=== PATIENT | female | born 1945 | race Caucasian/White ===

== ENCOUNTER 2017-07-31 12:07 | Emergency (ER) | payer MEDICARE, BC, SELFPAY ==
[2017-07-31 12:31] VITALS: BP 97/61; PULSE 68; RESP 20; TEMP 36.4; O2SAT 98; BMI 26.3
--- NOTE | 2017-07-31 12:55 | HMH.EDUTC ---
[facility] [place] Disposition Clinical Impression: Vomiting and diarrhea Disposition: Home, Self-Care Condition on Discharge: Good Instructions: DI for Vomiting -- Adult, Diarrhea, DI for Nausea -- Adult Additional Instructions: Follow up with family doctor tomorrow at appointment at 10am Return if needed Make sure to drink plenty of water, gatoraide etc Dry toast and crackers will help with upset stomach Collect stool sample and bring back to Lab with order you was given in [facility] Prescriptions: Ondansetron [Zofran 4mg ODT] 4 mg PO Q8H PRN #20 tab.rapdis PRN Reason: Nausea Referrals: Michelle Finley [Referring] - Time of Disposition: 13:44 Medical Decision Making Vital Signs: 07/31/17 12:31 Temperature 97.5 F L Temperature Source Temporal Artery Scan Pulse Rate [Right] 68 Respiratory Rate 20 Blood Pressure [Right Arm] 97/61 Blood Pressure Mean [Right Arm] 73 Blood Pressure Source [Right Arm] Automatic Cuff Blood Pressure Position [Right Arm] Sitting 02 Sat by Pulse Oximetry 98 Oxygen Delivery Method Room Air - Lab Data Lab results reviewed: Yes: I reviewed the patient's lab results. Orders (Tests/Meds): ED MEDICATIONS Discontinued Medications Generic Name Dose Route Start Last Admin Trade Name Freq PRN Reason Stop Dose Admin Ondansetron HCl 4 mg 07/31/17 13:06 07/31/17 13:15 Zofran 4mg Odt SL 07/31/17 13:07 4 mg ONCE ONE Administration ORDERS Category Date Time Status Diarrhea Panel, PCR Stat Lab 07/31/17 13:07 Ordered - Cj Inquiry Pt receiving controlled substance: No Cj was queried for this patient: No - Reevaluation(s) Time: 13:04 Reevaluation #1: Patient family doctor Dr Michelle Finley with [facility] Primary care. Called office and informed them of patient complaint and agreed Patient given appointment in the morning and Diarrhea Panel will be ordered here with request that results be sent to Dr Finley and patient to follow up in the morning at 10:00 For results and treatment. No distress Time: 13:27 Reevaluation #3: Patient no diarrhea since arrival advised that she is unable to collect specimen at this time Patient was given out patient order and specimen collection cup and advised that after she collects specimen bring it straight to lab. It was recommended to patient that she have a bolus of NS due to all the diarrhea and vomiting. Mucous membranes moist at that this time and patient refused Iv and bolus [facility] [place] HPI - General Stated complaint: Diarrhea left side pain Mode of Arrival: Ambulatory Source of Information: Patient Limitations: No Limitations Description of Symptoms (Recalled from Triage Doc. by RN): ABD PAIN, DIARRHEA SINCE THURSDAY, ON AMOX FOR BRONCHITIS HEENT Symptoms (Recalled from RN notes): No Resp Symptoms (Recalled from RN notes): No Skin Symptoms (Recalled from RN notes): No MS Symptoms (Recalled from RN notes): No Functional Status (Recalled from RN notes): N - History of Present Illness Provider Complaint: Patient state that she has recently being treated with Amoxicillin for Bronchitits States that for last couple of days she has been having abd. cramping, nausea, vomiting and diarrhea. State that this morning her diarrhea was watery and her family made her come in to get checked State that she is not sure if she may have a virus or if this because of the medication - Related Data Home Medications Medication Instructions Recorded Confirmed Metoprolol Tartrate [Lopressor 50 mg PO BID 07/31/17 07/31/17 50mg tablet] Previous Rx's Medication Instructions Recorded Ondansetron [Zofran 4mg ODT] 4 mg PO Q8H PRN #20 tab.rapdis 07/31/17 Allergies Allergy/AdvReac Type Severity Reaction Status Date / Time cephalexin [From Keflex] Allergy Intermediate Verified 07/31/17 12:35 erythromycin base Allergy Intermediate Verified 07/31/17 12:35 [From Erythrocin] Sulfa (Sulfonamide Allergy
--- NOTE | 2017-07-31 12:58 | ED_ITS ---
[facility] [place] Disposition Clinical Impression: Vomiting and diarrhea Disposition: Home, Self-Care Condition on Discharge: Good Instructions: DI for Vomiting -- Adult, Diarrhea, DI for Nausea -- Adult Additional Instructions: Follow up with family doctor tomorrow at appointment at 10am Return if needed Make sure to drink plenty of water, gatoraide etc Dry toast and crackers will help with upset stomach Collect stool sample and bring back to Lab with order you was given in [facility] Prescriptions: Ondansetron [Zofran 4mg ODT] 4 mg PO Q8H PRN #20 tab.rapdis PRN Reason: Nausea Referrals: Michelle Finley [Referring] - Time of Disposition: 13:44 Medical Decision Making Vital Signs: 07/31/17 12:31 Temperature 97.5 F L Temperature Source Temporal Artery Scan Pulse Rate [Right] 68 Respiratory Rate 20 Blood Pressure [Right Arm] 97/61 Blood Pressure Mean [Right Arm] 73 Blood Pressure Source [Right Arm] Automatic Cuff Blood Pressure Position [Right Arm] Sitting 02 Sat by Pulse Oximetry 98 Oxygen Delivery Method Room Air - Lab Data Lab results reviewed: Yes: I reviewed the patient's lab results. Orders (Tests/Meds): ED MEDICATIONS Discontinued Medications Generic Name Dose Route Start Last Admin Trade Name Freq PRN Reason Stop Dose Admin Ondansetron HCl 4 mg 07/31/17 13:06 07/31/17 13:15 Zofran 4mg Odt SL 07/31/17 13:07 4 mg ONCE ONE Administration ORDERS Category Date Time Status Diarrhea Panel, PCR Stat Lab 07/31/17 13:07 Ordered - Cj Inquiry Pt receiving controlled substance: No Cj was queried for this patient: No - Reevaluation(s) Time: 13:04 Reevaluation #1: Patient family doctor Dr Michelle Finley with [facility] Primary care. Called office and informed them of patient complaint and agreed Patient given appointment in the morning and Diarrhea Panel will be ordered here with request that results be sent to Dr Finley and patient to follow up in the morning at 10:00 For results and treatment. No distress Time: 13:27 Reevaluation #3: Patient no diarrhea since arrival advised that she is unable to collect specimen at this time Patient was given out patient order and specimen collection cup and advised that after she collects specimen bring it straight to lab. It was recommended to patient that she have a bolus of NS due to all the diarrhea and vomiting. Mucous membranes moist at that this time and patient refused Iv and bolus [facility] [place] HPI - General Stated complaint: Diarrhea left side pain Mode of Arrival: Ambulatory Source of Information: Patient Limitations: No Limitations Description of Symptoms (Recalled from Triage Doc. by RN): ABD PAIN, DIARRHEA SINCE THURSDAY, ON AMOX FOR BRONCHITIS HEENT Symptoms (Recalled from RN notes): No Resp Symptoms (Recalled from RN notes): No Skin Symptoms (Recalled from RN notes): No MS Symptoms (Recalled from RN notes): No Functional Status (Recalled from RN notes): N - History of Present Illness Provider Complaint: Patient state that she has recently being treated with Amoxicillin for Bronchitits States that for last couple of days she has been having abd. cramping, nausea, vomiting and diarrhea. State that this morning her diarrhea was watery and her family made her come in to get checked State that she is not sure if she may have a virus or if this
== END 2017-07-31 13:52 | disposition home or self-care (01) ==
PROVIDERS: Emergency Provider Nurse Practitioner
DX: R11.10 Vomiting, unspecified (principal); R19.7 Diarrhea, unspecified; Z79.899 Other long term (current) drug therapy; F17.210 Nicotine dependence, cigarettes, uncomplicated; Z88.3 Allergy status to other anti-infective agents; Z88.2 Allergy status to sulfonamides; Z88.8 Allergy status to other drugs, medicaments and biological substances
CPT/HCPCS: 99201

== ENCOUNTER → 2018-02-18 09:37 | Outpatient (CLI) | payer MEDICARE, BC, SELFPAY ==
--- NOTE | 2018-02-18 09:51 | XR_ITS ---
XR hip LT 2-3V w/pelvis HISTORY: ITS.REASON: Left HIP AND LEG PAIN ORDERING PHYSICIAN: Michelle Finley PATIENT AGE: 72 years COMPARISON: None FINDINGS: No fracture or dislocation is evident. Mild osteoarthritic changes noted of the left hip with mild spurring of the acetabulum inferiorly. Chondrocalcinosis involves the symphysis pubis. No lytic or blastic change. IMPRESSION: Mild osteoarthritis of left hip
--- NOTE | 2018-02-18 09:51 | XR_ITS ---
XR hip RT 2-3V w/pelvis HISTORY: ITS.REASON: RT HIP AND LEG PAIN ORDERING PHYSICIAN: Michelle Finley PATIENT AGE: 72 years COMPARISON: None FINDINGS: No fracture or dislocation is evident. There are mild osteoarthritic changes of the right hip. No lytic or blastic change. IMPRESSION: Mild osteoarthritis of the right hip.
== END ==
PROVIDERS: PCP Family Medicine; Visit Provider Family Medicine
DX: M79.604 Pain in right leg (principal); M25.551 Pain in right hip
CPT/HCPCS: 73502

== ENCOUNTER 2019-09-15 20:33 | Observation (INO) ==
[2019-09-15 20:58] LABS: Anion Gap 13.7 mEq/L (5-15); Blood Urea Nitrogen 12 mg/dl (7-17); Carbon Dioxide 27 mmol/L (22.0-30.0); Chloride 103 mmol/L (98-107); Glucose 163 mg/dl (74-100); Sodium 140 mmol/L (136-145)
--- NOTE | 2019-09-15 21:19 | Emergency Department Note ---
ED Disposition Clinical Impression: Chest pain at rest Disposition: Admitted as Observation Condition on Discharge: Good - Critical Care Critical Care Time: No Attestation: On 09/15/19, the high probability of a clinically significant, sudden or life threatening deterioration of the following system(s) required my full and direct attention, intervention and personal management. The time I documented below is in addition to time spent performing reported procedures but includes the following listed in this critical care notation. Medical Decision Making - Medical Records Medical records reviewed: Yes: I reviewed the patient's medical records. - Cj Inquiry Pt receiving controlled substance: No Vital Signs: 09/15/19 20:34 Temperature 98.5 F Temperature Source Oral Pulse Rate [Left Radial] 89 Respiratory Rate 16 Blood Pressure [Right Arm] 112/74 Blood Pressure Mean [Right Arm] 86 Blood Pressure Source [Right Arm] Automatic Cuff Blood Pressure Position [Right Arm] Sitting 02 Sat by Pulse Oximetry 98 Oxygen Delivery Method Room Air - Lab Data Lab results reviewed: Yes: I reviewed the patient's lab results. Lab Results 09/15/19 20:40: WBC 6.0, RBC 4.04 L, Hgb 12.2, Hct 38.0, MCV 94.1, MCH 30.3, MCHC 32.2, RDW 13.1, Plt Count 169, MPV 9.6, Neut % (Auto) 55.7, Lymph % (Auto) 35.2, [place] % (Auto) 6.7, Eos % (Auto) 1.7, Baso % (Auto) 0.6, Neut # (Auto) 3.3, Lymph # (Auto) 2.1, [place] # (Auto) 0.4, Eos # (Auto) 0.1, Baso # (Auto) 0.0 09/15/19 20:40: Sodium 140, Potassium 3.7, Chloride 103, Carbon Dioxide 27, Anion Gap 13.7, BUN 12, Creatinine 0.70, Estimated Creat Clear 55, Estimated GFR 82, Est GFR ( Amer) 100, Glucose 163 H, Calcium 9.0, Troponin I < 0.01 Result diagrams: 09/15/19 20:40 09/15/19 20:40 Orders (Tests/Meds): ED MEDICATIONS Discontinued Medications Generic Name Dose Route Start Last Admin Trade Name Freq PRN Reason Stop Dose Admin Aspirin 324 mg 09/15/19 21:28 09/15/19 21:34 Aspirin 81mg Chewable Tablet PO 09/15/19 21:29 324 mg ONCE ONE Administration Nitroglycerin 1 gm 09/15/19 21:40 Nitroglycerin 1 Inch Oint Udp TD 09/15/19 21:41 ONCE ONE ORDERS Category Date Time Status CT head/brain wo con Stat Cat Scan 09/15/19 20:47 Taken XR chest 2V Stat Exams 09/15/19 20:47 Taken Troponin I Q3H Lab 09/15/19 23:47 Ordered Troponin I Q3H Lab 09/16/19 02:47 Ordered Urinalysis and Microscopic Stat Lab 09/15/19 20:46 Ordered - Radiology Data #1 Image(s): Chest Image Reviewed: Yes I reviewed the patient's radiology image Preliminary Findings: Normal/NAD - ECG Data Tracing #1 Normal Sinus Rhythm: Yes Ischemic changes: non-specific ST-T wave changes - Physician Consults Physician Consulted: ramon Reason -: Admission Chest Pain HPI - General Chief Complaint: Chest Pain Stated Complaint: chest pain Time Seen by Provider: 09/15/19 20:45 Mode of Arrival: Wheelchair Source of Information: Patient, Medical Record Limitations: No Limitations Description of Symptoms (Recalled from ER Triage Doc. by RN): pt stated she had chest pain at home about an hour ago and took two nitro. pt now c/o left arm pain, lower back pain and nausea. per pt daughter the pt has been confused. pt is alert and oriented to person, place and time and denies any chest pain at this time. - History of Present Illness HPI narrative: pt with hx of cad with last stent 2017 and had chest pain and lt upper ext pain last pm and again today with pos relief with ntg - MD complaint: chest pain indicative of cardiac Onset (ago): hour(s) Duration: now resolved Activity at onset: during rest Pain location: left chest Severity: moderate Quality: dull Pain radiation: LUE Relieving factors: nitroglycerin Risk Factors for CAD: Hypertension, Family Hx of CAD Treatments prior to or on arrival for Cardiac Chest Pain: nitroglycerin - DAMION Score for Non-Stemi Age of Patient: 70-79 years old Heart Rate: 70-89 bpm Systolic Blood Pressure: 100-119 mmHg Serum Creatinine: 0.40-0.79 mg/dl CHF [place] Class: I-No CHF Other Risk Factors: None Non-Stemi Risk Score: 131 - Related Data On Oral Contraceptives: No Home Medications Medication Instructions Recorded Confirmed aspirin 81 mg tablet,delayed 81 mg PO DAILY tab 01/12/18 06/03/18 release escitalopram oxalate 20 mg tablet 10 mg PO BID tab 01/12/18 06/03/18 fluticasone propionate 50 1 spray INTRANASAL DAILY g 01/12/18 06/03/18 mcg/actuation nasal spray,suspension simvastatin 40 mg tablet 40 mg PO QPM 01/12/18 06/03/18 tizanidine 4 mg capsule 4 mg PO QHS PRN cap 01/21/18 06/03/18 Amlodipine Besylate [Norvasc 2.5mg 2.5 mg PO DAILY 03/16/18 06/03/18 Tab] metoprolol tartrate 50 mg tablet 25 mg PO BID tab 04/29/18 06/03/18 naproxen 500 mg tablet 500 mg PO BID PRN 04/29/18 06/03/18 Previous Rx's Medication Instructions Recorded nitroglycerin 0.4 mg sublingual 0.4 mg SUBLINGUAL Q5-15M PRN #30 01/21/18 tablet tab omeprazole 40 mg capsule,delayed 40 mg PO QDAY #90 cap 06/03/18 release Allergies Allergy/AdvReac Type Severity Reaction Status Date / Time cephalexin [From Keflex] Allergy Intermediate Verified 06/03/18 11:16 erythromycin base Allergy Intermediate Verified 06/03/18 11:16 [From Erythrocin] Sulfa (Sulfonamide Allergy Intermediate Verified 06/03/18 11:16 Antibiotics) acetaminophen [From Percocet] Allergy Verified 06/03/18 11:16 oxycodone [From Percocet] Allergy Verified 06/03/18 11:16 [facility] History - Hepatitis A Screen Drug use history?: No High risk sexual behaviors?: No History of sexually transmitted infection?: No Currently employed?: No Childcare worker?: No Do you have indoor plumbing?: Yes Do you have electricity?: Yes Attestation statement:: This patient has been screened for Hepatitis A risk factors. I have reviewed the patient's past medical history: Yes Medical History: Reports:: Coronary Artery Disease, Myocardial Infarction Denies:: Diabetes Mellitus Type 1, Diabetes Mellitus Type 2, Internal Pacemaker, Lung Disease, Seizures Other Surgeries: Yes: Appendectomy, Cardiac Catheterization, Cholecystectomy, Coronary Stent, Hysterectomy-Partial. No: Pacemaker Amputation: No Fractures: No - Social History Smoking Status: Current every day smoker Tobacco Type: cigarettes # Packs/Day (cigarettes): 1 #Yrs smoked (if former smoker): 50 Alcohol Intake: never Alcohol Intake Frequency:: holidays/special occasions only Substance Use Type: denies use Occupational Status: retired Household Members: none Family Hx:: Coronary Artery Disease, Heart Attack, Cancer ROS Obtained: Yes All systems reviewed & no additional complaints - Constitutional Constitutional: Denies fever(s) - Eyes Eyes: Denies change in vision - ENT Ears, Nose, Mouth, and Throat: Denies sore throat - Cardiovascular Cardiovascular: Reports as per HPI, Reports chest pain, Denies dyspnea, Reports radiating jaw, neck or arm pain - Respiratory Respiratory: No cough - Gastrointestinal Gastrointestingal: Denies: abdominal pain - Genitourinary Female Genitourinary: Denies hematuria - Musculoskeletal Musculoskeletal: Denies joint pain, Denies joint swelling - Integumentary/Breasts Skin/Breast: Denies rash - Neurologic Neurologic: Denies headache(s), Denies seizure-like activity Physical Exam - General General appearance: alert - Head Head exam: normocephalic - Eye Eye exam: Present: PERRL, EOMI. Absent: scleral icterus - ENT ENT exam: Present: mucous membranes moist - Neck Neck exam: Present: trachea midline - Respiratory Respiratory exam: Present: normal lung sounds bilaterally. Absent: respiratory distress - Cardiovascular Cardiovascular exam: Present: regular rate, systolic murmur, +S4 - Abdominal Exam Abdominal exam: Present: soft - Extremities Exam Extremities exam: Present: full ROM. Absent: calf tenderness - Neurological Exam Neurological exam: Present: alert, oriented X3, CN II-XII intact - Psychiatric Psychiatric exam: Present: normal affect - Skin Skin exam: Absent: rash
[2019-09-15 21:27] LABS: Basophils % 0.6 % (0.1-2.0); Eosinophils # 0.1 K/mm3 (0.0-0.4); Eosinophils % 1.7 % (0.1-12.0); Hemoglobin 12.2 g/dL (12.2-16.2); Lymphocytes # 2.1 K/mm3 (0.7-4.5); Lymphocytes % 35.2 % (10-50); Mean Corpuscular HGB Conc 32.2 g/dL (31.8-35.4); Mean Corpuscular Volume 94.1 fl (81-99); Mean Platelet Volume 9.6 fl (7.4-10.4); Monocytes # 0.4 K/mm3 (0.1-1.0); Monocytes % 6.7 % (1.7-9.3); Neutrophils # 3.3 K/mm3 (1.8-7.8); Neutrophils % 55.7 % (37.0-80.0); Platelet Count 169 K/mm3 (142-424); Red Blood Count 4.04 M/mm3 (4.20-5.40); Red Cell Distribution Width 13.1 % (11.5-17.5)
[2019-09-15 22:11] LABS: Microscopic, Urine URINE MICROSCOPIC (MICROSCOPIC)
[2019-09-15 22:14] LABS: Appearance,Urine CLEAR (Clear); Bilirubin,Urine Negative (Negative); Blood, Urine Negative (Negative); Color,Urine YELLOW (Yellow); Glucose,Urine (UA) Negative (Negative); Ketones,Urine Negative (Negative); Leukocyte Esterase,Urine Negative (Negative); Protein,Urine Negative (Negative); Urobilinogen,Urine 0.2 EU/dl (0.2)
[2019-09-15 22:21] LABS: WBC,Urine Occasional #/hpf (0-3)
[2019-09-15 22:22] LABS: Bacteria,Urine Trace /lpf
[2019-09-16 06:25] LABS: Basophils % 0.4 % (0.1-2.0); Eosinophils # 0.1 K/mm3 (0.0-0.4); Hematocrit 35.5 % (37.0-47.0); Hemoglobin 11.9 g/dL (12.2-16.2); Lymphocytes # 1.8 K/mm3 (0.7-4.5); Mean Corpuscular HGB Conc 33.5 g/dL (31.8-35.4); Mean Corpuscular Volume 91.6 fl (81-99); Mean Platelet Volume 9.4 fl (7.4-10.4); Monocytes # 0.3 K/mm3 (0.1-1.0); Monocytes % 6.6 % (1.7-9.3); Neutrophils # 2.5 K/mm3 (1.8-7.8); Neutrophils % 53.1 % (37.0-80.0); Platelet Count 163 K/mm3 (142-424); Red Blood Count 3.88 M/mm3 (4.20-5.40); White Blood Count 4.7 K/mm3 (4.8-10.8)
[2019-09-16 06:39] LABS: Anion Gap 10.8 mEq/L (5-15); Calcium 8.9 mg/dl (8.4-10.2); Chol/HDL Ratio 2.9 (1-3.5)
--- NOTE | 2019-09-16 08:06 | Pharmacy Consult Notes ---
[facility] Pharmacy VTE Monitoring - Patient Demographics Admission date: 09/16/19 Report Date: 09/16/19 Time: 08:05 Allergies/Adverse Reactions: Patient Allergies cephalexin [From Keflex] Allergy (Intermediate, Verified 06/03/18 11:16) erythromycin base [From Erythrocin] Allergy (Intermediate, Verified 06/03/18 11:16) Sulfa (Sulfonamide Antibiotics) Allergy (Intermediate, Verified 06/03/18 11:16) acetaminophen [From Percocet] Allergy (Verified 06/03/18 11:16) oxycodone [From Percocet] Allergy (Verified 06/03/18 11:16) Height: 1.68 m Weight: 69.655 kg Patient Problems: Current Active Problems Chest pain at rest (Acute) - VTE Risk Labs: VTE Related Lab Results Hgb 11.9 g/dL (12.2-16.2) L 09/16/19 05:50 Hct 35.5 % (37.0-47.0) L 09/16/19 05:50 Plt Count 163 K/mm3 (142-424) 09/16/19 05:50 BUN 10 mg/dl (7-17) 09/16/19 05:50 Creatinine 0.50 mg/dl (0.52-1.04) L D 09/16/19 05:50 Estimated Creat Clear 56 mL/min (50-200) 09/16/19 05:50 Was VTE Risk Assessment Performed: Yes VTE Score: 6 VTE Risk Level: Moderate Risk Clinical Trial Participant: No - Prophylaxis VTE Prophylaxis Ordered?: Yes Types of VTE Prophylaxis: TEDS Knee High
--- NOTE | 2019-09-16 08:16 | History & Physical Report ---
*Admission Date: 09/16/19 *Chief complaint: Chest pain *History of present illness: This 74-year-old white female with known coronary artery disease presented in the emergency room last evening with chest pain, epigastric discomfort and left breast discomfort. She had some radiation to the back and left arm. She had nausea may be some shortness of breath. She took nitroglycerin and the chest pain went away after about 5 minutes. She was watching TV when the onset of the pain occurred. She states that she has a "stent in the maker" placed by Dr. Drew 6 or 7 years ago at [facility]. About [address] Dr[address] Dillon and Dr. EVANGELISTA. She is not had follow-up with them. She had a cardiac catheterization here by Dr. Dillon 2018 but did not require a stent. She has moved here from [facility] to live with her son Pranav Roberto. Her daughter reports some recent confusion and the patient admits to this. She has had some memory loss specifically in terms of searching for words. She is a smoker and continues to smoke a pack of cigarettes per day. She is smoked since the age of 17. There is a strong family history of heart disease. [facility] History Medical History: Reports:: Coronary Artery Disease ("Stent in the maker"), Hyperlipidemia, Hypertension, Myocardial Infarction Denies:: Diabetes Mellitus Type 1, Diabetes Mellitus Type 2, Internal Pacemaker, Lung Disease, Seizures *Have you ever received a pneumonia vaccine?: Yes *Have you received a flu vaccine this season?: Yes Other Medical History: Reports: Cataracts. Denies: Fibromyalgia, Thyroid Disease Laterality Cases: Left: Lumpectomy Other Surgeries: Yes: Appendectomy, Cardiac Catheterization, Cholecystectomy, Coronary Stent, Hysterectomy-Partial. No: Pacemaker Amputation: No Fractures: No - *Social History Educational Level: Attended College Smoking Status: Current every day smoker Tobacco Type: cigarettes # Packs/Day (cigarettes): 1 #Yrs smoked (if former smoker): 50 Alcohol Intake: never Alcohol Intake Frequency:: holidays/special occasions only Substance Use Type: denies use *Occupational Status:: retired Household Members: none *Travel in the last 8 weeks: None Family Hx:: Cancer, Coronary Artery Disease, Diabetes Review of Systems - Constitutional Denies body ache(s), Denies chills - Eyes Denies change in vision - ENT Reports abnormal hearing, Reports dizziness, Denies difficulty swallowing - *Cardiovascular Reports chest pain, Reports chest pain at rest, Reports leg swelling, Denies rapid, pounding, or irregular heartbeat - *Respiratory Reports shortness of breath, Denies chest congestion, Denies cough - *Gastrointestinal Denies abdominal pain - *Genitourinary Reports dribbling after urination, Reports difficulty starting urination (When she was on medication), Reports urinary incontinence - *Musculoskeletal Reports joint pain, Reports back pain - *Neurologic Reports confusion (Her daughter reports some confusion.), Reports memory loss (Particularly when choosing words.), Denies headache(s), Denies seizure-like activity - Hematologic/Lymphatic Denies easy bleeding - Allergic/Immunologic Denies GI upset with certain foods Meds Home Medications Medication Instructions Recorded Confirmed Type aspirin 81 mg tablet,delayed 81 mg PO DAILY tab 01/12/18 09/16/19 History release escitalopram oxalate 20 mg tablet 10 mg PO DAILY tab 01/12/18 09/16/19 History fluticasone propionate 50 1 spray INTRANASAL DAILY g 01/12/18 09/16/19 History mcg/actuation nasal spray,suspension simvastatin 40 mg tablet 40 mg PO HS 01/12/18 09/16/19 History nitroglycerin 0.4 mg sublingual 0.4 mg SUBLINGUAL Q5-15M PRN #30 01/21/18 09/16/19 Rx tablet tab tizanidine 4 mg capsule 4 mg PO HSP PRN cap 01/21/18 09/16/19 History RX: Amlodipine Besylate [Norvasc 2.5 mg PO DAILY 03/16/18 09/16/19 History 2.5mg Tab] omeprazole 40 mg capsule,delayed 40 mg PO QDAY #90 cap 06/03/18 09/16/19 Rx release Ibuprofen [Ibuprofen 600mg 600 mg PO Q6HP PRN 09/16/19 09/16/19 History Tablet] RX: Meclizine HCl 25 mg PO TID PRN 09/16/19 09/16/19 History RX: Metoprolol Tartrate [Lopressor 25 mg PO BID 09/16/19 09/16/19 History 25mg tablet] Allergies Allergy/AdvReac Type Severity Reaction Status Date / Time cephalexin [From Keflex] Allergy Intermediate Verified 06/03/18 11:16 erythromycin base Allergy Intermediate Verified 06/03/18 11:16 [From Erythrocin] Sulfa (Sulfonamide Allergy Intermediate Verified 06/03/18 11:16 Antibiotics) acetaminophen [From Percocet] Allergy Verified 06/03/18 11:16 oxycodone [From Percocet] Allergy Verified 06/03/18 11:16 Exam Vital signs and Labs for Last 24 Hours: Temp Pulse Resp BP Pulse Ox 97.5 F L 65 16 129/78 91 L 09/16/19 04:00 09/16/19 04:00 09/16/19 04:00 09/16/19 04:00 09/16/19 04:00 Laboratory Results - last 24 hr 09/15/19 20:40: WBC 6.0, RBC 4.04 L, Hgb 12.2, Hct 38.0, MCV 94.1, MCH 30.3, MCHC 32.2, RDW 13.1, Plt Count 169, MPV 9.6, Neut % (Auto) 55.7, Lymph % (Auto) 35.2, [place] % (Auto) 6.7, Eos % (Auto) 1.7, Baso % (Auto) 0.6, Neut # (Auto) 3.3, Lymph # (Auto) 2.1, [place] # (Auto) 0.4, Eos # (Auto) 0.1, Baso # (Auto) 0.0 09/15/19 20:40: Sodium 140, Potassium 3.7, Chloride 103, Carbon Dioxide 27, Anion Gap 13.7, BUN 12, Creatinine 0.70, Estimated Creat Clear 55, Estimated GFR 82, Est GFR ( Amer) 100, Glucose 163 H, Calcium 9.0, Troponin I < 0.01 09/15/19 20:44: POC Glucose 186 H 09/15/19 22:07: Urine Color Yellow, Urine Appearance Clear, Urine pH 6.0, Ur Specific [place] 1.020, Urine Protein Negative, Urine Glucose (UA) Negative, Urine Ketones Negative, Urine Blood Negative, Urine Nitrate Negative, Urine Bilirubin Negative, Urine Urobilinogen 0.2, Ur Leukocyte Esterase Negative, Urine WBC Occasional, Ur Squamous Epith Cells 3-5, Urine Bacteria Trace 09/16/19 00:06: Troponin I < 0.01 09/16/19 02:50: Troponin I < 0.01 09/16/19 05:50: WBC 4.7 L, RBC 3.88 L, Hgb 11.9 L, Hct 35.5 L, MCV 91.6, MCH 30.7, MCHC 33.5, RDW 13.0, Plt Count 163, MPV 9.4, Neut % (Auto) 53.1, Lymph % (Auto) 38.0, [place] % (Auto) 6.6, Eos % (Auto) 2.0, Baso % (Auto) 0.4, Neut # (Auto) 2.5, Lymph # (Auto) 1.8, [place] # (Auto) 0.3, Eos # (Auto) 0.1, Baso # (Auto) 0.0 09/16/19 05:50: Sodium 143, Potassium 3.8, Chloride 107, Carbon Dioxide 29, Anion Gap 10.8, BUN 10, Creatinine 0.50 L D, Estimated Creat Clear 56, Estimated GFR 121, Est GFR ( Amer) 147 D, Glucose 97 D, Calcium 8.9, Magnesium 2.1, Triglycerides 56, Cholesterol 129 L, LDL Cholesterol Direct 74.78 L, VLDL Cholesterol 11, HDL Cholesterol 44, Cholesterol/HDL Ratio 2.9 I & O for Last 24 hours: Intake & Output 09/13/19 09/14/19 09/15/19 09/16/19 11:59 11:59 11:59 11:59 Intake Total 249 / 249 Output Total 550 / 550 Balance -301 / -301 Weight 153 lb 9.008 oz - Constitutional no acute distress (No current chest pain.) - *Routine HEENT Exam Head: Present: normocephalic Eye: Present: PERRL ENT: Present: mucous membranes moist (Edentulous wears prostheses) - *Routine Neck Exam Present: supple. Absent: carotid bruit - Routine Chest/Breast/Axilla Exam Chest wall: Absent: tenderness - *Routine Respiratory Exam Present: decreased breath sounds, rales, rhonchi - *Routine Cardiovascular Exam Present: RRR - *Routine Abdominal Exam Present: soft. Absent: tenderness, mass - *Routine Extremities Exam Present: edema (Minimal). Absent: joint swelling - *Routine Neurological Exam Present: alert, oriented X3. Absent: altered mental status, hearing grossly intact (Deficit evident) Assessment and Plan (1) Chest pain at rest Current visit: Yes Status: Acute Category: Medical Code(s): R07.9 - Chest pain, unspecified (2) CAD (coronary artery disease) Current visit: No Status: Chronic Qualifiers: Coronary Disease-Associated Artery/Lesion type: [place] artery [place] vs. transplanted heart: [place] heart Associated angina: angina presence unspecified Qualified Code(s): I25.10 - Atherosclerotic heart disease of [place] coronary artery without angina pectoris Category: Medical Code(s): I25.10 - Atherosclerotic heart disease of [place] coronary artery without angina pectoris (3) Tobacco abuse Current visit: Yes Status: Acute Category: Medical Code(s): Z72.0 - Tobacco use (4) HLD (hyperlipidemia) Current visit: No Status: Chronic Qualifiers: Hyperlipidemia type: mixed hyperlipidemia Qualified Code(s): E78.2 - Mixed hyperlipidemia Category: Medical Code(s): E78.5 - Hyperlipidemia, unspecified - Assessment and plan all Dx Assessment and Plan for all problems:: The patient has been seen by cardiology and cardiac catheterization is planned for today.
--- NOTE | 2019-09-16 08:35 | Consult Report ---
History of Present Illness Consult date: 09/16/19 Requesting physician: Steven Latif Consult reason: chest pain Chief complaint: chest pain Additional Medical History:: 1. CAD A. History of coronary stenting approximately 2012, Dr. KEVIN Derw, [facility] B. Cardiac cath, 01/2018, ANGIOGRAPHIC RESULTS: 1. The left main artery is a mild eccentric 10% stenosis 2. The left anterior descending artery is proximally normal with mid vessel 20% stenoses along a tortuous bend 3. The circumflex artery is nondominant and has proximal 40% stenoses. 4. The right coronary artery is a dominant vessel and has a proximal 40% stenosis followed by an additional 60-70% stenosis immediately proximal to a stent. The distal vessels normal 5. The RODGERS ventriculogram reveals normal 65% 6. The left ventricular end-diastolic pressure 20 mmHg IMPRESSION: 1. Coronary artery disease as described above with the right coronary artery lesion creating an FFR index of 0.84 not meeting hemodynamic significance for stenting 2. Normal ejection fraction 3. Mildly elevated LVEDP 2. Tobacco use 3. Hypertension A. Echo, 01/2018, 1. Left atrium is qualitatively mildly enlarged, left ventricle is normal size, mild concentric left ventricular hypertrophy, visually estimated ejection fraction approximately 50%, there appears to be moderate hypokinesis involving the basal septum and inferobasal wall. 2. The right atrium and right ventricle are mildly enlarged with normal contractility. 3. The aortic valve is thickened and calcified leaflet continue to display mobility. 4. The mitral and tricuspid valve are grossly normal. 5. The pulmonic valve is poorly visualized. 6. No significant pericardial effusion noted. DOPPLER INTERROGATION: Doppler interrogation of the aortic, mitral and tricuspid valvular presence of trace aortic, mild mitral and tricuspid regurgitation, calculated right ventricular systolic pressure is 36 mmHg consistent with mild pulmonary hypertension, grade 1 diastolic dysfunction seen with tissue Doppler evidence of raised left atrial pressure. CONCLUSION: 1. Mildly enlarged left atrium, normal left ventricular size, mild concentric left ventricular hypertrophy, visually estimated ejection fraction 50% with segmental wall motion abnormality described above, grade 1 diastolic dysfunction seen with tissue Doppler evidence of raised left atrial pressure. 2. Mildly enlarged right ventricle with normal contractility. 3. Trace aortic, mild mitral and tricuspid regurgitation calculated right ventricular systolic pressure is 36 mmHg consistent with mild pulmonary hypertension. 4. No significant pericardial effusion noted. 4. Hyperlipidemia 5. Memory loss with questionable history of small vessel disease on MRI History of present illness: This 74-year-old white female with known coronary artery disease presented in the emergency room last evening with chest pain, epigastric discomfort and left breast discomfort. She had some radiation to the back and left arm. She had nausea may be some shortness of breath. She took nitroglycerin and the chest pain went away after about 5 minutes. She was watching TV when the onset of the pain occurred. She states that she has a "stent in the maker" placed by Dr. Drew 6 or 7 years ago at [facility]. About 2 years ago she saw Dr. Dillon and Dr. EVANGELISTA. She is not had follow-up with them. She had a cardiac catheterization here by Dr. Dillon 2018 but did not require a stent. She has moved here from [facility] to live with her son Pranav Roberto. Her daughter reports some recent confusion and the patient admits to this. She has had some memory loss specifically in terms of searching for words. She is a smoker and continues to smoke a pack of cigarettes per day. She is smoked since the age of 17. There is a strong family history of heart disease. The above per Dr. Latfi Chest pain last evening is the same as she had prior to stenting in the past. Moderate to severe CAD of RCA in 2018 that did not meet FFR criteria for stenting. Medical therapy recommended. Still smoking. [facility] History Medical History: Reports:: Coronary Artery Disease ("Stent in the maker"), Hyperlipidemia, Hypertension, Myocardial Infarction Denies:: Diabetes Mellitus Type 1, Diabetes Mellitus Type 2, Internal Pacemaker, Lung Disease, Seizures *Have you ever received a pneumonia vaccine?: Yes *Have you received a flu vaccine this season?: Yes Other Medical History: Reports: Cataracts. Denies: Fibromyalgia, Thyroid Disease Laterality Cases: Left: Lumpectomy Other Surgeries: Yes: Appendectomy, Cardiac Catheterization, Cholecystectomy, Coronary Stent, Hysterectomy-Partial. No: Pacemaker Amputation: No Fractures: No - *Social History Educational Level: Attended College Smoking Status: Current every day smoker Tobacco Type: cigarettes # Packs/Day (cigarettes): 1 #Yrs smoked (if former smoker): 50 Alcohol Intake: never Alcohol Intake Frequency:: holidays/special occasions only Substance Use Type: denies use *Occupational Status:: retired Household Members: none *Travel in the last 8 weeks: None Family Hx:: Cancer, Coronary Artery Disease, Diabetes Meds Home Medications Medication Instructions Recorded Confirmed Type aspirin 81 mg tablet,delayed 81 mg PO DAILY tab 01/12/18 09/16/19 History release escitalopram oxalate 20 mg tablet 10 mg PO DAILY tab 01/12/18 09/16/19 History fluticasone propionate 50 1 spray INTRANASAL DAILY g 01/12/18 09/16/19 History mcg/actuation nasal spray,suspension simvastatin 40 mg tablet 40 mg PO HS 01/12/18 09/16/19 History nitroglycerin 0.4 mg sublingual 0.4 mg SUBLINGUAL Q5-15M PRN #30 01/21/18 09/16/19 Rx tablet tab tizanidine 4 mg capsule 4 mg PO HSP PRN cap 01/21/18 09/16/19 History Amlodipine Besylate [Norvasc 2.5mg 2.5 mg PO DAILY 03/16/18 09/16/19 History Tab] omeprazole 40 mg capsule,delayed 40 mg PO QDAY #90 cap 06/03/18 09/16/19 Rx release Ibuprofen [Ibuprofen 600mg 600 mg PO Q6HP PRN 09/16/19 09/16/19 History Tablet] Meclizine HCl 25 mg PO TID PRN 09/16/19 09/16/19 History Metoprolol Tartrate [Lopressor 25 mg PO BID 09/16/19 09/16/19 History 25mg tablet] Allergies Allergy/AdvReac Type Severity Reaction Status Date / Time cephalexin [From Keflex] Allergy Intermediate Verified 06/03/18 11:16 erythromycin base Allergy Intermediate Verified 06/03/18 11:16 [From Erythrocin] Sulfa (Sulfonamide Allergy Intermediate Verified 06/03/18 11:16 Antibiotics) acetaminophen [From Percocet] Allergy Verified 06/03/18 11:16 oxycodone [From Percocet] Allergy Verified 06/03/18 11:16 Review of Systems - Review of Systems Review of systems:: pertinent systems reviewed and negative unless documented below - *Cardiovascular Reports chest pain, Denies shortness of breath - *Respiratory Denies cough, Denies shortness of breath - *Gastrointestinal Denies abdominal pain, Denies nausea, Denies vomiting - *Genitourinary Denies blood in urine - *Musculoskeletal Reports back pain, Denies joint pain - *Neurologic Reports abnormal hearing, Reports confusion (Her daughter reports some confusion.), Reports dizziness, Reports memory loss (Particularly when choosing words.), Denies headache(s), Denies seizure-like activity Exam Vital signs and Labs for Last 24 Hours: Temp Pulse Resp BP Pulse Ox 97.5 F L 65 16 129/78 91 L 09/16/19 04:00 09/16/19 04:00 09/16/19 04:00 09/16/19 04:00 09/16/19 04:00 Laboratory Results - last 24 hr 09/15/19 20:40: WBC 6.0, RBC 4.04 L, Hgb 12.2, Hct 38.0, MCV 94.1, MCH 30.3, MCHC 32.2, RDW 13.1, Plt Count 169, MPV 9.6, Neut % (Auto) 55.7, Lymph % (Auto) 35.2, [place] % (Auto) 6.7, Eos % (Auto) 1.7, Baso % (Auto) 0.6, Neut # (Auto) 3.3, Lymph # (Auto) 2.1, [place] # (Auto) 0.4, Eos # (Auto) 0.1, Baso # (Auto) 0.0 09/15/19 20:40: Sodium 140, Potassium 3.7, Chloride 103, Carbon Dioxide 27, Anion Gap 13.7, BUN 12, Creatinine 0.70, Estimated Creat Clear 55, Estimated GFR 82, Est GFR ( Amer) 100, Glucose 163 H, Calcium 9.0, Troponin I < 0.01 09/15/19 20:44: POC Glucose 186 H 09/15/19 22:07: Urine Color Yellow, Urine Appearance Clear, Urine pH 6.0, Ur Specific [place] 1.020, Urine Protein Negative, Urine Glucose (UA) Negative, Urine Ketones Negative, Urine Blood Negative, Urine Nitrate Negative, Urine Bilirubin Negative, Urine Urobilinogen 0.2, Ur Leukocyte Esterase Negative, Urine WBC Occasional, Ur Squamous Epith Cells 3-5, Urine Bacteria Trace 09/16/19 00:06: Troponin I < 0.01 09/16/19 02:50: Troponin I < 0.01 09/16/19 05:50: WBC 4.7 L, RBC 3.88 L, Hgb 11.9 L, Hct 35.5 L, MCV 91.6, MCH 30.7, MCHC 33.5, RDW 13.0, Plt Count 163, MPV 9.4, Neut % (Auto) 53.1, Lymph % (Auto) 38.0, [place] % (Auto) 6.6, Eos % (Auto) 2.0, Baso % (Auto) 0.4, Neut # (Auto) 2.5, Lymph # (Auto) 1.8, [place] # (Auto) 0.3, Eos # (Auto) 0.1, Baso # (Auto) 0.0 09/16/19 05:50: Sodium 143, Potassium 3.8, Chloride 107, Carbon Dioxide 29, Anion Gap 10.8, BUN 10, Creatinine 0.50 L D, Estimated Creat Clear 56, Estimated GFR 121, Est GFR ( Amer) 147 D, Glucose 97 D, Calcium 8.9, Magnesium 2.1, Triglycerides 56, Cholesterol 129 L, LDL Cholesterol Direct 74.78 L, VLDL Cholesterol 11, HDL Cholesterol 44, Cholesterol/HDL Ratio 2.9 I & O for Last 24 hours: Intake & Output 09/13/19 09/14/19 09/15/19 09/16/19 11:59 11:59 11:59 11:59 Intake Total 249 / 249 Output Total 550 / 550 Balance -301 / -301 Weight 153 lb 9.008 oz - *Routine HEENT Exam Head: Present: normocephalic Eye: Present: EOMI, PERRL ENT: Present: mucous membranes moist - *Routine Respiratory Exam Present: CTA bilaterally. Absent: accessory muscle use, rales, rhonchi, wheezes - *Routine Cardiovascular Exam Present: RRR. Absent: murmur, gallop, rubs - *Routine Abdominal Exam Present: soft. Absent: tenderness, distended, guarding - *Routine Extremities Exam Absent: edema, calf tenderness - *Routine Neurological Exam Present: alert, oriented X3, moving all extremities Assessment and Plan (1) Chest pain at rest Current visit: Yes Status: Acute Category: Medical Code(s): R07.9 - Chest pain, unspecified (2) CAD (coronary artery disease) Current visit: No Status: Chronic Qualifiers: Coronary Disease-Associated Artery/Lesion type: [place] artery [place] vs. transplanted heart: [place] heart Associated angina: angina presence unspecified Qualified Code(s): I25.10 - Atherosclerotic heart disease of [place] coronary artery without angina pectoris Category: Medical Code(s): I25.10 - Atherosclerotic heart disease of [place] coronary artery without angina pectoris (3) Tobacco abuse Current visit: Yes Status: Acute Category: Medical Code(s): Z72.0 - Tobacco use (4) HLD (hyperlipidemia) Current visit: No Status: Chronic Qualifiers: Hyperlipidemia type: mixed hyperlipidemia Qualified Code(s): E78.2 - Mixed hyperlipidemia Category: Medical Code(s): E78.5 - Hyperlipidemia, unspecified - Assessment and plan all Dx Assessment and Plan for all problems:: 1. CP with known CAD/stenting in past and continued tobacco use. Chest pain resolved with nitroglycerin x2. Concern for recurrent significant coronary artery disease. Patient is on 2 antianginal medication along with aspirin therapy. Recommend proceeding with left heart catheterization today for further evaluation. 2. Continue home medications including aspirin, amlodipine, statin and metoprolol. 3. Further recommendations to follow pending above results.
[2019-09-17 05:34] LABS: Basophils % 0.5 % (0.1-2.0); Eosinophils # 0.1 K/mm3 (0.0-0.4); Eosinophils % 3.1 % (0.1-12.0); Hematocrit 37.2 % (37.0-47.0); Lymphocytes # 1.8 K/mm3 (0.7-4.5); Lymphocytes % 40.6 % (10-50); Mean Corpuscular HGB Conc 32.3 g/dL (31.8-35.4); Mean Corpuscular Volume 94.1 fl (81-99); Mean Platelet Volume 9.8 fl (7.4-10.4); Monocytes # 0.3 K/mm3 (0.1-1.0); Monocytes % 7.1 % (1.7-9.3); Neutrophils # 2.2 K/mm3 (1.8-7.8); Neutrophils % 48.8 % (37.0-80.0); Platelet Count 156 K/mm3 (142-424); Red Blood Count 3.95 M/mm3 (4.20-5.40); Red Cell Distribution Width 13.1 % (11.5-17.5); White Blood Count 4.5 K/mm3 (4.8-10.8)
[2019-09-17 05:48] LABS: Anion Gap 7.1 mEq/L (5-15); Calcium 8.8 mg/dl (8.4-10.2)
--- NOTE | 2019-09-17 13:56 | Progress Note ---
Internal Medicine - PN: Subj *Date: 09/17/19 *Time: 13:55 Interval history: The patient is clinically stable. Her heart cath yesterday showed noncritical coronary artery disease. Continued medical management is recommended. She will be discharged today. She will have follow-up with cardiology. She would like to follow-up with Dr. Latif for primary care. This will be arranged. Exam Vital signs and Labs for Last 24 Hours: Temp Pulse Resp BP Pulse Ox 98.4 F 56 L 18 143/69 H 93 L 09/17/19 11:43 09/17/19 11:43 09/17/19 11:43 09/17/19 11:43 09/17/19 11:43 Laboratory Results - last 24 hr 09/17/19 05:10: WBC 4.5 L, RBC 3.95 L, Hgb 12.0 L, Hct 37.2, MCV 94.1, MCH 30.4, MCHC 32.3, RDW 13.1, Plt Count 156, MPV 9.8, Neut % (Auto) 48.8, Lymph % (Auto) 40.6, [place] % (Auto) 7.1, Eos % (Auto) 3.1, Baso % (Auto) 0.5, Neut # (Auto) 2.2, Lymph # (Auto) 1.8, [place] # (Auto) 0.3, Eos # (Auto) 0.1, Baso # (Auto) 0.0 09/17/19 05:10: Sodium 137, Potassium 4.1, Chloride 106, Carbon Dioxide 28, Anion Gap 7.1, BUN 12, Creatinine 0.60, Estimated Creat Clear 58, Estimated GFR 98, Est GFR ( Amer) 119, Glucose 84, Calcium 8.8 I & O for Last 24 hours: Intake & Output 09/15/19 09/16/19 09/17/19 09/18/19 11:59 11:59 11:59 11:59 Intake Total 249 / 489 1836 360 / 360 Output Total 550 / 550 Balance -301 / -61 1836 360 / 360 Weight 153 lb 9.008 oz 158 lb 3 oz - Constitutional no acute distress - *Routine HEENT Exam Head: Present: normocephalic Eye: Present: PERRL ENT: Present: mucous membranes moist - *Routine Respiratory Exam Present: decreased breath sounds, CTA bilaterally - *Routine Cardiovascular Exam Present: RRR - *Routine Abdominal Exam Present: soft. Absent: tenderness - *Routine Extremities Exam Absent: edema Assessment and Plan (1) Chest pain at rest Current visit: Yes Status: Acute Category: Medical Code(s): R07.9 - Chest pain, unspecified (2) CAD (coronary artery disease) Current visit: No Status: Chronic Qualifiers: Coronary Disease-Associated Artery/Lesion type: [place] artery [place] vs. transplanted heart: [place] heart Associated angina: angina presence unspecified Qualified Code(s): I25.10 - Atherosclerotic heart disease of [place] coronary artery without angina pectoris Category: Medical Code(s): I25.10 - Atherosclerotic heart disease of [place] coronary artery without angina pectoris (3) Tobacco abuse Current visit: Yes Status: Acute Category: Medical Code(s): Z72.0 - Tobacco use (4) HLD (hyperlipidemia) Current visit: No Status: Chronic Qualifiers: Hyperlipidemia type: mixed hyperlipidemia Qualified Code(s): E78.2 - Mixed hyperlipidemia Category: Medical Code(s): E78.5 - Hyperlipidemia, unspecified - Assessment and plan all Dx Assessment and Plan for all problems:: Discharged today. Follow-up with cardiology. Follow-up with Dr. Latif for primary care.
--- NOTE | 2019-09-18 22:17 | Discharge Summary ---
General - General Admission date:: 09/15/19 Discharge date: 09/17/19 HPI HPI: This 74-year-old white female with known coronary artery disease presented in the emergency room last evening with chest pain, epigastric discomfort and left breast discomfort. She had some radiation to the back and left arm. She had nausea may be some shortness of breath. She took nitroglycerin and the chest pain went away after about 5 minutes. She was watching TV when the onset of the pain occurred. She states that she has a "stent in the maker" placed by Dr. Drew 6 or 7 years ago at [facility]. About 2 years [address] Dr. Dillon and Dr. EVANGELISTA. She is not had follow-up with them. She had a cardiac catheterization here by Dr. Dillon 2018 but did not require a stent. She has moved here from [facility] to live with her son Pranav Roberto. Her daughter reports some recent confusion and the patient admits to this. She has had some memory loss specifically in terms of searching for words. She is a smoker and continues to smoke a pack of cigarettes per day. She is smoked since the age of 17. There is a strong family history of heart disease. Hospital Course Hospital Course: The patient had a chest x-ray showing COPD but nothing acute. She had a head CT showing nothing acute. Cardiology was consulted and wanted to perform a cardiac catheterization. The heart cath showed no significant flow-limiting stenosis and no need for coronary stenting. Cardiology felt she was stable to be discharged home. The patient did have an echo and carotid duplex which are still pending. She was stable to be discharged and will follow up with cardiology. She will also follow-up with Dr. Latif in the office. Objective Vital signs: Temp Pulse Resp BP Pulse Ox 98.4 F 60 18 143/69 H 93 L 09/17/19 11:43 09/17/19 12:00 09/17/19 11:43 09/17/19 11:43 09/17/19 11:43 Narrative: - Constitutional no acute distress (No current chest pain.) - *Routine HEENT Exam Head: Present: normocephalic Eye: Present: PERRL ENT: Present: mucous membranes moist (Edentulous wears prostheses) - *Routine Neck Exam Present: supple. Absent: carotid bruit - Routine Chest/Breast/Axilla Exam Chest wall: Absent: tenderness - *Routine Respiratory Exam Present: decreased breath sounds, rales, rhonchi - *Routine Cardiovascular Exam Present: RRR - *Routine Abdominal Exam Present: soft. Absent: tenderness, mass - *Routine Extremities Exam Present: edema (Minimal). Absent: joint swelling - *Routine Neurological Exam Present: alert, oriented X3. Absent: altered mental status, hearing grossly intact (Deficit evident) DS: Diagnosis - Discharge Diagnosis (1) Chest pain at rest Status: Acute (2) CAD (coronary artery disease) Status: Chronic (3) Tobacco abuse Status: Acute (4) HLD (hyperlipidemia) Status: Chronic Discharge Plan - Patient Discharge Instructions ACTIVITY: Continue current activity DIET: low fat, low cholesterol Patient Instructions: Cardiac Catheterization, DI for Cardiac Catheterization, DI for Surgical Site Infection, DI for Chest Pain - Follow up Plan Follow up with: Steven Latif MD [Staff Physician] - 09/21/19 Unknown provider or service follow up:: 09/17/19 14:06 To follow up with Dr. EVANGELISTA as well...call for appt. Disposition: Home, Self-[facility] Medications: Home Medications Medication Instructions Recorded Confirmed Type aspirin 81 mg tablet,delayed 81 mg PO DAILY tab 01/12/18 09/16/19 History release escitalopram oxalate 20 mg tablet 10 mg PO DAILY tab 01/12/18 09/16/19 History fluticasone propionate 50 1 spray INTRANASAL DAILY g 01/12/18 09/16/19 History mcg/actuation nasal spray,suspension simvastatin 40 mg tablet 40 mg PO HS 01/12/18 09/16/19 History nitroglycerin 0.4 mg sublingual 0.4 mg SUBLINGUAL Q5-15M PRN #30 01/21/18 09/16/19 Rx tablet tab tizanidine 4 mg capsule 4 mg PO HSP PRN cap 01/21/18 09/16/19 History Amlodipine Besylate [Norvasc 2.5mg 2.5 mg PO DAILY 03/16/18 09/16/19 History Tab] Ibuprofen [Ibuprofen 600mg 600 mg PO Q6HP PRN 09/16/19 09/16/19 History Tablet] Meclizine HCl 25 mg PO TID PRN 09/16/19 09/16/19 History Metoprolol Tartrate [Lopressor 25 mg PO BID 09/16/19 09/16/19 History 25mg tablet] Omeprazole [Omeprazole 40mg 40 mg PO QDAY #30 cap 09/17/19 Rx Capsule] Prescriptions/Medication Reconciliation: New Omeprazole [Omeprazole 40mg Capsule] 40 mg PO QDAY #30 cap Continued simvastatin 40 mg tablet 40 mg PO HS aspirin 81 mg tablet,delayed release 81 mg PO DAILY tab escitalopram oxalate 20 mg tablet 10 mg PO DAILY tab fluticasone propionate 50 mcg/actuation nasal spray,suspension 1 spray INTRANASAL DAILY g tizanidine 4 mg capsule 4 mg PO HSP PRN cap PRN Reason: MUSCLE SPASMS nitroglycerin 0.4 mg sublingual tablet 0.4 mg SUBLINGUAL Q5-15M PRN #30 tab PRN Reason: chest pain Amlodipine Besylate [Norvasc 2.5mg Tab] 2.5 mg PO DAILY Metoprolol Tartrate [Lopressor 25mg tablet] 25 mg PO BID Meclizine HCl 25 mg PO TID PRN PRN Reason: Dizziness Ibuprofen [Ibuprofen 600mg Tablet] 600 mg PO Q6HP PRN PRN Reason: PAIN - Problem Reconciliation Problems Reviewed?: Yes
--- NOTE | 2019-09-19 18:26 | Cardiology Report ---
APPROVED REPORT Product Development Consultant: Hortencia Palacios RVT Laterality: Bilateral Study Quality: Good Indications: ASCVD, carotid stenosis Risk Factors Hypertension: Doppler Spectral Velocity Analysis ECA (R) 65.90/11.80 cm/sECA (L) 52.70/8.70 cm/s dICA (R) 70.60/22.10 cm/sdICA (L) 62.50/16.40 cm/s Vanessa (R) 70.10/17.60 cm/smICA (L) 56.00/13.50 cm/s pICA (R) 69.70/20.70 cm/spICA (L) 45.00/13.80 cm/s dCCA (R) 66.20/16.30 cm/sdCCA (L) 56.90/15.20 cm/s pCCA (R) 59.90/16.00 cm/spCCA (L) 69.20/19.60 cm/s Vert (R) 39.30/10.80 cm/sVert (L) 35.80/10.40 cm/s ICA/CCA 1.07 ICA/CCA 1.10 Conclusion Study suggests 20-49% stenosis of the right internal cartoid artery. Study suggests 20-49% stenosis of the left internal cartoid artery. Antegrade flow seen bilateral vertebral arteries. Electronically signed by : Arcadio Payne MD 09/19/2019 18:26:22
--- NOTE | 2019-09-23 08:01 | Electrocardiograph Report ---
APPROVED REPORT Exam: Resting ECG HR:83 bpm ECG Measurements Heart Rate 83 AXES [place] 138 P 79 QRSd 78 QRS 60 QT 378 T79 QTc 444 <Conclusion> Normal sinus rhythm Nonspecific ST abnormality Abnormal ECG Electronically signed by : Neno Arambula, 09/23/2019 08:00:49
== END 2019-09-17 15:45 | disposition home or self-care (01) ==
LOC: ER 20:33 → 2ND 20:33
PROVIDERS: ADMIT Family Medicine; ATTEND Family Medicine
CPT/HCPCS: 36415; 70450; 71020; 71046; 80048; 80061; 81001; 82962; 83735; 84484; 85025; 93005; 93306; 93458; 93880; 99152; 99285; C1725; C1769; G0378; J1644; Q9967

== ENCOUNTER 2021-09-22 11:50 | Emergency (ER) | payer MEDICARE, SELFPAY ==
--- NOTE | 2021-09-22 12:05 | PC.NURSE ---
Assessed pt, O2 sat 97 on RA with no distress noted at this time.
[2021-09-22 12:55] VITALS: BP 156/86; PULSE 60; O2SAT 95
[2021-09-22 13:00] VITALS: BP 156/86; BP 170/86; PULSE 60; RESP 16; TEMP 36.8; O2SAT 95; BMI 26.6
[2021-09-22 13:15] VITALS: BP 156/86; PULSE 58; O2SAT 95
--- NOTE | 2021-09-22 14:33 | HMH.EDGENADL ---
ED Disposition Clinical Impression: Yeast dermatitis Congestive heart failure Qualifiers: Heart failure type: unspecified Heart failure chronicity: acute Qualified Code(s): I50.9 - Heart failure, unspecified Disposition: Home, Self-Care Condition on Discharge: Good Instructions: DI for Heart Failure, DI for Yeast Infection-Skin Additional Instructions: Lasix as prescribed. Begin tomorrow morning. Call Dr. Murray's office tomorrow to arrange follow-up appointment. Continue current medications for rash as prescribed by your primary care provider and follow-up with your primary care provider, call tomorrow to make appointment. Additional instructions for SHORTNESS OF BREATH: See your physician as soon as possible for further evaluation. Return immediately if worsening shortness of breath or if vomiting, chest pain, fever, coughing of blood, or passing out. Prescriptions: Furosemide [Lasix 20mg tab] 20 mg PO DAILY #7 tab Transmission Status: Received by [id number] Referrals: Michelle Finley [Primary Care Provider] - - Critical Care Critical Care Time: No Attestation: On 09/22/21, the high probability of a clinically significant, sudden or life threatening deterioration of the following system(s) required my full and direct attention, intervention and personal management. The time I documented below is in addition to time spent performing reported procedures but includes the following listed in this critical care notation. Medical Decision Making - Cj Inquiry Pt receiving controlled substance: No Vital Signs: 09/22/21 12:55 09/22/21 13:00 09/22/21 13:15 Temperature 98.2 F Temperature Source Oral Pulse Rate 60 60 58 L Pulse Rate [Left Radial] 60 Respiratory Rate 16 Blood Pressure 156/86 H 170/86 H 156/86 H Blood Pressure [Right Arm] 156/86 H Blood Pressure Mean 119 114 Blood Pressure Mean [Right Arm] 109 02 Sat by Pulse Oximetry 95 95 95 Oxygen Delivery Method Room Air - Lab Data Lab Results 09/22/21 15:14: WBC 5.6, RBC 4.05 L, Hgb 12.8, Hct 39.8, MCV 98.3, MCH 31.6 H, MCHC 32.2, RDW 13.5, Plt Count 140 L, MPV 10.6 H, Neut % (Auto) 66.9, Lymph % (Auto) 24.5, Crockett % (Auto) 6.1, Eos % (Auto) 1.1, Baso % (Auto) 1.4, Neut # (Auto) 3.7, Lymph # (Auto) 1.4, Crockett # (Auto) 0.3, Eos # (Auto) 0.1, Baso # (Auto) 0.1 09/22/21 15:14: Sodium 143, Potassium 3.5, Chloride 108 H, Carbon Dioxide 30, Anion Gap 8.5, BUN 10, Creatinine 0.50 L, Estimated Creat Clear 57, Estimated GFR 121, Est GFR ( Amer) 146, Glucose 111 H, Calcium 8.9, Total Bilirubin 0.5, AST 26, ALT 15, Alkaline Phosphatase 99, Troponin I < 0.01, Total Protein 6.7, Albumin 3.9, Globulin 2.8, Albumin/Globulin Ratio 1.4 09/22/21 15:14: NT-Pro-B Natriuret Pep 1740 H 09/22/21 15:14: D-Dimer 1.02 H Result diagrams: 09/22/21 15:14 09/22/21 15:14 Orders (Tests/Meds): ED MEDICATIONS Discontinued Medications Generic Name Dose Route Start Last Admin Trade Name Freq PRN Reason Stop Dose Admin Furosemide 20 mg 09/22/21 17:22 Furosemide 20 Mg/2 Ml Vial IV 09/22/21 17:23 ONCE ONE Iopamidol 100 ml 09/22/21 16:47 09/22/21 16:48 Iopamidol-370 (76%);100ml Bottle IV 09/22/21 16:48 100 ml ONCE ONE Administration Sodium Chloride 50 ml 09/22/21 16:47 09/22/21 16:48 0.9 % Sodium Chloride 50 Ml Vial IV 09/22/21 16:48 50 ml ONCE ONE Administration Sodium Chloride 10 ml 09/22/21 16:47 09/22/21 16:48 Sodium Chloride 0.9% 10ml Syr (Rad Only) IV 09/22/21 16:48 10 ml ONCE ONE Administration ORDERS Category Date Time Status Troponin I Q3H Lab 09/22/21 18:15 Ordered Troponin I Q3H Lab 09/22/21 21:15 Ordered - Radiology Data #1 Image(s): Chest Image Reviewed: Yes I have reviewed radiologist's interpretation PROCEDURE INFORMATION: Exam: XR Chest Exam date and time: 09/22/2021 3:20 PM Age: 76 years old Clinical indication: Shortness of
--- NOTE | 2021-09-22 15:07 | XR_ITS ---
PROCEDURE INFORMATION: Exam: XR Chest Exam date and time: 09/22/2021 3:20 PM Age: 76 years old Clinical indication: Shortness of breath; Additional info: SOA TECHNIQUE: Imaging protocol: XR of the chest. Views: 2 views. COMPARISON: CR XR CHEST 2V 09/15/2019 9:04 PM FINDINGS: Lungs: Bilateral hyperinflation is present. No focal pneumonia or pneumothorax. Pleural spaces: There are no pleural effusions present. Heart/Mediastinum: Unremarkable. No cardiomegaly. Vasculature: The vasculature demonstrates diffuse mild atherosclerotic calcification. Bones/joints: Unremarkable. IMPRESSION: 1. Bilateral hyperinflation is present. 2. No focal pneumonia or pneumothorax.
--- NOTE | 2021-09-22 15:24 | ECG_ITS ---
APPROVED REPORT Exam: Resting ECG HR:56 bpm ECG Measurements Heart Rate 56 AXES NM 189 P 57 QRSd 86 QRS 59 QT 417 T 59 QTc 409 Conclusion SINUS BRADYCARDIA BORDERLINE ECG UNCONFIRMED REPORT Electronically signed by : Neno Arambula MD 09/22/2021 20:07:16
[2021-09-22 15:30] LABS: Basophils # 0.1 K/mm3 (0-0.2); Basophils % 1.4 % (0.1-2.0); Eosinophils # 0.1 K/mm3 (0.0-0.4); Eosinophils % 1.1 % (0.1-12.0); Hematocrit 39.8 % (37.0-47.0); Hemoglobin 12.8 g/dL (12.2-16.2); Lymphocytes # 1.4 K/mm3 (0.7-4.5); Lymphocytes % 24.5 % (10-50); Mean Corpuscular HGB Conc 32.2 g/dL (31.8-35.4); Mean Corpuscular Hemoglobin 31.6 pg (27.0-31.2); Mean Corpuscular Volume 98.3 fl (81-99); Mean Platelet Volume 10.6 fl (7.4-10.4); Monocytes # 0.3 K/mm3 (0.1-1.0); Monocytes % 6.1 % (1.7-9.3); Neutrophils # 3.7 K/mm3 (1.8-7.8); Neutrophils % 66.9 % (37.0-80.0); Platelet Count 140 K/mm3 (142-424); Red Blood Count 4.05 M/mm3 (4.20-5.40); Red Cell Distribution Width 13.5 % (11.5-17.5); White Blood Count 5.6 K/mm3 (4.8-10.8)
--- NOTE | 2021-09-22 15:33 | PC.NURSE ---
Pt back from XR
[2021-09-22 16:01] LABS: Alanine Aminotransferase 15 U/L (12-78); Albumin Level 3.9 g/dl (3.5-5.0); Albumin/Globulin Ratio 1.4 (1.1-1.8); Alkaline Phosphatase 99 U/L (38-126); Anion Gap 8.5 mEq/L (5-15); Aspartate Amino Transferase 26 U/L (14-36); Bilirubin,Total 0.5 mg/dl (0.2-1.3); Blood Urea Nitrogen 10 mg/dl (7-17); Calcium 8.9 mg/dl (8.4-10.2); Carbon Dioxide 30 mmol/L (22.0-30.0); Chloride 108 mmol/L (98-107); Creatinine Clearance Estimated 57 mL/min (50-200); Estimated Glomerular Filt Rate 121 ml/min (>60); GFR (African American) 146 ML/MIN (>60); Globulin 2.8 g/dL (1.3-3.2); Glucose 111 mg/dl (74-100); Potassium 3.5 mmoL/L (3.5-5.1); Sodium 143 mmol/L (136-145); Total Protein,Serum 6.7 g/dl (6.3-8.2)
[2021-09-22 16:05] LABS: D-Dimer 1.02 ug/mL (0.0-0.5)
[2021-09-22 16:11] LABS: NT Pro Brain Natriuretic Pep. 1740 pg/mL (0-125)
[2021-09-22 16:15] LABS: Troponin I < 0.01 ng/ml (0.00-0.034)
--- NOTE | 2021-09-22 16:32 | CT_ITS ---
PROCEDURE INFORMATION: Exam: CTA Chest With Contrast Exam date and time: 09/22/2021 4:42 PM Age: 76 years old Clinical indication: Shortness of breath; Additional info: Elevated dimer, SOB TECHNIQUE: Imaging protocol: Computed tomographic angiography of the chest with contrast. 3D rendering (Not supervised by radiologist): MIP and/or 3D reconstructed images were created by the technologist. Radiation optimization: All CT scans at this facility use at least one of these dose optimization techniques: automated exposure control; mA and/or kV adjustment per patient size (includes targeted exams where dose is matched to clinical indication); or iterative reconstruction. Contrast material: ISOVUE; Contrast volume: 100 ml; Contrast route: INTRAVENOUS (IV); COMPARISON: CR XR CHEST 2V 09/22/2021 3:20 PM FINDINGS: Pulmonary arteries: No evidence of pulmonary embolism. Aorta: No evidence of aortic dissection. Lungs: Bilateral hyperinflation is present. Pleural spaces: Right pleural effusion is present. Pleural thickening noted along the lateral aspect of the right lower lung. Heart: Unremarkable. No cardiomegaly. No pericardial effusion. Lymph nodes: There is no evidence of mediastinal or hilar lymphadenopathy. Bones/joints: The thoracic spine demonstrates mild degenerative changes at multiple levels. Soft tissues: Unremarkable. IMPRESSION: 1. No evidence of pulmonary embolism. 2. No evidence of aortic dissection. 3. Right pleural effusion is present. 4. Bilateral hyperinflation is present. 5. Pleural thickening noted along the lateral aspect of the right lower lung.
[2021-09-22 18:38] VITALS: BP 151/90; PULSE 62; RESP 17; TEMP 36.8; O2SAT 96
== END 2021-09-22 18:38 | disposition home or self-care (01) ==
PROVIDERS: Emergency Provider Emergency Medicine; PCP Family Medicine
DX: I11.0 Hypertensive heart disease with heart failure (principal); I50.9 Heart failure, unspecified; R07.9 Chest pain, unspecified; R00.1 Bradycardia, unspecified; B37.2 Candidiasis of skin and nail; I25.10 Atherosclerotic heart disease of native coronary artery without angina pectoris; I25.2 Old myocardial infarction; E78.5 Hyperlipidemia, unspecified; F17.210 Nicotine dependence, cigarettes, uncomplicated; Z79.1 Long term (current) use of non-steroidal anti-inflammatories (NSAID); Z79.51 Long term (current) use of inhaled steroids; Z79.82 Long term (current) use of aspirin; Z79.899 Other long term (current) drug therapy; Z88.2 Allergy status to sulfonamides; Z88.6 Allergy status to analgesic agent; Z88.8 Allergy status to other drugs, medicaments and biological substances; Z82.49 Family history of ischemic heart disease and other diseases of the circulatory system; Z83.3 Family history of diabetes mellitus; Z80.9 Family history of malignant neoplasm, unspecified
CPT/HCPCS: 71046; 71275; 80053; 83880; 84484; 85025; 85378; 93005; 96361; 96374; 99285; Q9967

== ENCOUNTER 2022-11-08 20:32 | Inpatient (IN) | payer MEDICARE, SELFPAY ==
[2022-11-08 20:32] VITALS: BP 141/69; PULSE 68; RESP 18; TEMP 36.6; O2SAT 98; BMI 25.8
--- NOTE | 2022-11-08 20:33 | XR_ITS ---
PROCEDURE INFORMATION: Exam: XR Left Hip Exam date and time: 11/08/2022 8:53 PM Age: 77 years old Clinical indication: Injury or trauma; Fall TECHNIQUE: Imaging protocol: Radiologic exam of the left hip. Views: 2 or 3 views hip with pelvis when performed. COMPARISON: CR HIPCMLT XR hip LT 2-3V w/pelvis 02/18/2018 10:07 AM FINDINGS: Bones/joints: Acute left proximal femur fracture with subcapital and intertrochanteric components. Resultant mild varus angulation. Soft tissues: Unremarkable. IMPRESSION: Acute left proximal femur fracture with subcapital and intertrochanteric components.
--- NOTE | 2022-11-08 20:33 | XR_ITS ---
PROCEDURE INFORMATION: Exam: XR Chest Exam date and time: 11/08/2022 8:53 PM Age: 77 years old Clinical indication: Injury or trauma; Fall; Additional info: [place] TECHNIQUE: Imaging protocol: Radiologic exam of the chest. Views: 1 view. COMPARISON: CR XR CHEST 2V 09/22/2021 3:20 PM FINDINGS: Lungs: Lungs are clear. Pleural spaces: No pleural effusion. No pneumothorax. Heart/Mediastinum: Stable cardiomediastinal silhouette. Mild aortic calcifications. Bones/joints: No acute osseous abnormality. IMPRESSION: No acute findings.
[2022-11-08 20:51] LABS: Basophils % 0.3 % (0.1-2.0); Eosinophils # 0.1 K/mm3 (0.0-0.4); Eosinophils % 1.7 % (0.1-12.0); Hematocrit 38.7 % (37.0-47.0); Hemoglobin 12.7 g/dL (12.2-16.2); Lymphocytes # 2.2 K/mm3 (0.7-4.5); Lymphocytes % 28.7 % (10-50); Mean Corpuscular HGB Conc 32.8 g/dL (31.8-35.4); Mean Corpuscular Hemoglobin 30.3 pg (27.0-31.2); Mean Corpuscular Volume 92.4 fl (81-99); Mean Platelet Volume 9.7 fl (7.4-10.4); Monocytes # 0.4 K/mm3 (0.1-1.0); Monocytes % 4.8 % (1.7-9.3); Neutrophils % 64.4 % (37.0-80.0); Platelet Count 153 K/mm3 (142-424); Red Blood Count 4.19 M/mm3 (4.20-5.40); Red Cell Distribution Width 13.6 % (11.5-17.5); White Blood Count 7.8 K/mm3 (4.8-10.8)
--- NOTE | 2022-11-08 21:03 | CT_ITS ---
PROCEDURE INFORMATION: Exam: CT Left Lower Extremity Without Contrast, Hip Exam date and time: 11/08/2022 9:32 PM Age: 77 years old Clinical indication: Injury or trauma; Fall TECHNIQUE: Imaging protocol: CT of the left lower extremity without contrast was performed. Exam focused on the hip. Radiation optimization: All CT scans at this facility use at least one of these dose optimization techniques: automated exposure control; mA and/or kV adjustment per patient size (includes targeted exams where dose is matched to clinical indication); or iterative reconstruction. REPORTING DATA: Count of CT and Cardiac NM exams in prior 12 months: This patient has received 0 known CTs and 0 known cardiac nuclear medicine studies in the 12 months prior to the current study. COMPARISON: CR XR HIP LT 2-3V W/PELVIS 11/08/2022 8:53 PM FINDINGS: Bones/joints: Comminuted intertrochanteric fracture with comminution at the greater trochanter. Mild posterior displacement and angulation. Mild varus angulation. Mild left hip osteoarthrosis. Soft tissues: Unremarkable. Vasculature: Vascular calcifications. Bowel: Colonic diverticulosis. IMPRESSION: Left intertrochanteric fracture with comminution of the greater trochanter and varus angulation. No subcapital component of the fracture.
[2022-11-08 21:04] LABS: Coronavirus 19, PCR Not Detected (NotDetected); Influenza A, PCR Not Detected (NotDetected); Influenza B, PCR Not Detected (NotDetected)
[2022-11-08 21:06] LABS: Chloride 97 mmol/L (98-107); Potassium 4.2 mmoL/L (3.5-5.1); Sodium 138 mmol/L (136-145)
[2022-11-08 21:08] LABS: Alanine Aminotransferase 22 U/L (12-78); Aspartate Amino Transferase 29 U/L (14-36); Blood Urea Nitrogen 22 mg/dl (7-17); Creatinine Clearance Estimated 56 mL/min (50-200); Estimated Glomerular Filt Rate 70 ml/min (>60); GFR (African American) 85 ML/MIN (>60)
[2022-11-08 21:09] LABS: Albumin/Globulin Ratio 1.3 (1.1-1.8); Alkaline Phosphatase 97 U/L (38-126); Anion Gap 15.2 mEq/L (5-15); Bilirubin,Total 0.3 mg/dl (0.2-1.3); Calcium 8.4 mg/dl (8.4-10.2); Carbon Dioxide 30 mmol/L (22.0-30.0); Glucose 83 mg/dl (74-100)
[2022-11-08 22:00] VITALS: BP 128/70; PULSE 70; O2SAT 91
--- NOTE | 2022-11-08 22:04 | PC.NURSE ---
paged dr Hedrick @ this time
--- NOTE | 2022-11-08 22:09 | PC.NURSE ---
on phone with dr Hedrick
--- NOTE | 2022-11-08 22:26 | ECG_ITS ---
APPROVED REPORT Exam: Resting ECG HR:71 bpm ECG Measurements Heart Rate 71 AXES GA 162 P 68 QRSd 86 QRS 66 QT 394 T 68 QTc 417 Conclusion SINUS RHYTHM NONSPECIFIC ST & T-WAVE ABNORMALITY BORDERLINE ECG UNCONFIRMED REPORT Electronically signed by : Neno Arambula MD 11/09/2022 21:44:25
--- NOTE | 2022-11-08 22:35 | EXP.HP ---
History of Present Illness *Admission Date: 11/08/22 *Reason for visit:: left hip pain *History of present illness: Ms. Cordova is a 77 year old female who presented to the ER with complaint of left hip pain after suffering a fall off of her porch this evening. Work-up in the ER, XR hip demonstrated left trochanter hip fracture. Labs were unremarkable. CXR demonstrated clear lung harrison without acute cardiopulmonary process. Discussed with Dr. Sinha, orthopedic surgery plans for OR tomorrow, but wishes for hospitalist service to admit. Patient has a PMHx CAD - S/P PCI/Stent, CHF, HTN, hyperlipidemia, GERD. [facility] Disclaimer: The information contained in this section may have been updated after the patient was seen, as this information can be updated by other users. Medical History CAD (coronary artery disease) Chest pain HLD (hyperlipidemia) HTN (hypertension) Surgical History History of coronary artery stent placement Family History Other Cancer Coronary artery disease Diabetes Social History Smoking Status: Current every day smoker tobacco type: cigarettes packs per day: 1 alcohol intake: never substance use type: denies use current occupational status: retired Travel in the last 8 weeks: None household members: none caffeine: Yes Review of Systems Review of Systems Review of systems:: pertinent systems reviewed and negative unless documented below Constitutional Comments: Lost balance and fell off porch. *Cardiovascular Cardiovascular: Reports chest pain Comments: Complaining of indigestion type discomfort, similar to previous chest pain. No relief from Pepcid. *Gastrointestinal Gastrointestinal: Reports heartburn *Musculoskeletal Musculoskeletal: Reports arthralgias (Left leg), Reports deformity and Reports limited range of motion Meds Home Medications and Allergies Home Medications Medication Instructions Recorded Confirmed Type aspirin 81 mg tablet,delayed 81 mg PO DAILY HEART HEALTH 01/12/18 11/09/22 History release (Adult Low Dose Aspirin) escitalopram oxalate 20 mg tablet 20 mg PO DAILY Depression 01/12/18 11/09/22 History (Lexapro) simvastatin 40 mg tablet 40 mg PO HS Cholesterol 01/12/18 11/09/22 History amlodipine 2.5 mg tablet 2.5 mg PO DAILY Hypertension 03/16/18 11/09/22 History meclizine 25 mg tablet 25 mg PO TIDP PRN Dizziness 09/16/19 11/09/22 History metoprolol tartrate 25 mg tablet 25 mg PO BID Hypertension 09/16/19 11/09/22 History albuterol sulfate 90 mcg/actuation 2 puff inhalation Q4HP PRN Wheezing 11/09/22 11/09/22 History aerosol inhaler diclofenac sodium 75 mg 75 mg PO BID INFLAMMATION/PAIN 11/09/22 11/09/22 History tablet,delayed release furosemide 40 mg tablet 40 mg PO DAILY Edema 11/09/22 11/09/22 History omeprazole 40 mg capsule,delayed 40 mg PO DAILY GERD 11/09/22 11/09/22 History release rivaroxaban 10 mg tablet (Xarelto) 10 mg PO DAILY #35 tabs 11/09/22 Rx tizanidine 2 mg tablet 2 mg PO HSP PRN MUSCLE SPASMS 11/09/22 11/09/22 History tramadol 50 mg tablet 50 mg PO TID PRN pain #60 tabs 11/09/22 Rx New Prescriptions to Start Prescriptions: rivaroxaban [Xarelto] Nishant Hedrick JR tramadol Nishant Hedrick JR Allergies Allergy/AdvReac Type Severity Reaction Status Date / Time cephalexin [From Keflex] Allergy Intermediate Verified 06/03/18 11:16 erythromycin base Allergy Intermediate Verified 06/03/18 11:16 [From Erythrocin] Sulfa (Sulfonamide Allergy Intermediate Verified 06/03/18 11:16 Antibiotics) acetaminophen [From Percocet] Allergy Verified 06/03/18 11:16 oxycodone [From Percocet] Allergy Verified 06/03/18 11:16 Exam Data for Last
[2022-11-08 22:44] VITALS: BP 115/60; PULSE 73; RESP 18; TEMP 36.6; O2SAT 89; BMI 27.0
[2022-11-08 22:53] LABS: Microscopic, Urine URINE MICROSCOPIC (MICROSCOPIC)
[2022-11-08 22:55] LABS: Appearance,Urine CLEAR (Clear); Bilirubin,Urine Negative (Negative); Blood, Urine Negative (Negative); Color,Urine YELLOW (Yellow); Glucose,Urine (UA) Negative (Negative); Ketones,Urine TRACE (Negative); Leukocyte Esterase,Urine Negative (Negative); Nitrate,Urine Negative (Negative); Protein,Urine Negative (Negative); Specific Gravity, Urine >= 1.030 (1.005-1.030)
[2022-11-08 23:08] LABS: Bacteria,Urine 2+ /lpf; Hyaline Casts,Urine Occasional #/lpf (0); Mucus,Urine Trace /lpf
[2022-11-08 23:15] LABS: Troponin I < 0.01 ng/ml (0.00-0.034)
[2022-11-08 23:25] VITALS: BP 140/65; PULSE 68; RESP 18; TEMP 36.6; O2SAT 96
--- NOTE | 2022-11-08 23:39 | PC.NURSE ---
pt arrived to floor at this time
[2022-11-09] VITALS (27 sets, daily range): BP systolic 99–160; BP diastolic 47–76; PULSE 68–96; RESP 15–18; TEMP 36.2–43; O2SAT 89–97; BMI 27.1
--- NOTE | 2022-11-09 00:39 | HMH.EDFALL ---
Discharge Plan Disposition Patient Disposition: Admitted As Inpatient Clinical Impressions Clinical Impression: Hip fracture Discharge ED Provider: Joel Sinha Fall HPI General Chief Complaint: Fall Stated Complaint: fall Time Seen by Provider: 11/08/22 20:33 Mode of Arrival: EMS Source of Information: Patient and EMS Limitations: No Limitations Description of Symptoms (Recalled from ER Triage Doc. by RN): Pt arrives via ems Approx 30 mins ago pt fell off of her porch approx 4 ft and landed on some concrete blocks. Pt denies any loss of consciousness. Denies blood thinner or head injury States that she landed on her left side and is now having left sided hip pain. Pt has a skin tear on her left arm. History of Present Illness HPI Narrative: This is a very pleasant 77-year-old lady with a past medical history of hyper lipidemia, coronary artery disease who is on aspirin who presents with a fall. Patient states she fell off her porch just prior to arrival. Landed on her left side. Complains of left hip pain. Denies any numbness weakness or paresthesias. Did not strike her head. Had no loss of consciousness. Denies any other injuries or complaints at this time other than a skin tear to her left arm. Related Data Home Medications Medication Instructions Recorded Confirmed aspirin 81 mg tablet,delayed 81 mg PO DAILY HEART HEALTH 01/12/18 09/16/19 release (Adult Low Dose Aspirin) escitalopram oxalate 20 mg tablet 10 mg PO DAILY Depression 01/12/18 09/16/19 (Lexapro) fluticasone propionate 50 1 spray intranasal DAILY allergies 01/12/18 09/16/19 mcg/actuation nasal spray,suspension (Allergy Relief (fluticasone)) simvastatin 40 mg tablet 40 mg PO HS Cholesterol 01/12/18 09/16/19 tizanidine 4 mg capsule (Zanaflex) 4 mg PO HSP PRN MUSCLE SPASMS 01/21/18 09/16/19 amlodipine 2.5 mg tablet 2.5 mg PO DAILY Hypertension 03/16/18 09/16/19 ibuprofen 600 mg tablet 600 mg PO Q6HP PRN PAIN 09/16/19 09/16/19 meclizine 25 mg tablet 25 mg PO TID PRN Dizziness 09/16/19 09/16/19 metoprolol tartrate 25 mg tablet 25 mg PO BID Hypertension 09/16/19 09/16/19 Previous Rx's Medication Instructions Recorded nitroglycerin 0.4 mg sublingual 0.4 mg sublingual Q5-15M PRN chest 01/21/18 tablet pain #30 tabs omeprazole 40 mg capsule,delayed 40 mg PO QDAY #30 caps 09/17/19 release furosemide 20 mg tablet 20 mg PO DAILY #7 tabs 09/22/21 Allergies Allergy/AdvReac Type Severity Reaction Status Date / Time cephalexin [From Keflex] Allergy Intermediate Verified 06/03/18 11:16 erythromycin base Allergy Intermediate Verified 06/03/18 11:16 [From Erythrocin] Sulfa (Sulfonamide Allergy Intermediate Verified 06/03/18 11:16 Antibiotics) acetaminophen [From Percocet] Allergy Verified 06/03/18 11:16 oxycodone [From Percocet] Allergy Verified 06/03/18 11:16 [facility] Disclaimer: The information contained in this section may have been updated after the patient was seen, as this information can be updated by other users. Medical History CAD (coronary artery disease) Chest pain HLD (hyperlipidemia) HTN (hypertension) Surgical History History of coronary artery stent placement Family History Other Cancer Coronary artery disease Diabetes Social History Smoking Status: Current every day smoker tobacco type: cigarettes packs per day: 1 alcohol intake: never substance use type: denies use current occupational status: retired Travel in the last 8 weeks: None household members: none caffeine: Yes ROS Obtained: Yes All systems reviewed & no additional complaints except as documented Physical Exam General General appearance: alert and in no apparent distress Head Head exam: atrauma
--- NOTE | 2022-11-09 01:20 | PC.NURSE ---
RECEIVED PHONE REPORT FROM JENNIE MCKEON RN AT [id number]. ADMISSION 77 YO FEMALE FRACTURE LEFT HIP AND SKIN TEAR LEFT ARM S/P FALL AT HOME. PATIENT ARRIVED AT 2335 VIA STRETCHER. ADMITTED TO ROOM 206. ORIENTED TO ROOM AND EQUIPEMENT. DAUGHTER AND DAUGHTER IN LAW AT BEDSIDE.
[2022-11-09 02:09] LABS: Troponin I < 0.01 ng/ml (0.00-0.034)
[2022-11-09 05:02] LABS: Troponin I < 0.01 ng/ml (0.00-0.034)
--- NOTE | 2022-11-09 06:17 | PC.NURSE ---
REMAINS NPO FOR SURGERY. HAS NOT C/O PAIN. HAS SLEPT WELL. 02 AT 3 LNC TO KEEP SATS 90 AND ABOVE. FAMILY MEMBER AT BEDSIDE.
--- NOTE | 2022-11-09 07:50 | EXP.ANES.CKL ---
[facility] Disclaimer: The information contained in this section may have been updated after the patient was seen, as this information can be updated by other users. Medical History CAD (coronary artery disease) Chest pain HLD (hyperlipidemia) HTN (hypertension) Surgical History History of coronary artery stent placement Family History Other Cancer Coronary artery disease Diabetes Social History Smoking Status: Current every day smoker tobacco type: cigarettes packs per day: 1 alcohol intake: never substance use type: denies use current occupational status: retired Travel in the last 8 weeks: None household members: none caffeine: Yes [facility] Anesthesia Checklist Patient Identification Patient Identification: Arm Band and Verbal (Name & ) Structural Data Admitted From: Inpatient Planned Operative Procedure/s: Gamma nail Consent for Planned Operative Procedure(s) Verified: Yes NPO Status Verified Time NPO: 00:00 Additional verifications Anesthesia Reactions: No Airway Assessment C-Spine Mobility Assessed: Yes TMJ Mobility Assessed: Yes Dentition: Edentulous Neurological Assessment Level of Consciousness: Awake Hx Seizures: No Numbness or tingling in extremities: No Anesthesia Plan Anesthesia Risk discussed: Yes Anesthesia Plan: Verified ASA Class: III (E) Anesthesia Type: General
--- NOTE | 2022-11-09 07:55 | EXP.ORTH.CON ---
History of Present Illness *Admission Date: 11/08/22 *History of present illness: Ms. Cordova is a 77 year old female who presented to the ER with complaint of left hip pain after suffering a fall off of her porch this evening. Work-up in the ER, XR hip demonstrated left trochanter hip fracture. Labs were unremarkable. CXR demonstrated clear lung harrison without acute cardiopulmonary process. Patient has a PMHx CAD - S/P PCI/Stent, CHF, HTN, hyperlipidemia, GERD. [facility] Disclaimer: The information contained in this section may have been updated after the patient was seen, as this information can be updated by other users. Medical History CAD (coronary artery disease) Chest pain HLD (hyperlipidemia) HTN (hypertension) Surgical History History of coronary artery stent placement Family History Other Cancer Coronary artery disease Diabetes Social History Smoking Status: Current every day smoker tobacco type: cigarettes packs per day: 1 alcohol intake: never substance use type: denies use current occupational status: retired Travel in the last 8 weeks: None household members: none caffeine: Yes Review of Systems Review of Systems Review of systems:: unable to obtain Constitutional Constitutional: Reports system reviewed and no additional complaints, except as documented Eyes Eyes: Reports system reviewed and no additional complaints, except as documented ENT Ears, Nose, Mouth, and Throat: Reports system reviewed and no additional complaints, except as documented *Cardiovascular Cardiovascular: Reports system reviewed and no additional complaints, except as documented *Respiratory Respiratory: Reports system reviewed and no additional complaints, except as documented *Gastrointestinal Gastrointestinal: Reports system reviewed and no additional complaints, except as documented *Genitourinary Genitourinary: Reports system reviewed and no additional complaints, except as documented *Musculoskeletal Musculoskeletal: Reports arthralgias Integumentary/Breasts Skin/Breast: Reports system reviewed and no additional complaints, except as documented *Neurologic Neurologic: Reports system reviewed and no additional complaints, except as documented Psychiatric Psychiatric: Reports system reviewed and no additional complaints, except as documented Endocrine Endocrine: Reports system reviewed and no additional complaints, except as documented Hematologic/Lymphatic Hematologic/Lymphatic: Reports system reviewed and no additional complaints, except as documented Allergic/Immunologic Allergic/Immunologic: Reports system reviewed and no additional complaints, except as documented Meds Home Medications and Allergies Home Medications Medication Instructions Recorded Confirmed Type aspirin 81 mg tablet,delayed 81 mg PO DAILY HEART HEALTH 01/12/18 09/16/19 History release (Adult Low Dose Aspirin) escitalopram oxalate 20 mg tablet 10 mg PO DAILY Depression 01/12/18 09/16/19 History (Lexapro) fluticasone propionate 50 1 spray intranasal DAILY allergies 01/12/18 09/16/19 History mcg/actuation nasal spray,suspension (Allergy Relief (fluticasone)) simvastatin 40 mg tablet 40 mg PO HS Cholesterol 01/12/18 09/16/19 History nitroglycerin 0.4 mg sublingual 0.4 mg sublingual Q5-15M PRN chest 01/21/18 09/16/19 Rx tablet pain #30 tabs tizanidine 4 mg capsule (Zanaflex) 4 mg PO HSP PRN MUSCLE SPASMS 01/21/18 09/16/19 History amlodipine 2.5 mg tablet 2.5 mg PO DAILY Hypertension 03/16/18 09/16/19 History ibuprofen 600 mg tablet 600 mg PO Q6HP PRN PAIN 09/16/19 09/16/19 History meclizine 25 mg tablet 25 mg PO TID PRN Dizziness 09/16/19 09/16/19 History metoprolol tartrate 25 mg tablet 25 mg PO BID Hyperte
--- NOTE | 2022-11-09 07:58 | PC.NURSE ---
surgery on floor with pt
[2022-11-09 07:59] LABS: Basophils % 0.2 % (0.1-2.0); Eosinophils % 0.3 % (0.1-12.0); Hematocrit 39.3 % (37.0-47.0); Hemoglobin 12.6 g/dL (12.2-16.2); Lymphocytes # 1.3 K/mm3 (0.7-4.5); Lymphocytes % 14.9 % (10-50); Mean Corpuscular HGB Conc 32.1 g/dL (31.8-35.4); Mean Corpuscular Hemoglobin 30.2 pg (27.0-31.2); Mean Corpuscular Volume 94.1 fl (81-99); Mean Platelet Volume 10.4 fl (7.4-10.4); Monocytes # 0.4 K/mm3 (0.1-1.0); Monocytes % 5.1 % (1.7-9.3); Neutrophils # 6.8 K/mm3 (1.8-7.8); Neutrophils % 79.5 % (37.0-80.0); Platelet Count 140 K/mm3 (142-424); Red Blood Count 4.18 M/mm3 (4.20-5.40); Red Cell Distribution Width 13.5 % (11.5-17.5); White Blood Count 8.5 K/mm3 (4.8-10.8)
[2022-11-09 08:06] LABS: Alanine Aminotransferase 159 U/L (12-78); Albumin Level 3.4 g/dl (3.5-5.0); Albumin/Globulin Ratio 1.3 (1.1-1.8); Alkaline Phosphatase 111 U/L (38-126); Aspartate Amino Transferase 203 U/L (14-36); Bilirubin,Total 0.5 mg/dl (0.2-1.3); Blood Urea Nitrogen 20 mg/dl (7-17); Calcium 8.1 mg/dl (8.4-10.2); Carbon Dioxide 29 mmol/L (22.0-30.0); Chloride 103 mmol/L (98-107); Creatinine Clearance Estimated 59 mL/min (50-200); Estimated Glomerular Filt Rate 97 ml/min (>60); GFR (African American) 118 ML/MIN (>60); Globulin 2.7 g/dL (1.3-3.2); Glucose 103 mg/dl (74-100); Sodium 138 mmol/L (136-145); Total Protein,Serum 6.1 g/dl (6.3-8.2)
--- NOTE | 2022-11-09 09:53 | XR_ITS ---
PROCEDURE INFORMATION: Exam: XR Left Hip Exam date and time: 11/09/2022 9:53 AM Age: 77 years old Clinical indication: Injury or trauma; Fall; Fracture of pelvis & hip; Left; Not specified; Neck of femur; Additional info: Left hip replacement TECHNIQUE: Imaging protocol: Radiologic exam of the left hip. Views: 2 or 3 views hip with pelvis when performed. COMPARISON: CT HIP LT WO CON 11/08/2022 9:32 PM FINDINGS: Multiple fluoroscopic spot films performed in the OR during placement of dynamic hip screw transfixing an intertrochanteric fracture left hip. IMPRESSION: As above.
--- NOTE | 2022-11-09 10:05 | EXP.OP.NOTE ---
Date of procedure: 11/09/22 Pre-op Diagnosis:: left intertrochanteric femur fracture Post-op Diagnosis:: same Procedure performed:: 80534: cephalomedullary nail fixation left intertrochanteric femur fracture Surgeon:: Nishant Hedrick JR, MD PRODUCT TEST SPECIALIST:: Maragrita Groves Anesthesia: LEXIE Estimated blood loss (mL): 100 Clinical Note:: 77-year-old female fell off of her porch, complained of left hip pain. Radiographs and CT scan demonstrated left intertrochanteric femur fracture with for which I was consulted. I had a discussion with she and her daughter regarding further management. Given the unstable nature of the fracture, after discussion of risk, benefits, alternatives, they were amenable with the plan for long cephalomedullary nail fixation intertrochanteric femur fracture. We discussed the risk and benefits of surgery. Risks included but were not limited to pain, bleeding, infection, damage to adjacent structures, need for further surgery, wound healing complications, loss of limb, . Patient expressed verbal consent and written consent was obtained for the above procedure. Operative findings:: Appropriate length, alignment, rotation, tip apex distance < 20 mm Operative note:: Patient was identified in preoperative holding. Operative site was marked in indelible ink. History, physical, consent were reviewed and updated. Patient was surrendered to the anesthesia team, taken to the operative suite. The patient was secured onto the fracture table with a belt and tape across the arms and upper chest area. Anesthesia was induced. A perineal post had been placed. The operative extremity was secured down and longitudinal traction applied through the post. The contralateral extremity was secured with pillow and brian wrap to arm. C-arm fluoroscopy was then brought in to check fracture alignment, and it was found to be acceptable on AP and lateral views. The operative extremity was prepped and draped in the usual sterile fashion. The operative team donned sterile gowns and gloves and a timeout was called. All in attendance agreed regarding the patient's identity, procedure, operative site. Weight-based dose of antibiotics was given. A stab wound incision was made proximal to the tip of the greater trochanter and a Steinmann pin placed on the tip of the greater trochanter, localizing it on AP and lateral views to be in the center. This was placed down into the femur to the level of the lesser trochanter. The knife was used to enlarge the opening proximally and a guide placed over the pin down to the tip of the greater trochanter. The drill was used through the guide to open the greater trochanter. A ball-tipped guidewire was placed. The intermediate length cephalomedullary nail was advanced over the guidewire to appropriate position. The placement was checked on AP and lateral views. The triple sleeve cannula was then placed through the guide connected onto the insertion handle. This was placed against the skin and then an incision made through the skin and fascia down onto bone. The cannula was then placed down until it was flush on the bone. The guide pin was drilled up into the center of the femoral head on AP and lateral views. The inner sleeve was then removed, and the length of the blade was measured. Step reamer was advanced to appropriate depth over the wire. A 10.5 mm lag screw of appropriate length was placed with tip apex distance less than 20 mm. Attention was then turned proximally, and the flexible screwdriver was used to tighten down the proximal screw to the lag screw. The distal screws and cannulas were then placed through the targeting device and a small incision made through the skin and fascia allowing it to be placed flush against bone. Drill was used to drill through both cortices. Two interlocking bolts of appropriate length were placed after drilling. Orthogonal fluoroscopic views demonstrated appropriate fracture alignment, safe in
--- NOTE | 2022-11-09 10:08 | XR_ITS ---
PROCEDURE INFORMATION: Exam: XR Left Hip Exam date and time: 11/09/2022 10:37 AM Age: 77 years old Clinical indication: Screening exam; Prior surgery; Surgery date: Post-operative (0-2 days); Additional info: Postop TECHNIQUE: Imaging protocol: Radiologic exam of the left hip. Views: 2 or 3 views hip with pelvis when performed. COMPARISON: SD XR HIP LT 2-3V W/PELVIS 11/09/2022 9:53 AM FINDINGS: Bones/joints: Patient has undergone placement of a cephalomedullary nail transfixing an intertrochanteric fracture of the left hip.. Fracture components are in good alignment and apposition. Hardware is intact. No periprosthetic fracture. Soft tissues: Unremarkable. IMPRESSION: Interval ORIF of intertrochanteric left hip fracture with restored anatomic alignment.
--- NOTE | 2022-11-09 10:28 | P.PNANES_ITS ---
[facility] Anesthesia Record Part I Anesthesia Record I Intake, IV Amount: 100 Estimated blood loss (mL): 100 Urine output (mL): 0 Blood Pressure: 128/76 SaO2: 92 Pulse Rate: 85 Respiratory Rate: 15 Temperature: 98.5 F Patient is:: Drowsy and Oral/Nasal airway Stable to PACU at:: 10:15
--- NOTE | 2022-11-09 10:56 | EXP.PHA.CONS ---
Pharmacy Consult Date: 11/09/22 Time: 10:56 Referring provider: DR. HEDRICK Reason for Consult:: VANCOMYCIN DOSING X48H POST OP. Allergies Allergy/AdvReac Type Severity Reaction Status Date / Time cephalexin [From Keflex] Allergy Intermediate Verified 06/03/18 11:16 erythromycin base Allergy Intermediate Verified 06/03/18 11:16 [From Erythrocin] Sulfa (Sulfonamide Allergy Intermediate Verified 06/03/18 11:16 Antibiotics) acetaminophen [From Percocet] Allergy Verified 06/03/18 11:16 oxycodone [From Percocet] Allergy Verified 06/03/18 11:16 Home Medications Medication Instructions Recorded Confirmed Type aspirin 81 mg tablet,delayed 81 mg PO DAILY HEART HEALTH 01/12/18 11/09/22 History release (Adult Low Dose Aspirin) escitalopram oxalate 20 mg tablet 20 mg PO DAILY Depression 01/12/18 11/09/22 History (Lexapro) simvastatin 40 mg tablet 40 mg PO HS Cholesterol 01/12/18 11/09/22 History amlodipine 2.5 mg tablet 2.5 mg PO DAILY Hypertension 03/16/18 11/09/22 History meclizine 25 mg tablet 25 mg PO TIDP PRN Dizziness 09/16/19 11/09/22 History metoprolol tartrate 25 mg tablet 25 mg PO BID Hypertension 09/16/19 11/09/22 History albuterol sulfate 90 mcg/actuation 2 puff inhalation Q4HP PRN Wheezing 11/09/22 11/09/22 History aerosol inhaler diclofenac sodium 75 mg 75 mg PO BID INFLAMMATION/PAIN 11/09/22 11/09/22 History tablet,delayed release furosemide 40 mg tablet 40 mg PO DAILY Edema 11/09/22 11/09/22 History omeprazole 40 mg capsule,delayed 40 mg PO DAILY GERD 11/09/22 11/09/22 History release rivaroxaban 10 mg tablet (Xarelto) 10 mg PO DAILY #35 tabs 11/09/22 Rx tizanidine 2 mg tablet 2 mg PO HSP PRN MUSCLE SPASMS 11/09/22 11/09/22 History tramadol 50 mg tablet 50 mg PO TID PRN pain #60 tabs 11/09/22 Rx New Prescriptions to Start Prescriptions: rivaroxaban [Xarelto] Nishant Hedrick JR tramadol Nishant Hedrick JR Height: 1.68 m Weight: 76.657 kg Laboratory Results:: Laboratory Results - last 24 hr 11/08/22 20:42: WBC 7.8, RBC 4.19 L, Hgb 12.7, Hct 38.7, MCV 92.4, MCH 30.3, MCHC 32.8, RDW 13.6, Plt Count 153, MPV 9.7, Neut % (Auto) 64.4, Lymph % (Auto) 28.7, [place] % (Auto) 4.8, Eos % (Auto) 1.7, Baso % (Auto) 0.3, Neut # (Auto) 5.0, Lymph # (Auto) 2.2, [place] # (Auto) 0.4, Eos # (Auto) 0.1, Baso # (Auto) 0.0 11/08/22 20:42: Sodium 138, Potassium 4.2, Chloride 97 L, Carbon Dioxide 30, Anion Gap 15.2 H, BUN 22 H, Creatinine 0.80, Estimated Creat Clear 56, Estimated GFR 70, Est GFR ( Amer) 85, Glucose 83, Calcium 8.4, Total Bilirubin 0.3, AST 29, ALT 22, Alkaline Phosphatase 97, Total Protein 7.0, Albumin 4.0, Globulin 3.0, Albumin/Globulin Ratio 1.3 11/08/22 20:57: SARS-CoV-2 (PCR) Not detected, Influenza A Untype (PCR) Not detected, Influenza Type B (PCR) Not detected 11/08/22 22:35: Troponin I < 0.01 11/08/22 22:48: Urine Color Yellow, Urine Appearance Clear, Urine pH 6.0, Ur Specific [place] >= 1.030, Urine Protein Negative, Urine Glucose (UA) Negative, Urine Ketones Trace, Urine Blood Negative, Urine Nitrate Negative, Urine Bilirubin Negative, Urine Urobilinogen 4.0, Ur Leukocyte Esterase Negative, Urine RBC None, Urine WBC 5-10, Ur Squamous Epith Cells 10-20, Urine Bacteria 2+, Hyaline Casts Occasional, Urine Mucus Trace 11/09/22 01:30: Troponin I < 0.01 11/09/22 04:25: Troponin I < 0.01 11/09/22 06:59: WBC 8.5, RBC 4.18 L, Hgb 12.6, Hct 39.3, MCV 94.1, MCH 30.2, MCHC 32.1, RDW 13.5, Plt Count 140 L, MPV 10.4, Neut % (Auto) 79.5, Lymph % (Auto) 14.9, [place] % (Auto) 5.1, Eos % (Auto) 0.3, Baso % (Auto) 0.2, Neut # (Auto) 6.8, Lymph # (Auto) 1.3, [place] # (Auto) 0.4, Eos # (Auto) 0.0, Baso # (Auto) 0.0 11/09/22 06:59: Sodium 138, Potassium 4.0, Chloride 103, Carbon Dioxide 29, Anion Gap 10.0, BUN 20 H, Creatinine 0.60 D, Estimated Creat Clear 59, Estimated GFR 97, Est GFR ( Amer) 118 D, Glucose 103 H D, Calcium 8.1 L, Total Bilirubin 0.5, AST 20
--- NOTE | 2022-11-09 11:30 | SUR.PHASEI ---
1055- Report called to JEANETTE Schaefer 1100- Patient out of PACU and transferred to Med/Surg room 206 in stable condition. Dressing clean dry and intact. Vital signs stable. Bed locked and left in the lowest position. Patient left under the care of JEANETTE Schaefer.
--- NOTE | 2022-11-09 13:52 | EXP.ACUTE.PN ---
Subjective *Date: 11/09/22 *Time: 15:35 Interval history: Tolerated surgery well. Still somewhat groggy after the procedure. On 3 L nasal cannula oxygen. Pain controlled. No nausea or vomiting. No chest pain. Medical Exam Vital signs and Labs for Last 24 Hours: Vital Signs Temp Pulse Pulse Resp BP BP Pulse Ox 11/09/22 11:00 92 H 16 113/52 L 92 L 11/09/22 10:55 90 17 108/64 L 93 L 11/09/22 10:45 86 16 111/67 93 L 11/09/22 10:35 84 17 125/76 95 11/09/22 10:25 87 16 131/73 96 11/09/22 10:15 98.5 F 85 15 128/76 92 L 11/09/22 07:49 97.6 F 96 H 18 104/59 L 95 11/09/22 04:00 97.6 F 70 18 99/47 L 97 11/09/22 04:19 68 11/09/22 00:00 71 11/09/22 00:00 89 L 11/08/22 22:44 97.8 F 73 18 115/60 89 L 11/08/22 23:25 98 F 68 18 140/65 11/08/22 22:00 70 128/70 91 L 11/08/22 20:32 98 F 68 18 141/69 H 98 11/09/22 10:29 98.5 F 85 15 128/76 Intake and Output 11/08/22 11/09/22 11/09/22 23:59 07:59 15:59 Intake Total 0 / 200 200 / 200 Output Total 200 / 200 0 / 200 Balance -200 / 0 200 / 0 Intake: Intake, Oral Amount 0 / 100 100 / 100 Intake, Total IV Amount 100 / 100 Output: Output, Urine Amount 200 / 200 0 / 200 Other: Number of Unmeasured Voids 1 1 Weight 76.204 kg 76.657 kg 76.657 kg Patient Weight 11/09/22 23:59 Weight 76.657 kg Laboratory Results - last 24 hr 11/08/22 20:42: WBC 7.8, RBC 4.19 L, Hgb 12.7, Hct 38.7, MCV 92.4, MCH 30.3, MCHC 32.8, RDW 13.6, Plt Count 153, MPV 9.7, Neut % (Auto) 64.4, Lymph % (Auto) 28.7, [place] % (Auto) 4.8, Eos % (Auto) 1.7, Baso % (Auto) 0.3, Neut # (Auto) 5.0, Lymph # (Auto) 2.2, [place] # (Auto) 0.4, Eos # (Auto) 0.1, Baso # (Auto) 0.0 11/08/22 20:42: Sodium 138, Potassium 4.2, Chloride 97 L, Carbon Dioxide 30, Anion Gap 15.2 H, BUN 22 H, Creatinine 0.80, Estimated Creat Clear 56, Estimated GFR 70, Est GFR ( Amer) 85, Glucose 83, Calcium 8.4, Total Bilirubin 0.3, AST 29, ALT 22, Alkaline Phosphatase 97, Total Protein 7.0, Albumin 4.0, Globulin 3.0, Albumin/Globulin Ratio 1.3 11/08/22 20:57: SARS-CoV-2 (PCR) Not detected, Influenza A Untype (PCR) Not detected, Influenza Type B (PCR) Not detected 11/08/22 22:35: Troponin I < 0.01 11/08/22 22:48: Urine Color Yellow, Urine Appearance Clear, Urine pH 6.0, Ur Specific [place] >= 1.030, Urine Protein Negative, Urine Glucose (UA) Negative, Urine Ketones Trace, Urine Blood Negative, Urine Nitrate Negative, Urine Bilirubin Negative, Urine Urobilinogen 4.0, Ur Leukocyte Esterase Negative, Urine RBC None, Urine WBC 5-10, Ur Squamous Epith Cells 10-20, Urine Bacteria 2+, Hyaline Casts Occasional, Urine Mucus Trace 11/09/22 01:30: Troponin I < 0.01 11/09/22 04:25: Troponin I < 0.01 11/09/22 06:59: WBC 8.5, RBC 4.18 L, Hgb 12.6, Hct 39.3, MCV 94.1, MCH 30.2, MCHC 32.1, RDW 13.5, Plt Count 140 L, MPV 10.4, Neut % (Auto) 79.5, Lymph % (Auto) 14.9, [place] % (Auto) 5.1, Eos % (Auto) 0.3, Baso % (Auto) 0.2, Neut # (Auto) 6.8, Lymph # (Auto) 1.3, [place] # (Auto) 0.4, Eos # (Auto) 0.0, Baso # (Auto) 0.0 11/09/22 06:59: Sodium 138, Potassium 4.0, Chloride 103, Carbon Dioxide 29, Anion Gap 10.0, BUN 20 H, Creatinine 0.60 D, Estimated Creat Clear 59, Estimated GFR 97, Est GFR ( Amer) 118 D, Glucose 103 H D, Calcium 8.1 L, Total Bilirubin 0.5, AST 203 H D, ALT 159 H D, Alkaline Phosphatase 111, Total Protein 6.1 L, Albumin 3.4 L D, Globulin 2.7, Albumin/Globulin Ratio 1.3 I & O for Labs for Last 24 Hours: Intake & Output 11/06/22 11/07/22 11/08/22 11/09/22 23:59 23:59 23:59 23:59 Intake Total 200 / 200 Output Total 200 / 200 Balance 0 / 0 Weight 76.204 kg 76.657 kg Constitutional: Present no acute distress and average body habitus Head: Present atraumatic and normocephalic ENT: Present normal exam Respiratory: Present CTA bilaterally and normal respiratory effort; Absent rhonchi, wheezes or crackles
[2022-11-10] VITALS (9 sets, daily range): BP systolic 94–130; BP diastolic 52–68; PULSE 65–92; RESP 18–20; TEMP 36.4–36.9; O2SAT 88–93; BMI 27.5
[2022-11-10 06:44] LABS: Anion Gap 14.1 mEq/L (5-15); Blood Urea Nitrogen 16 mg/dl (7-17); Calcium 8.2 mg/dl (8.4-10.2); Carbon Dioxide 29 mmol/L (22.0-30.0); Chloride 98 mmol/L (98-107); Creatinine Clearance Estimated 60 mL/min (50-200); Estimated Glomerular Filt Rate 97 ml/min (>60); GFR (African American) 118 ML/MIN (>60); Glucose 112 mg/dl (74-100); Magnesium 2.1 mg/dl (1.6-2.3); Potassium 4.1 mmoL/L (3.5-5.1); Sodium 137 mmol/L (136-145)
[2022-11-10 06:59] LABS: Basophils % 0.2 % (0.1-2.0); Eosinophils % 0.1 % (0.1-12.0); Lymphocytes # 1.6 K/mm3 (0.7-4.5); Lymphocytes % 17.2 % (10-50); Mean Corpuscular Volume 93.8 fl (81-99); Mean Platelet Volume 10.7 fl (7.4-10.4); Monocytes # 0.7 K/mm3 (0.1-1.0); Monocytes % 7.1 % (1.7-9.3); Neutrophils % 75.4 % (37.0-80.0); Platelet Count 126 K/mm3 (142-424); Red Blood Count 3.41 M/mm3 (4.20-5.40); Red Cell Distribution Width 13.7 % (11.5-17.5); White Blood Count 9.3 K/mm3 (4.8-10.8)
[2022-11-10 07:12] LABS: Hemoglobin 10.5 g/dL (12.2-16.2)
--- NOTE | 2022-11-10 07:35 | EXP.ANES.II ---
[facility] Anesthesia Record Part II Anesthesia Record Part II Discharge Time: 11:00 Destination: Second Floor PACU nurse assessment reviewed?: Yes Patient Condition:: Good Anesthesia Complications:: None Swallowing reflex intact?: Yes Cyanosis?: No Blood Pressure: 113/52 Pulse Rate: 92 Temperature: 98.5 F Mental Status: Alert & Oriented Pain level:: 0 Nausea and/or vomitting:: None Intake, IV Amount: 0
--- NOTE | 2022-11-10 07:46 | EXP.ACUTE.PN ---
Subjective *Date: 11/10/22 *Time: 15:11 Interval history: Patient stable on 3 L nasal cannula. Remained afebrile overnight. Labs reviewed and stable. Denies any chest pain, shortness of breath, nausea or vomiting. Denies significant pain in her left hip as long as she is still. Did not require any pain medication overnight. Medical Exam Vital signs and Labs for Last 24 Hours: Vital Signs Temp Pulse Pulse Resp BP BP Pulse Ox 11/10/22 04:15 91 L 11/10/22 04:00 80 11/10/22 04:00 98.0 F 77 18 112/63 88 L 11/10/22 00:00 70 11/10/22 00:00 98.3 F 74 18 124/66 90 L 11/09/22 23:20 11/09/22 20:00 90 11/09/22 20:00 90 L 11/09/22 20:00 98.2 F 88 18 160/60 H 90 L 11/09/22 17:40 97.7 F 87 18 110/57 L 94 L 11/09/22 16:40 98.8 F 88 112/57 L 93 L 11/09/22 15:40 98.7 F 85 109/64 L 93 L 11/09/22 14:40 98.4 F 82 16 110/53 L 93 L 11/09/22 13:40 97.9 F 83 16 109/63 L 94 L 11/09/22 13:10 82 16 102/60 L 93 L 11/09/22 12:40 97.4 F L 82 16 103/65 L 94 L 11/09/22 12:10 81 16 110/61 11/09/22 11:55 80 16 108/64 L 11/09/22 11:40 97.2 F L 78 16 108/57 L 92 L 11/09/22 11:25 97.1 F L 82 16 122/57 L 93 L 11/09/22 11:10 97.3 F L 84 16 121/67 93 L 11/09/22 16:00 80 11/09/22 11:56 80 11/09/22 11:00 92 H 16 113/52 L 92 L 11/09/22 10:55 90 17 108/64 L 93 L 11/09/22 10:45 86 16 111/67 93 L 11/09/22 10:35 84 17 125/76 95 11/09/22 10:25 87 16 131/73 96 11/09/22 10:15 98.5 F 85 15 128/76 92 L 11/09/22 07:49 97.6 F 96 H 18 104/59 L 95 11/10/22 07:36 98.5 F 92 H 113/52 L 11/09/22 10:29 98.5 F 85 15 128/76 FiO2 11/10/22 04:15 11/10/22 04:00 11/10/22 04:00 11/10/22 00:00 11/10/22 00:00 11/09/22 23:20 28 11/09/22 20:00 11/09/22 20:00 11/09/22 20:00 11/09/22 17:40 11/09/22 16:40 11/09/22 15:40 11/09/22 14:40 11/09/22 13:40 11/09/22 13:10 11/09/22 12:40 11/09/22 12:10 11/09/22 11:55 11/09/22 11:40 11/09/22 11:25 11/09/22 11:10 11/09/22 16:00 11/09/22 11:56 11/09/22 11:00 11/09/22 10:55 11/09/22 10:45 11/09/22 10:35 11/09/22 10:25 11/09/22 10:15 11/09/22 07:49 11/10/22 07:36 11/09/22 10:29 Intake and Output 11/09/22 11/09/22 11/10/22 15:59 23:59 07:59 Intake Total 300 / 580 280 / 280 Output Total 250 / 450 0 / 450 900 / 900 Balance 50 / 130 0 / 130 -620 / -620 Intake: Intake, Oral Amount 200 / 200 Intake, Total IV Amount 100 / 380 280 / 280 Vancomycin/Water For Inj (Peg) 280 / 280 1.5 gm In 300 ml @ 150 mls/hr IV Q24H [facility] Rx#:[id number] Output: Output, Urine Amount 250 / 450 0 / 450 900 / 900 Other: Number of Unmeasured Voids 1 1 Weight 76.657 kg 77.621 kg Patient Weight 11/10/22 23:59 Weight 77.621 kg Laboratory Results - last 24 hr 11/09/22 06:59: WBC 8.5, RBC 4.18 L, Hgb 12.6, Hct 39.3, MCV 94.1, MCH 30.2, MCHC 32.1, RDW 13.5, Plt Count 140 L, MPV 10.4, Neut % (Auto) 79.5, Lymph % (Auto) 14.9, [place] % (Auto) 5.1, Eos % (Auto) 0.3, Baso % (Auto) 0.2, Neut # (Auto) 6.8, Lymph # (Auto) 1.3, [place] # (Auto) 0.4, Eos # (Auto) 0.0, Baso # (Auto) 0.0 11/09/22 06:59: Sodium 138, Potassium 4.0, Chloride 103, Carbon Dioxide 29, Anion Gap 10.0, BUN 20 H, Creatinine 0.60 D, Estimated Creat Clear 59, Estimated GFR 97, Est GFR ( Amer) 118 D, Glucose 103 H D, Calcium 8.1 L, Total Bilirubin 0.5, AST 203 H D, ALT 159 H D, Alkaline Phosphatase 111, Total Protein 6.1 L, Albumin 3.4 L D, Globulin 2.7, Albumin/Globulin Ratio 1.3 11/10/22 05:58: WBC 9.3, RBC 3.41 L, Hgb 10.5 L D, Hct 32.0 L, MCV 93.8, MCH 31.0, MCHC 33.0, RDW 13.7, Plt Count 126 L, MPV 10.7 H, Neut % (Auto) 75.4, Lymph % (Auto) 17.2, [place] % (Auto) 7.1, Eos % (Auto) 0.1, Baso % (Auto) 0.2, Neut # (Auto) 7.0, Lymph # (Auto) 1.6, Mo
--- NOTE | 2022-11-10 08:20 | PC.NURSE ---
pt's granddaughter called and wanted an update on patient. Pt stated we could talk to Arlin (granddaugher) and give her information.
--- NOTE | 2022-11-10 09:30 | PC.NURSE ---
SRNA NOTE: PT came to see pt.
--- NOTE | 2022-11-10 10:30 | HMH.PTEV ---
Physical Therapy Evaluation Rehab PT IP Evaluation Start: 11/09/22 10:08 Freq: ONCE Status: Active Protocol: Document 11/10/22 09:15 PHORNE (Rec: 11/10/22 10:30 PHORNE [id number]) Subjective/History History History 77 yowf adm to [facility] after fall from her porch with resulting L hip IT femur fx. Now S/P L femur IMN. She reports she lives with her son and DIL who assist her with ADLs as needed. She reports she was ambulatory independently without AD prior to adm. 3-4 steps to enter the home. Subjective Subjective Pt c/o pain in the L hipe with all movement attempts. She is A&O x 3, but seems mildly confused this am with instructions and has spilled a large amount of coffee on her person and in her bed. Rehab PT IP Eval Objective Appearance Patient Behavior Appropriate Patient Orientation Person,Place,Time Difficulty following instructions none Speech Pattern Clear Ambulation Patient Able to Ambulate No Balance Ability to Arise Able, uses arms to help Sitting Balance Leans or slides in chair Standing Balance Unsteady Dynamic Sitting Balance Ability Poor Dynamic Standing Balance Ability Poor Transfers Bed Transfer Ability Maximum x 1 (75% assist) Chair Transfer Ability Maximum x 1 (75% assist) Sit to Stand Bed Transfer Ability Maximum x 1 (75% assist) Sit to Stand Chair Transfer Ability Maximum x 1 (75% assist) ROM All Extremities PT ROM Status WFL MMT All Extremities PT MMT WFL Abnormal MMT Grade except L LE grossly 2/5 Rehab PT IP prob,goals,plan Problems Date of Evaluation: 11/10/22 PT IP Problems Bed Mobility,Transfers,Gait Rehab Potential Rehab Potential Fair Plan PT Intervention Plan Bed Mobility,Transfers,Gait, Therapeutic Exercise PT Plan Frequency BID Duration LOS Discharge Goals Bed Transfer Ability Moderate x 1 (50% assist) Sit to Stand Chair Transfer Ability Moderate x 1 (50% assist) Ambulation Assistive Device Rolling Walker Ambulation Distance (feet) 10 Discharge Plan PT Discharge Plan Pt is currently most appropriate for rehab
--- NOTE | 2022-11-10 10:35 | SW/DCPLANNER ---
Addendum entered by Elisabeth Heath 11/10/22 13:20: [facility]aria [facility]aya/ [facility] will be on site to evaluate this patient. Original Note: PT/OT evaluated this patient and recommended SNF level of care. I discussed this with patient and she is agreeable to [facility]. I also contacted patient's son (Andrea) to discuss discharge plans. Andrea is agreeable to [facility] at time of discharge and if they can not accept he would prefer [facility]. Per MD patient is medically stable for discharge. Patient information has been faxed to Daria celaya/ [facility].
--- NOTE | 2022-11-10 12:43 | HMH.OTEV ---
OT Inpatient Evaluation Rehab OT IP Evaluation Start: 11/09/22 10:08 Freq: ONCE Status: Active Protocol: Document 11/10/22 12:32 NADEEMJANETTE (Rec: 11/10/22 12:43 JAIDAGIUSEPPE [id number]) Rehab OT IP Assessment Subjective History 77-year-old female fell off of her porch, complained of left hip pain. Radiographs and CT scan demonstrated left intertrochanteric femur fracture with for which I was consulted. I had a discussion with she and her daughter regarding further management. Given the unstable nature of the fracture, after discussion of risk, benefits, alternatives, they were amenable with the plan for long cephalomedullary nail fixation intertrochanteric femur fracture. We discussed the risk and benefits of surgery. Risks included but were not limited to pain, bleeding, infection, damage to adjacent structures, need for further surgery, wound healing complications, loss of limb, . Patient expressed verbal consent and written consent was obtained for the above procedure. I can try to get up. Subjective Patient lives with son and dtr -in-law in 1 story home with 2 -3 YSABEL. Patient independent with all ADLs and fx'l mobility prior to fall at home resulted in fx hip. Instructed Patient on proper hand and foot placement to complete supine->sit @ EOB requiring Max A x2. Patient demonstrated fair dynamic sitting balance with needing Mod/Min A to complete seated balance task at EOB. Attempted to assist with patient to complete SPT with usage of RW, however Patient unable to
--- NOTE | 2022-11-10 12:49 | PC.NURSE ---
pt's daughter called me to the room stating she wanted case management notified of her wanting an advance directive in place prior to patient going to [facility]. Pt's daughter informed that I would call them regarding this request. Daughter was very unpleasant during this conversation when I asked how she was related to the patient and she kept stating that she worked in a hospital for 30 years and that she knows how advance directives work. Elisabeth in case management called to come and speak with patient and her daughter. Ashly patient experience called to be present during conversation.
--- NOTE | 2022-11-10 13:30 | PC.NURSE ---
went to give Zofran through left hand IV and left hand IV leaking at this time. IV removed. Right ac IV used. pt experiencing nausea while working with PT/OT.
--- NOTE | 2022-11-10 16:08 | PC.NURSE ---
pt alert and oriented but does have periods of confusion t/o this shift. ls clear t/o. abdomen soft, nontender, bs active. pt ws given nausea medication once per this shift d/t becoming nauseated while working with therapy. pt total assist. pt sat up in the chair for approx an hour today. pt's left upper arm skin tear dressing changed. pt's daughter visited today and Daria from [facility] came to evaluate patient. At this time the plan is for patient to discharge to [facility] for rehab dependent upon insurance.
--- NOTE | 2022-11-10 16:39 | EXP.DC.SUM ---
General Admission date:: 11/08/22 Discharge date: 11/10/22 HPI HPI HPI: Ms. Cordova is a 77 year old female who presented to the ER with complaint of left hip pain after suffering a fall off of her porch this evening. Work-up in the ER, XR hip demonstrated left trochanter hip fracture. Labs were unremarkable. CXR demonstrated clear lung harrison without acute cardiopulmonary process. Patient has a PMHx CAD - S/P PCI/Stent, CHF, HTN, hyperlipidemia, GERD. Hospital Course Hospital Course Hospital Course: 77-year-old female who sustained hip fracture with fall at home.? Postop day 1.? Excepted for placement at [facility]. Stable for discharge for rehab. Problems addressed as follows: Left Hip Fracture 2' to Fall -Postop day 1.? No complications at this time.? Patient being evaluated by PT and OT today.? Discussed case with therapists, patient will need placement.? Not safe to go home -Xarelto 10 mg daily for DVT prophylaxis -Tramadol 50 mg every 6 hours as needed for pain; instructed nurse to please give dose prior to PT to improve participation and decrease therapy induced pain CAD Hypertension Chronic combined systolic and diastolic CHF -Continue home metoprolol 25 mg twice daily -Continue Lasix 40 mg daily -Held Norvasc during admission. Recommend resuming after discharge. Stable for discharge to nursing facility. Follow-up with orthopedics in the next 1 to 2 weeks. Exam Data for Last 24 hours Vital signs and Labs for Last 24 Hours: Temp Pulse Resp BP Pulse Ox FiO2 97.6 F 71 20 113/61 91 L 28 11/10/22 16:00 11/10/22 16:00 11/10/22 16:00 11/10/22 16:00 11/10/22 16:00 11/09/22 23:20 Laboratory Results - last 24 hr 11/10/22 05:58: WBC 9.3, RBC 3.41 L, Hgb 10.5 L D, Hct 32.0 L, MCV 93.8, MCH 31.0, MCHC 33.0, RDW 13.7, Plt Count 126 L, MPV 10.7 H, Neut % (Auto) 75.4, Lymph % (Auto) 17.2, [place] % (Auto) 7.1, Eos % (Auto) 0.1, Baso % (Auto) 0.2, Neut # (Auto) 7.0, Lymph # (Auto) 1.6, [place] # (Auto) 0.7, Eos # (Auto) 0.0, Baso # (Auto) 0.0 11/10/22 05:58: Sodium 137, Potassium 4.1, Chloride 98, Carbon Dioxide 29, Anion Gap 14.1, BUN 16, Creatinine 0.60, Estimated Creat Clear 60, Estimated GFR 97, Est GFR ( Amer) 118, Glucose 112 H, Calcium 8.2 L, Magnesium 2.1 I & O for Last 24 hours: Intake & Output 11/07/22 11/08/22 11/09/22 11/10/22 23:59 23:59 23:59 23:59 Intake Total 300 / 580 1240 / 1240 Output Total 450 / 450 1900 / 1900 Balance -150 / 130 -660 / -660 Weight 76.204 kg 76.657 kg 77.621 kg Microbiology Reports for the Last 24 Hours: Microbiology 11/08/22 22:48 Urine,Catheterized Urine Culture - Preliminary NO GROWTH AFTER 24 HOURS Constitutional Constitutional: no acute distress and cooperative *Routine HEENT Exam Head: Present normocephalic Eye: Present EOMI and PERRL ENT: Present mucous membranes moist *Routine Neck Exam Neck: Present supple; Absent lymphadenopathy *Routine Respiratory Exam Respiratory: Present CTA bilaterally; Absent rales, rhonchi or stridor *Routine Cardiovascular Exam Cardiovascular: Present RRR *Routine Abdominal Exam Abdominal: Present soft and normoactive bowel sounds; Absent tenderness *Routine Rectal Exam Patient deferred: visual exam *Routine Exam Patient deferred: external exam *Routine Extremities Exam Extremities: Absent cyanosis, clubbing or edema Comments: left upper arm with skin tear; left hip with post op bandage, clean, dry, and intact *Routine Skin Exam Skin: Present warm; Absent rash Comments: small tear on left arm as previously mentioned *Routine Neurological Exam Neurological: Present alert and CN II-XII intact; Absent altered mental status Comments: Oriented to person, place, and situation. Results Data Completed and Pending Labs on day of discharge: Labs from last 24 hours 11/10/22 11/10/22 05:58 05:58 WBC 9.3 RBC 3.41 L Hgb 10.5 L D Hct 32.0 L MCV 93.8 MCH
--- NOTE | 2022-11-10 17:10 | PC.NURSE ---
Called Wolf patients daughter to update her on pt being accepted at [facility] and report being called. Informed her that medications are needed to be picked up.
--- NOTE | 2022-11-10 17:10 | PC.NURSE ---
Called report to Ila at [facility].
--- NOTE | 2022-11-10 18:46 | PC.NURSE ---
Wolf, patients daughter updated on wait time for d/c to [facility]. Awaiting EMS.
--- NOTE | 2022-11-10 19:17 | PC.NURSE ---
Called EMS at [phone] to request pt transport. EMS stated that it would be a while before patient could be transported.
--- NOTE | 2022-11-10 20:28 | PC.NURSE ---
Pt. left with ems at this time.
--- NOTE | 2022-11-10 20:42 | PC.NURSE ---
IV IN RIGHT AC REMOVED, 1/4 VANCOMYCIN HAD INFUSED AT THIS POINT. ACCURATE MAR GIVEN TO EMS STAFF TO GIVE TO [facility]A GONZALES. HOME MEDS LOCKED IN DRAWER GIVEN TO DAUGHTER IN LAW, PT AND FAMILY MEMBER VERBALIZE UNDERSTANDING OF DISCHARGE INSTRUCTIONS. REPORT GIVEN TO EMS PERSONNEL. PT LEFT FLOOR AT 2030.
--- NOTE | 2022-11-11 12:39 | CARE MANAGER ---
Contacted [facility]. Patient is doing well and they deny any questions or concerns. JEANETTE Cantu
== END 2022-11-10 20:28 | DRG 481 ==
LOC: ER 22:23 → 2ND 11-09 02:31
PROVIDERS: Nurse Practitioner; Orthopaedic Surgery; Admitting Provider Internal Medicine Adolescent Medicine; Emergency Provider Emergency Medicine; PCP Family Medicine; Visit Provider Internal Medicine Adolescent Medicine
PROC: 0QH706Z Insertion of Intramedullary Internal Fixation Device into Left Upper Femur, Open Approach (ICD-10-PCS; principal; 2022-11-09 08:00)
DX: S72.142A Displaced intertrochanteric fracture of left femur, initial encounter for closed fracture (principal); I50.42 Chronic combined systolic (congestive) and diastolic (congestive) heart failure; W17.89XA Other fall from one level to another, initial encounter; I25.119 Atherosclerotic heart disease of native coronary artery with unspecified angina pectoris; I11.0 Hypertensive heart disease with heart failure; E78.2 Mixed hyperlipidemia; Z72.0 Tobacco use
CPT/HCPCS: 27245; 36415; 51702; 71045; 73502; 73700; 76000; 80048; 80053; 81001; 83735; 84484; 85025; 87086; 93005; 94760; 97162; 97165; 97530; 99285; C1713; C1769; C1776; C9803; J2405; J3370; U0003; U0005

== ENCOUNTER → 2022-11-28 10:47 | Outpatient (CLI) | payer MEDICARE, SELFPAY ==
--- NOTE | 2022-11-28 10:55 | XR_ITS ---
FINAL REPORT CLINICAL HISTORY: post lt hip fx COMPARISON: 11/09/2022 FINDINGS: Left hip Two views were obtained. There are postoperative changes in the left proximal femur. There are mild degenerative changes of the hips. Intertrochanteric fracture is stable. IMPRESSION: Postsurgical changes. Reviewed, Interpreted and Dictated by Gildardo Crum III, MD Transcribed by Ashly Charlton Authenticated and [facility]
== END ==
LOC: RAD 10:49
PROVIDERS: PCP Family Medicine; Visit Provider Orthopaedic Surgery
DX: M25.552 Pain in left hip; S72.002A Fracture of unspecified part of neck of left femur, initial encounter for closed fracture
CPT/HCPCS: 73502

== ENCOUNTER → 2023-04-27 13:09 | Outpatient (CLI) | payer MEDICARE, SELFPAY ==
[2023-04-27 13:15] LABS: Microscopic, Urine URINE MICROSCOPIC (MICROSCOPIC)
[2023-04-27 13:31] LABS: Appearance,Urine CLEAR (Clear); Bilirubin,Urine Negative (Negative); Blood, Urine Negative (Negative); Glucose,Urine (UA) Negative (Negative); Ketones,Urine TRACE (Negative); Leukocyte Esterase,Urine Negative (Negative); Nitrate,Urine Negative (Negative); Protein,Urine Negative (Negative); Specific Gravity, Urine 1.025 (1.005-1.030)
[2023-04-27 13:33] LABS: Color,Urine Yellow (Yellow)
[2023-04-27 13:43] LABS: Squamous Epithelial Cell,Urine Occasional #/hpf (0-5)
== END ==
LOC: LAB.DROPOF 13:10
PROVIDERS: PCP Family Medicine; Visit Provider Family Medicine
DX: R30.0 Dysuria (principal)
CPT/HCPCS: 81001

== ENCOUNTER 2023-08-14 10:34 | Emergency (ER) | payer OTHER, SELFPAY ==
[2023-08-14] VITALS (13 sets, daily range): BP systolic 107–159; BP diastolic 59–91; PULSE 55–65; RESP 15–16; TEMP 36.7–36.8; O2SAT 92–97; BMI 25.8
--- NOTE | 2023-08-14 11:24 | PC.NURSE ---
Addendum entered by Jelly Licona, EMT 08/14/23 14:06: Dr. Mcpherson Original Note: Dr. Hill at [facility] for pt eval
--- NOTE | 2023-08-14 11:30 | CT_ITS ---
FINAL REPORT CLINICAL HISTORY: fall 2 days ago, hit head COMPARISON: None FINDINGS: Axial images of the head were obtained without contrast. Coronal and sagittal reformatted images were also obtained. This study was performed with techniques to keep radiation doses as low as reasonably achievable (ALARA). Individualized dose reduction techniques using automated exposure control or adjustment of mA and/or kV according to the patient's size were employed. There is moderate atrophy. Periventricular low-attenuation areas are seen consistent with severe chronic ischemic changes, worse than demonstrated on the prior CT dated 09/15/2019. There is no evidence of intracranial hemorrhage or mass. There is no evidence of acute infarct. There is no evidence of shift of the midline structures. No skull abnormality is seen on the bone window images. IMPRESSION: Atrophy and severe periventricular chronic ischemic changes. No acute intracranial abnormality identified. Reviewed, Interpreted and Dictated by Gildardo Crum III, MD Transcribed by Mayi Ramirez Authenticated and [facility]
--- NOTE | 2023-08-14 11:30 | ED_ITS ---
Discharge Plan Disposition Patient Disposition: Xfer Other Condition: Fair Prescriptions Prescriptions: No Action simvastatin 40 mg tablet 40 mg PO HS aspirin [Adult Low Dose Aspirin] 81 mg tablet,delayed release (DR/EC) 81 mg PO DAILY escitalopram oxalate [Lexapro] 20 mg tablet 20 mg PO DAILY metoprolol tartrate 25 MG tablet 25 mg PO BID furosemide 40 mg tablet 40 mg PO DAILY tizanidine 2 mg tablet 2 mg PO HSP PRN (Reason: MUSCLE SPASMS) omeprazole 40 mg capsule,delayed release(DR/EC) 40 mg PO DAILY albuterol sulfate 90 mcg/actuation HFA aerosol inhaler 2 puff INHALATION Q4HP PRN (Reason: Wheezing) Patient Comments: INHALE 2 PUFFS BY MOUTH INTO THE LUNGS EVERY 4 HOURS NEEDED FOR WHEEZING tramadol 50 mg tablet 50 mg PO TID PRN (Reason: pain) Qty: 60 0RF Xarelto 10 mg tablet 10 mg PO DAILY Qty: 35 0RF Rx Instructions: for 35 days sennosides-docusate sodium [Stool Softener-Stimulant Laxat] 8.6-50 mg Tablet 1 tab PO BIDP PRN (Reason: Constipation) Qty: 0 0RF ibuprofen 600 mg Tablet 600 mg PO Q6HP PRN (Reason: Fever Or Mild Pain) Qty: 0 0RF tramadol 50 mg Tablet 50 mg PO Q6HP PRN (Reason: Moderate Pain) 3 Days Qty: 12 0RF amlodipine 2.5 MG tablet 2.5 mg PO DAILY Referrals Follow up/Referrals: Michelle Finley [Primary Care Provider] - See instructions Clinical Impressions Clinical Impression: Closed wedge compression fracture of T12 vertebra, Fall Discharge ED Provider: Yonas Mcpherson General Adult HPI General Chief complaint: Fall Stated complaint: Weakness Time Seen by Provider: 08/14/23 11:23 Mode of Arrival: EMS Source of Information: Patient Limitations: No Limitations Description of Symptoms (Recalled from ER Triage Doc. by RN): pt presents to ED via EMS, for fall. EMS reports pt had fall previous night and pt was unable to get herself up out of the floor. pt lives with son and daughter in law. per EMS report pts family is unable to care for pt at this time. pt reports pain in lower spine and coccyx. pt does have hx of falls. History of Present Illness HPI narrative: 78-year-old female with past medical history significant for CAD, HTN, CHF, presents today for evaluation concerning lower extremity weakness with inability ambulate over the past 2 days. Patient and family report a mechanical fall 2 days ago. She did hit her head but did not lose consciousness. She currently denies any headache, neck pain, chest pain, shortness of breath, abdominal pain, extremity pain. Denies any hip pain. She does note lower back pain that is worse than her baseline. No further complaints. Related Data Home Medications Medication Instructions Recorded Confirmed aspirin 81 mg tablet,delayed 81 mg PO DAILY HEART HEALTH 01/12/18 11/28/22 release (Adult Low Dose Aspirin) escitalopram oxalate 20 mg tablet 20 mg PO DAILY Depression 01/12/18 11/28/22 (Lexapro) simvastatin 40 mg tablet 40 mg PO HS Cholesterol 01/12/18 11/28/22 amlodipine 2.5 mg tablet 2.5 mg PO DAILY Hypertension 03/16/18 11/28/22 metoprolol tartrate 25 mg tablet 25 mg PO BID Hypertension 09/16/19 11/28/22 albuterol sulfate 90 mcg/actuation 2 puff inhalation Q4HP PRN Wheezing 11/09/22 11/28/22 aerosol inhaler furosemide 40 mg tablet 40 mg PO DAILY Edema 11/09/22 11/28/22 omeprazole 40 mg capsule,delayed 40 mg PO DAILY GERD 11/09/22 11/28/22 release tizanidine 2 mg tablet 2 mg PO HSP PRN MUSCLE SPASMS 11/09/22 11/28/22 Previous Rx's Medication Instructions Recorded rivaroxaban 10 mg tablet (Xarelto) 10 mg PO DAILY #35 tabs 11/09/22 tramadol 50 mg tablet 50 mg PO TID PRN pain #60 tabs 11/09/22 ibuprofen 600 mg tablet 600 mg PO Q6HP PRN Fever Or Mild 11/10/22 Pain #0 tabs sennosides 8.6 mg-docusate sodium 1 tab PO BIDP PRN Constipation #0 11/10/22 50 mg tablet (Stool tabs Softener-Stimulant Laxative) tramadol 50 mg tablet 50 mg PO Q6HP PRN Moderate Pain 3 11/10/22 days #12 tabs Allergies Allergy/AdvReac Type Severity Reaction Status Date / Time cephalexin [From Keflex] Allergy Intermediate Verified 11/28/22 12:21 erythromycin base Allergy Intermediate Verified 11/28/22 12:21 [From Erythrocin] Sulfa (Sulfonamide Allergy Intermediate Verified 11/28/22 12:21 Antibiotics) acetaminophen [From Percocet] Allergy Verified 11/28/22 12:21 oxycodone [From Percocet] Allergy Verified 11/28/22 12:21 [facility] Disclaimer: The information contained in this section may have been updated after the patient was seen, as this information can be updated by other users. Medical History (Updated 08/14/23 @ 15:47 by Yonas Mcpherson DO) CAD (coronary artery disease) Chest pain HLD (hyperlipidemia) HTN (hypertension) Sciatica Surgical History (Updated 11/28/22 @ 12:22 by MICHA Corral) History of coronary artery stent placement History of left hip replacement Family History Other Cancer Coronary artery disease Diabetes Social History Smoking Status: Former smoker tobacco type: cigarettes packs per day: 1 alcohol intake: never substance use type: denies use current occupational status: retired Travel in the last 8 weeks: None household members: none caffeine: Yes ROS Obtained: Yes All systems reviewed & no additional complaints except as documented Physical Exam General General appearance: alert and in no apparent distress Head Head exam: atraumatic and normocephalic Eye Eye exam: Present normal appearance, PERRL and EOMI ENT ENT exam: Present normal oropharynx and mucous membranes moist Neck Neck exam: Present full ROM; Absent meningismus Respiratory Respiratory exam: Absent respiratory distress, wheezes, stridor or accessory muscle use Cardiovascular Cardiovascular exam: Present normal rhythm Abdominal Exam Abdominal exam: Present soft; Absent distention, tenderness, guarding, rebound or rigidity Back Exam Back exam: Present tenderness (No midline translocation of the C or T-spine. There is midline tenderness palpation of the lower lumbar spine without step- offs.) Neurological Exam Neurological exam: Present alert, oriented X3 and CN II-XII intact; Absent motor sensory deficit Psychiatric Psychiatric exam: Present normal affect and normal mood Skin Skin exam: Present warm and dry Medical Decision Making Medical Records Medical records reviewed: Yes I reviewed the patient's medical records. Cj Inquiry Pt receiving controlled substance: No Cj was queried for this patient: No Vital Signs: 08/14/23 10:34 08/14/23 11:01 08/14/23 11:30 Temperature 98.2 F Temperature Source Oral Pulse Rate 63 64 Pulse Rate [Left Radial] 65 Respiratory Rate 16 Blood Pressure 148/80 H 159/91 H Blood Pressure [Right Arm] 138/80 Blood Pressure Mean Blood Pressure Mean [Right Arm] 99 02 Sat by Pulse Oximetry 93 L 93 L 93 L Oxygen Delivery Method Room Air Room Air Room Air Oxygen Flow Rate (LPM) 08/14/23 11:39 08/14/23 12:00 08/14/23 12:30 Temperature Temperature Source Pulse Rate 62 59 L 59 L Pulse Rate [Left Radial] Respiratory Rate Blood Pressure 158/81 H 143/73 H 159/79 H Blood Pressure [Right Arm] Blood Pressure Mean 105 Blood Pressure Mean [Right Arm] 02 Sat by Pulse Oximetry 94 L 95 97 Oxygen Delivery Method Nasal Cannula Nasal Cannula Room Air Oxygen Flow Rate (LPM) 1 1 08/14/23 13:00 08/14/23 13:30 08/14/23 14:01 Temperature Temperature Source Pulse Rate 60 55 L 58 L Pulse Rate [Left Radial] Respiratory Rate Blood Pressure 144/85 H 131/70 122/65 Blood Pressure [Right Arm] Blood Pressure Mean 101 Blood Pressure Mean [Right Arm] 02 Sat by Pulse Oximetry 96 93 L 92 L Oxygen Delivery Method Room Air Nasal Cannula Nasal Cannula Oxygen Flow Rate (LPM) 1 1 08/14/23 14:30 08/14/23 15:00 08/14/23 15:30 Temperature Temperature Source Pulse Rate 60 60 58 L Pulse Rate [Left Radial] Respiratory Rate Blood Pressure 116/63 109/60 L 107/59 L Blood Pressure [Right Arm] Blood Pressure Mean 83 Blood Pressure Mean [Right Arm] 02 Sat by Pulse Oximetry 93 L 92 L 92 L Oxygen Delivery Method Nasal Cannula Room Air Oxygen Flow Rate (LPM) 1 Lab Data Lab Results 08/14/23 10:37: WBC 5.1, RBC 4.11 L, Hgb 12.8, Hct 37.4, MCV 90.8, MCH 31.2, MCHC 34.4, RDW 14.0, Plt Count 129 L, MPV 10.1, Neut % (Auto) 64.0, Lymph % (Auto) 23.7, Mcleod % (Auto) 8.6, Eos % (Auto) 3.2, Baso % (Auto) 0.4, Neut # (Auto) 3.2, Lymph # (Auto) 1.2, Mcleod # (Auto) 0.4, Eos # (Auto) 0.2, Baso # (Auto) 0.0, Sodium 139, Potassium 3.5, Chloride 109 H, Carbon Dioxide 28, Anion Gap 5.5, BUN 13, Creatinine 0.70, Estimated Creat Clear 55, Estimated GFR 81, Est GFR ( Amer) 98, Glucose 106 H, Calcium 8.6, Magnesium 2.0, Total Bilirubin 0.5, AST 24, ALT 17, Alkaline Phosphatase 102, Total Protein 6.4, Albumin 3.3 L, Globulin 3.1, Albumin/Globulin Ratio 1.1 08/14/23 10:40: Urine Color Yellow, Urine Appearance Clear, Urine pH 6.0, Ur Specific [place] 1.015, Urine Protein Negative, Urine Glucose (UA) Negative, Urine Ketones Negative, Urine Blood Negative, Urine Nitrate Negative, Urine Bilirubin Negative, Urine Urobilinogen 1.0, Ur Leukocyte Esterase Negative, Urine RBC Occasional, Urine WBC Occasional, Ur Squamous Epith Cells Occasional, Urine Bacteria Trace 08/14/23 10:37 08/14/23 10:37 Orders (Tests/Meds): ED MEDICATIONS Discontinued Medications Generic Name Dose Route Start Last Admin Trade Name Freq PRN Reason Stop Dose Admin Belladonna Alkaloids 60 ml 08/14/23 13:04 08/14/23 13:08 Belladonna Alkaloids 60 Ml Ml PO 08/14/23 13:05 60 ml ONCE ONE Administration Morphine Sulfate 2 mg 08/14/23 11:30 08/14/23 11:35 Morphine 2mg/Ml Syringe IV 08/14/23 11:31 2 mg ONCE ONE Administration Morphine Sulfate 2 mg 08/14/23 13:14 08/14/23 13:18 Morphine 2mg/Ml Syringe IV 08/14/23 13:15 2 mg ONCE ONE Administration Ondansetron HCl 4 mg 08/14/23 11:30 08/14/23 11:35 Ondansetron 4mg/2ml Vial IV 08/14/23 11:31 4 mg ONCE ONE Administration ORDERS Category Date Time Status CT cervical spine wo con Stat Cat Scan 08/14/23 14:[address] head/brain wo con Stat Cat Scan 08/14/23 11:[address] lumbar spine wo con Stat Cat Scan 08/14/23 11:[address] thoracic spine wo con Stat Cat Scan 08/14/23 14:04 Taken Complete Blood Count Auto Diff Stat Lab 08/14/23 10:37 Completed Comprehensive Metabolic Panel Stat Lab 08/14/23 10:37 Completed Magnesium Stat Lab 08/14/23 10:37 Completed Urinalysis and Microscopic Stat Lab 08/14/23 10:40 Completed Medical Decision Narrative: 78-year-old female with past medical history significant for CAD, HTN, CHF, presents today for evaluation concerning lower extremity weakness with inability ambulate over the past 2 days. Patient and family report a mechanical fall 2 days ago. She did hit her head but did not lose consciousness. She does take 81 mg aspirin daily. Complains of lower lumbar pain and also complained of dysuria. On assessment, she is hemodynamically stable and in no acute distress. Afebrile. Chest clear to auscultation bilaterally. Abdomen soft nondistended nontender to palpation. No external signs of trauma on the head. No midline tenderness palpation of the C or T-spine however there was midline tenderness over the lower lumbar spine without step-offs. She has 5 5 strength in bilateral upper and lower extremities however she could not lift her lower extremities off of the bed. Sensation was intact. Differential diagnoses include but not limited to L-spine injury, intracranial bleed, electrolyte disturbance, among others. Patient's lab workup today has been nonactionable. No signs of UTI on urinalysis with negative nitrates, negative leukocyte esterase, trace bacteria, occasional WBCs. I did order CT imaging of the head and did not show any acute intracranial abnormalities. CT imaging of the L-spine revealed a severe T12 co mpression fracture. At this time I did order for dedicated thoracic and C-spine imaging to complete. On reassessment patient remains medically stable and in no acute distress. Discussed ED workup and results with family and current plan to transfer to higher care facility for further management with corporate communications specialist. I did speak to orthopedic surgery at and discussed management and patient was accepted to the ED as a transfer. This plan was discussed with patient and family and they were agreeable. She remains medically stable and in no acute distress at this time. Critical Care Critical Care Time Critical Care Time: No
--- NOTE | 2023-08-14 11:30 | CT_ITS ---
FINAL REPORT TECHNIQUE: Axial imaging of the lumbar spine was obtained without contrast. Sagittal and coronal reformatted images were also obtained and reviewed. This study was performed with techniques to keep radiation doses as low as reasonably achievable (ALARA). Individualized dose reduction techniques using automated exposure control or adjustment of mA and/or kV according to the patient's size were employed. CLINICAL HISTORY: lower lumbar pain, fall 2 days ago COMPARISON: None FINDINGS: There is a severe T12 compression fracture with 80% loss of height of the T12 vertebral body particularly anteriorly. This may be acute or subacute. This fracture was not present on a prior CTA performed 09/22/2021. There is moderate degenerative change present. Multilevel osteophytes and disc space narrowing with vacuum phenomenon at multiple levels is present. There is diffuse osteopenia and moderate vascular calcification. There is no evidence of significant central canal stenosis. IMPRESSION: Severe T12 compression fracture with 80% loss of height of the T12 vertebral body, which may be acute or subacute. This fracture was not present on the prior CT performed 09/22/2021. Moderate degenerative change, space narrowing with vacuum phenomenon, diffuse osteopenia are all present. Reviewed, Interpreted and Dictated by Gildardo Crum III, MD Transcribed by Mayi Ramirez Authenticated and . [facility]
[2023-08-14] MEDS: MORPHINE 2MG/ML SYRINGE 2 MG IV ×2 (11:35→13:18)
[2023-08-14] MEDS: ONDANSETRON 4MG/2ML VIAL 4 MG IV (11:35)
--- NOTE | 2023-08-14 11:41 | PC.NURSE ---
Pt gone to RAD via stretcher
[2023-08-14 11:44] LABS: Basophils % 0.4 % (0.1-2.0); Chloride 109 mmol/L (98-107); Eosinophils # 0.2 K/mm3 (0.0-0.4); Eosinophils % 3.2 % (0.1-12.0); Hematocrit 37.4 % (37.0-47.0); Hemoglobin 12.8 g/dL (12.2-16.2); Lymphocytes # 1.2 K/mm3 (0.7-4.5); Lymphocytes % 23.7 % (10-50); Mean Corpuscular HGB Conc 34.4 g/dL (31.8-35.4); Mean Corpuscular Hemoglobin 31.2 pg (27.0-31.2); Mean Corpuscular Volume 90.8 fl (81-99); Mean Platelet Volume 10.1 fl (7.4-10.4); Monocytes # 0.4 K/mm3 (0.1-1.0); Monocytes % 8.6 % (1.7-9.3); Neutrophils # 3.2 K/mm3 (1.8-7.8); Platelet Count 129 K/mm3 (142-424); Red Blood Count 4.11 M/mm3 (4.20-5.40); White Blood Count 5.1 K/mm3 (4.8-10.8)
[2023-08-14 11:44] LABS: Microscopic, Urine URINE MICROSCOPIC (MICROSCOPIC)
[2023-08-14 11:45] LABS: Potassium 3.5 mmoL/L (3.5-5.1); Sodium 139 mmol/L (136-145)
[2023-08-14 11:47] LABS: Alanine Aminotransferase 17 U/L (12-78); Aspartate Amino Transferase 24 U/L (14-36); Blood Urea Nitrogen 13 mg/dl (7-17); Creatinine Clearance Estimated 55 mL/min (50-200); Estimated Glomerular Filt Rate 81 ml/min (>60); GFR (African American) 98 ML/MIN (>60)
[2023-08-14 11:48] LABS: Albumin Level 3.3 g/dl (3.5-5.0); Albumin/Globulin Ratio 1.1 (1.1-1.8); Alkaline Phosphatase 102 U/L (38-126); Anion Gap 5.5 mEq/L (5-15); Bilirubin,Total 0.5 mg/dl (0.2-1.3); Calcium 8.6 mg/dl (8.4-10.2); Carbon Dioxide 28 mmol/L (22.0-30.0); Globulin 3.1 g/dL (1.3-3.2); Glucose 106 mg/dl (74-100); Total Protein,Serum 6.4 g/dl (6.3-8.2)
[2023-08-14 11:49] LABS: Appearance,Urine CLEAR (Clear); Bilirubin,Urine Negative (Negative); Blood, Urine Negative (Negative); Color,Urine YELLOW (Yellow); Glucose,Urine (UA) Negative (Negative); Ketones,Urine Negative (Negative); Leukocyte Esterase,Urine Negative (Negative); Nitrate,Urine Negative (Negative); Protein,Urine Negative (Negative); Specific Gravity, Urine 1.015 (1.005-1.030)
--- NOTE | 2023-08-14 11:54 | PC.NURSE ---
Pt returned from RAD
--- NOTE | 2023-08-14 12:03 | PC.NURSE ---
Pt placed on supplemental O2 1lpm NC
[2023-08-14 12:25] LABS: Bacteria,Urine Trace /lpf; RBC,Urine Occasional #/hpf (0-3); Squamous Epithelial Cell,Urine Occasional #/hpf (0-5); WBC,Urine Occasional #/hpf (0-3)
[2023-08-14] MEDS: BELLADONNA ALKALOIDS 60 ML ML PO (13:08)
--- NOTE | 2023-08-14 14:01 | PC.NURSE ---
DR MCCRACKEN AT BEDSIDE TO UPDATE FAMILY
--- NOTE | 2023-08-14 14:04 | CT_ITS ---
FINAL REPORT CLINICAL HISTORY: fall FINDINGS: Axial CT images of the cervical spine were obtained without contrast. Sagittal and coronal reformatted images were also obtained. This study was performed with techniques to keep radiation doses as low as reasonably achievable (ALARA). Individualized dose reduction techniques using automated exposure control or adjustment of mA and/or kV according to the patient's size were employed. There is no evidence of fracture or dislocation. There are mild and moderate degenerative changes with multilevel osteophytes. No evidence of central canal stenosis. IMPRESSION: No fracture or acute bony abnormality identified. Reviewed, Interpreted and Dictated by Gildardo Crum III, MD Transcribed by Ashly Charlton Authenticated and [facility]
--- NOTE | 2023-08-14 14:04 | CT_ITS ---
FINAL REPORT TECHNIQUE: Axial images through the thoracic spine were performed. Sagittal reconstruction images were performed. This study was performed with techniques to keep radiation doses as low as reasonably achievable, (ALARA). Individualized dose reduction techniques using automated exposure control or adjustment of mA and/or kV according to the patient's size were employed. CLINICAL HISTORY: T12 fx FINDINGS: There is a severe T12 compression fracture with 80% loss of anterior height. Mild degenerative changes are present. The bones are osteopenic. Multilevel osteophytes are identified. There is a small left effusion. There is moderate emphysema and pulmonary scarring. IMPRESSION: Severe T12 compression fracture. Reviewed, Interpreted and Dictated by Gildardo Crum III, MD Transcribed by Ashly Charlton Authenticated and [facility]
--- NOTE | 2023-08-14 14:10 | PC.NURSE ---
CONTACTED [facility] FOR TRANSFER
--- NOTE | 2023-08-14 14:14 | PC.NURSE ---
Pt gone to CT via stretcher
--- NOTE | 2023-08-14 14:18 | PC.NURSE ---
Pt returned from CT
--- NOTE | 2023-08-14 15:21 | PC.NURSE ---
called [facility] to followup about call back. Advised the provider was in the OR at this time but they would send another page
--- NOTE | 2023-08-14 15:41 | PC.NURSE ---
Dr. Mcpherson speaking with Dr. Dolan, director summer sessions for spine, at [facility]
--- NOTE | 2023-08-14 15:56 | PC.NURSE ---
Notified [facility] of pt transfer to [facility]
== END 2023-08-14 16:27 | disposition other institution (70) ==
PROVIDERS: Emergency Provider Emergency Medicine; PCP Family Medicine
DX: S22.080A Wedge compression fracture of T11-T12 vertebra, initial encounter for closed fracture (principal); I11.0 Hypertensive heart disease with heart failure; I50.9 Heart failure, unspecified; I25.10 Atherosclerotic heart disease of native coronary artery without angina pectoris; R53.1 Weakness; E78.5 Hyperlipidemia, unspecified; Z87.891 Personal history of nicotine dependence; W19.XXXA Unspecified fall, initial encounter; M25.78 Osteophyte, vertebrae; M54.50 Low back pain, unspecified
CPT/HCPCS: 70450; 72125; 72128; 72131; 80053; 81001; 83735; 85025; 96374; 96375; 96376; 99285; J2405

== ENCOUNTER 2025-04-28 08:27 | Emergency (ER) | payer MEDICARE, SELFPAY ==
[2025-04-28] VITALS (11 sets, daily range): BP systolic 97–111; BP diastolic 61–75; PULSE 57–79; RESP 11–24; TEMP 36.7–36.9; O2SAT 90–98; BMI 28.7
--- NOTE | 2025-04-28 08:34 | ECG_ITS ---
APPROVED REPORT Exam: Resting ECG HR:63 bpm ECG Measurements Heart Rate 63 AXES MN 161 P 75 QRSd 85 QRS 75 QT 411 T 89 QTc 419 Conclusion SINUS RHYTHM WITH SINUS ARRHYTHMIA NORMAL ECG UNCONFIRMED REPORT Electronically signed by : Vikram Mari, 04/28/2025 15:40:14
--- NOTE | 2025-04-28 08:39 | XR_ITS ---
FINAL REPORT CLINICAL HISTORY: Shortness of breath, left sided chest pain since 8 am COMPARISON: none FINDINGS: A single frontal view of the chest was obtained. No acute pulmonary opacity is present. There is no evidence of effusion or pneumothorax. Mediastinum is unremarkable. Heart size is normal. IMPRESSION: No acute abnormality. Reviewed, Interpreted and Dictated by Steven Mclain MD Transcribed by Christiana Kulkarni Authenticated and [facility]
--- NOTE | 2025-04-28 08:40 | [facility]H.EDCP ---
Discharge Plan Disposition Patient Disposition: Home, Self-Care Prescriptions Prescriptions: No Action cetirizine 10 mg tablet 10 mg PO DAILY acetaminophen 500 mg tablet 500 mg PO Q6H PRN (Reason: Pain) meclizine 25 mg tablet 25 mg PO TID nitroglycerin 0.4 mg tablet, sublingual 0.4 mg sublingual Q5M PRN (Reason: Chest Pain) Rx Instructions: do not exceed 3 doses per episode rosuvastatin 40 mg tablet 40 mg PO DAILY buspirone 5 mg tablet 5 mg PO BID cyanocobalamin (vitamin B-12) 1,000 mcg/mL solution 1,000 mcg IM QMONTH Aplisol 5 tub. unit /0.1 mL solution intradermal nystatin [Nyamyc] 100,000 unit/gram powder 100,000 unit topical BID bupropion HCl 150 mg tablet extended release 24 hr 150 mg PO ONCE ondansetron 4 mg tablet,disintegrating 4 mg PO DAILY PRN (Reason: Nausea) potassium chloride 20 mEq tablet extended release 20 meq PO DAILY rivastigmine tartrate 1.5 mg capsule 1.5 mg PO BID Qty: 60 7RF aspirin [Adult Low Dose Aspirin] 81 mg tablet,delayed release (DR/EC) 81 mg PO DAILY carbidopa-levodopa 25-100 mg tablet extended release 1 tab PO TID Qty: 90 4RF metoprolol tartrate 25 MG tablet 25 mg PO BID albuterol sulfate 90 mcg/actuation HFA aerosol inhaler 2 puff INHALATION Q4HP PRN (Reason: Wheezing) Patient Comments: INHALE 2 PUFFS BY MOUTH INTO THE LUNGS EVERY 4 HOURS NEEDED FOR WHEEZING tramadol 50 mg tablet 50 mg PO TID PRN (Reason: pain) Qty: 60 0RF omeprazole 40 mg capsule,delayed release(DR/EC) 20 mg PO DAILY amlodipine 2.5 MG tablet 2.5 mg PO DAILY Referrals Follow up/Referrals: Timoteo Dillon MD [Staff Physician, Cardiology] - See instructions Activity Restrictions/Add. Instructions Additional Instructions/Restrictions: No evidence of an acute cardiopulmonary emergency please follow-up outpatient closely with Dr. Dillon return with any significant worsening or recurrence of your symptoms. Clinical Impressions Clinical Impression: Chest pain Print Language Print Language: Monegasque Discharge ED Provider: Janine Mari [facility] General Chief Complaint: Chest Pain Stated Complaint: chest pain Time Seen by Provider: 04/28/25 08:35 History of Present Illness HPI narrative: Patient is a 79-year-old [facility] presented with chest pain. Chest pain started just prior to arrival she states that he was she was in her normal state of health was going to the cafeteria and she all of a sudden began to have chest discomfort and she said the pain was migratory both sides of her chest right and left no exertional component no nausea vomiting diaphoresis etc. She asked for nitroglycerin. Symptoms have since resolved. Unclear as to whether or not the nitroglycerin caused her pain to improve. She is without symptoms other than feeling fatigued which she states is her baseline now. Related Data Home Medications ?Medication ?Instructions ?Recorded ?Confirmed aspirin 81 mg tablet,delayed 81 mg PO DAILY HEART HEALTH 01/12/18 04/28/25 release (Adult Low Dose Aspirin) amlodipine 2.5 mg tablet 2.5 mg PO DAILY Hypertension 03/16/18 04/28/25 metoprolol tartrate 25 mg tablet 25 mg PO BID Hypertension 09/16/19 04/28/25 albuterol sulfate 90 mcg/actuation 2 puff inhalation Q4HP PRN Wheezing 11/09/22 04/28/25 aerosol inhaler acetaminophen 500 mg tablet 500 mg PO Q6H PRN Pain 08/02/24 04/28/25 buspirone 5 mg tablet 5 mg PO BID 08/02/24 04/28/25 cetirizine 10 mg tablet 10 mg PO DAILY 08/02/24 04/28/25 cyanocobalamin (vitamin B-12) 1,000 mcg IM QMONTH 08/02/24 04/28/25 1,000 mcg/mL injection solution meclizine 25 mg tablet 25 mg PO TID 08/02/24 04/28/25 nitroglycerin 0.4 mg sublingual 0.4 mg sublingual Q5M PRN Chest 08/02/24 04/28/25 tablet Pain nystatin 100,000 unit/gram topical 100,000 unit topical BID 08/02/24 04/28/25 powder (Nyamyc) rosuvastatin 40 mg tablet 40 mg PO DAILY 08/02/24 04/28/25 tuberculin PPD 5 tub. unit/0.1 mL intradermal 08/02/24 03/21/25 intradermal injection solution (Aplisol) bupropion HCl 150 mg 24 hr tablet, 150 mg PO ONCE 09/13/24 04/28/25 extended release omeprazole 40 mg capsule,delayed 20 mg PO DAILY GERD 09/13/24 04/28/25 release ondansetron 4 mg disintegrating 4 mg PO DAILY PRN Nausea 03/21/25 04/28/25 tablet potassium chloride 20 mEq 20 meq PO DAILY 03/21/25 04/28/25 tablet,extended release Previous Rx's ?Medication ?Instructions ?Recorded tramadol 50 mg tablet 50 mg PO TID PRN pain #60 tabs 11/09/22 carbidopa ER 25 mg-levodopa 100 mg 1 tab PO TID #90 tabs 12/06/24 tablet,extended release rivastigmine tartrate 1.5 mg 1.5 mg PO BID Memory loss #60 caps 03/21/25 capsule Allergies Allergy/AdvReac Type Severity Reaction Status Date / Time cephalexin (From Keflex) Allergy Intermediate Other Verified 03/21/25 15:56 erythromycin base (From Allergy Intermediate Other Verified 03/21/25 15:56 Erythrocin) Sulfa (Sulfonamide Allergy Intermediate Other Verified 03/21/25 15:56 Antibiotics) oxycodone (From Percocet) Allergy Mild Other Verified 03/21/25 15:56 acetaminophen (From Percocet) Allergy Other Verified 03/21/25 15:56 [facility] Disclaimer: The information contained in this section may have been updated after the patient was seen, as this information can be updated by other users. Medical History History of ulcer disease History of gastroesophageal reflux (GERD) History of depression History of dementia History of CVA (cerebrovascular accident) History of COPD History of asthma History of cardiac arrhythmia History of anxiety HTN (hypertension) HLD (hyperlipidemia) CAD (coronary artery disease) Chest pain Sciatica Surgical History History of cholecystectomy History of hysterectomy History of left hip replacement History of coronary artery stent placement Family History Other Cancer Coronary artery disease Diabetes Hyperlipidemia Polio Social History Smoking Status: Never smoker alcohol intake: never substance use type: denies use current occupational status: retired Travel in the last 8 weeks?: None household members: none marital status: caffeine: Yes Have you lived/traveled outside [place] in past 30 days?: No Contact w/someone who lives/traveled outside US past 30 days?: No Exposure to someone with infectious disease in past 14 days?: No Do you have a fever (greater than 100.4 F or 38 C)?: No Have you tested positive for COVID-19?: No Exposed to someone with COVID-19 in past 14 days?: No Do you have a sore throat?: No Do you have a cough?: No Do you have any weakness?: No Do you have any diarrhea?: No Are you experiencing any unusual bleeding?: No Do you have any muscle aches/pain?: No Do you have any abdominal pain?: No Are you experiencing loss of taste or smell?: No Other Medical History Have you received the Flu Vaccine for this season: No Have you received the Pneumonia Vaccine: Yes ROS Obtained: Yes All systems reviewed & no additional complaints except as documented Physical Exam General General appearance: alert Respiratory Respiratory exam: Present normal lung sounds bilaterally; Absent respiratory distress Cardiovascular Cardiovascular exam: Present regular rate and normal rhythm Neurological Exam Neurological exam: Present alert and oriented X3 HEART Score HEART Score HEART Score assessment performed?: Yes History (anamnesis): Slightly suspicious ECG: Non-specific disturbance Age: >65 years Risk factors: Atherosclerosis history Troponin: </= normal limit HEART Score: 5 Critical Care Critical Care Time Critical Care Time: No Medical Decision Making Cj Inquiry Pt receiving controlled substance: No Vital Signs Vital Signs: 04/28/25 08:30 04/28/25 08:31 04/28/25 08:47 Temperature 98.5 F Temperature Source Oral Pulse Rate 79 63 Pulse Rate [Left Radial] 66 Respiratory Rate 17 Blood Pressure 105/72 L Blood Pressure [Right Arm] 105/72 L Blood Pressure Mean [Right Arm] 83 Blood Pressure Source [Right Arm] Automatic Cuff Blood Pressure Position [Right Arm] Sitting 02 Sat by Pulse Oximetry 90 L 98 Oxygen Delivery Method Room Air Room Air 04/28/25 09:00 04/28/25 09:30 04/28/25 10:00 Temperature Temperature Source Pulse Rate Pulse Rate [Left Radial] Respiratory Rate 17 14 11 L Blood Pressure 100/61 L 97/62 L 111/75 Blood Pressure [Right Arm] Blood Pressure Mean [Right Arm] Blood Pressure Source [Right Arm] Blood Pressure Position [Right Arm] 02 Sat by Pulse Oximetry Oxygen Delivery Method 04/28/25 10:45 04/28/25 11:00 04/28/25 11:30 Temperature Temperature Source Pulse Rate 57 L 59 L 63 Pulse Rate [Left Radial] Respiratory Rate 17 20 17 Blood Pressure 109/74 L 105/69 L 100/69 L Blood Pressure [Right Arm] Blood Pressure Mean [Right Arm] Blood Pressure Source [Right Arm] Blood Pressure Position [Right Arm] 02 Sat by Pulse Oximetry 95 95 95 Oxygen Delivery Method Room Air Room Air Lab Data Lab results reviewed: Yes I reviewed the patient's lab results. Labs: Lab Results 04/28/25 08:20: WBC 6.0, RBC 3.98 L, Hgb 12.6, Hct 39.6, MCV 99.5 H, MCH 31.7 H, MCHC 31.8, RDW 12.5, Plt Count 151, MPV 11.9 H, Neut % (Auto) 53.9, Lymph % (Auto) 33.9, Graves % (Auto) 9.4 H, Eos % (Auto) 2.2, Baso % (Auto) 0.3, Neut # (Auto) 3.3, Lymph # (Auto) 2.1, Graves # (Auto) 0.6, Eos # (Auto) 0.1, Baso # (Auto) 0.0, D-Dimer 0.55 H, Sodium 138, Potassium 4.0, Chloride 104, Carbon Dioxide 30, Anion Gap 8.0, BUN 16, Creatinine 0.80, Estimated Creat Clear 60, Estimated GFR 70, Est GFR ( Amer) 84, Glucose 106 H, Calcium 8.9, Total Bilirubin 0.3, AST 23, ALT 6 L, Alkaline Phosphatase 102, Troponin I < 0.01, Total Protein 7.4, Albumin 3.9, Globulin 3.5 H, Albumin/Globulin Ratio 1.1, Lipase 47 04/28/25 11:09: Troponin I < 0.01 04/28/25 08:20 04/28/25 08:20 Response Orders (Tests/Meds): ED MEDICATIONS Discontinued Medications Generic Name Dose Route Start Last Admin Trade Name Freq PRN Reason Stop Dose Admin Aspirin 324 mg 04/28/25 08:39 04/28/25 08:46 Aspirin 81mg Chewable Tablet PO 04/28/25 08:40 324 mg ONCE ONE Administration ORDERS Category Date Time Status CXR --portable [XR chest portable] Stat Exams 04/28/25 08:39 Completed CBC w/Auto Diff [Complete Blood Count Auto Diff] Stat Lab 04/28/25 08:20 Completed CMP [Comprehensive Metabolic Panel] Stat Lab 04/28/25 08:20 Completed D-Dimer Stat Lab 04/28/25 08:20 Completed Lipase Stat Lab 04/28/25 08:20 Completed Trop I [Troponin I] Stat Lab 04/28/25 08:20 Completed Troponin I Q3H Lab 04/28/25 11:09 Completed Troponin I Q3H Lab 04/28/25 14:45 Ordered ECG Data Tracing #1: Attestation: I reviewed this ECG and interpreted as documented below: ECG Narrative: Ventricular rate of 63 normal sinus rhythm normal axis no acute ischemic changes noted no significant conduction abnormalities MDM Narrative Medical Decision Narrative: 79-year-old with above history and physical she has a heart score of 5 she is very well-appearing at the moment EKG is nonischemic will get serial troponins to rule out acute coronary syndrome and placed the patient in ED observation status. She did present with an oxygen saturation of 90% and is not a great historian we will obtain a D-dimer and use years criteria to rule out PE. Aspirin has been administered. If her workup is negative I will feel comfortable with her following up closely outpatient with her card writer hand. Reassessment 1213 after several hours of observation serial troponins are negative chest x-ray was performed which I personally interpreted shows no evidence of any acute cardiopulmonary emergency labs otherwise unremarkable patient remains asymptomatic and stable for outpatient follow-up discharged in [facility] with return precautions emphasized.
[2025-04-28 08:44] LABS: Hematocrit 39.6 % (37.0-47.0); Hemoglobin 12.6 g/dL (12.2-16.2); Immature Granulocytes % 0.3 %; Mean Corpuscular HGB Conc 31.8 g/dL (31.8-35.4); Mean Corpuscular Hemoglobin 31.7 pg (27.0-31.2); Mean Corpuscular Volume 99.5 fl (81-99); Nucleated Red Blood Cells % 0 %; Platelet Count 151 K/mm3 (142-424); Red Blood Count 3.98 M/mm3 (4.20-5.40); Red Cell Distribution Width-SD 46.2 fL; White Blood Count 6.0 K/mm3 (4.8-10.8)
[2025-04-28] MEDS: ASPIRIN 81MG CHEWABLE TABLET 324 MG PO (08:46)
[2025-04-28 08:47] LABS: Albumin Level 3.9 g/dl (3.5-5.0); Chloride 104 mmol/L (98-107); Sodium 138 mmol/L (136-145)
[2025-04-28 08:48] LABS: Potassium 4.0 mmoL/L (3.5-5.1)
[2025-04-28 08:50] LABS: Alanine Aminotransferase 6 U/L (12-78); Albumin/Globulin Ratio 1.1 (1.1-1.8); Alkaline Phosphatase 102 U/L (38-126); Anion Gap 8.0 mEq/L (5-15); Aspartate Amino Transferase 23 U/L (14-36); Bilirubin,Total 0.3 mg/dl (0.2-1.3); Blood Urea Nitrogen 16 mg/dl (7-17); Carbon Dioxide 30 mmol/L (22.0-30.0); Creatinine Clearance Estimated 60 mL/min (50-200); Creatinine,Serum 0.80 mg/dl (0.52-1.04); Estimated Glomerular Filt Rate 70 ml/min (>60); GFR (African American) 84 ML/MIN (>60); Globulin 3.5 g/dL (1.3-3.2); Lipase 47 U/L (23-300); Total Protein,Serum 7.4 g/dl (6.3-8.2)
[2025-04-28 08:51] LABS: Calcium 8.9 mg/dl (8.4-10.2); Glucose 106 mg/dl (74-100)
[2025-04-28 09:08] LABS: Troponin I < 0.01 ng/ml (0.00-0.034)
--- NOTE | 2025-04-28 10:05 | PC.NURSE ---
call received from lab, d dimer machine is down. approx 30min - 1hr until machine may be up and running. notified
--- NOTE | 2025-04-28 10:50 | PC.NURSE ---
call made to lab about sandi iraheta, machine just finished its QC, and blood will be put on to run test
[2025-04-28 11:01] LABS: D-Dimer 0.55 ug/mL (0.0-0.5)
[2025-04-28 11:39] LABS: Troponin I < 0.01 ng/ml (0.00-0.034)
--- NOTE | 2025-04-28 12:30 | PC.NURSE ---
call made to case management for assistance with pt transport home.
--- NOTE | 2025-04-28 12:33 | SW/DCPLANNER ---
I have arranged [facility] services for this patient to transport back to [place] from the ED.
--- NOTE | 2025-04-28 12:45 | PC.NURSE ---
attempt to call kem mims to give report x2, no answer from nurses station
--- NOTE | 2025-04-28 13:52 | PC.NURSE ---
Jacy REID called from [place] with f/u questions. I gave her a full report of the pts stay.
== END 2025-04-28 13:02 | disposition home or self-care (01) ==
PROVIDERS: Emergency Provider Student in an Organized Health Care Education/Training Program; PCP Family Medicine
DX: R07.9 Chest pain, unspecified (principal); I10 Essential (primary) hypertension; E78.5 Hyperlipidemia, unspecified; Z86.79 Personal history of other diseases of the circulatory system; Z95.5 Presence of coronary angioplasty implant and graft
CPT/HCPCS: 71045; 80053; 83690; 84484; 85025; 85378; 93005; 99285

== ENCOUNTER 2025-06-22 12:46 | Outpatient (CLI) | payer MEDICARE, SELFPAY ==
--- NOTE | 2025-06-22 | CA_ITS ---
APPROVED REPORT Exam: Pharmacologic Technologist: Jessica Hall Ht: 5 ft 5 in Wt: 178 lbs BSA: 1.88 m2 HR: 68 bpm BP: 119/62 mmHg Indications: Chest Pain Medical History Medical History: HTN, Hyperlipidemia Cardiac Risk Factors: HTN, Hyperlipidemia, FHX of CAD Stress Test Details Test: Lexiscan HR Resting HR: 68 bpm Max Heart Rate (APMHR): 142.253668 bpm Target HR (85% APMHR): 120.817679 bpm Recovery HR: 77 bpm BP Resting BP: 119.0/62.0 mmHg Max BP: 119.0/62.0 mmHg Recovery BP: 109.0/58.0 mmHg ECG Stress ECG Conclusion Patient has nausea through out test EKG nondiagnostic - Briana Electronically signed by : Aletha Dwyer MD 06/23/2025 13:36:53
--- NOTE | 2025-06-22 12:30 | NM_ITS ---
APPROVED REPORT Exam: Nuclear Stress Test Indication: Chest pain, Fatigue, HTN, HIgh cholesterol, Family history, CAD, Hx of [place] Patient Location: Outpatient Stress Tech: Jessica Hall [place] Tech:Felicitas Gutierres ALBAROMark RT(R)(N) Ht: 5 ft 5 in Wt: 178 lbs Bra Size: 38C HR: 68 bpm BP: 119/62 mmHg BSA: 1.88 m2 TID: 1.78 BMI: 29.6 History: Chest pain, Fatigue, HTN, HIgh cholesterol, Family history, CAD, Hx of [place] Procedure: Patient received 0.4 mg of intravenous Lexiscan, resting heart rate 68 bpm, resting blood pressure 119/62 mmHg, with Lexiscan maximum heart rate achieved was 81 bpm which is % of the maximum predicted heart rate and blood pressure was 113/52 mmHg. With Lexiscan, patient denied any complaint of chest pain. Cardiac Stress and Resting SPECT Images: Cardiac Stress and Resting SPECT images were obtained using technetium 99m Myoview 31.3 mCi stress and 10.09 mCi at rest. The patient could not lie on her abdomen. Therefore, prone stress imaging could not be performed. This may affect the diagnostic interpretation of the study findings. Resting and stress imaging in supine positions demonstrate no evidence of fixed or reversible perfusion defects. There is increase in transient ischemic dilatation ratio (TID 1.78), which may be suggestive of possible multivessel disease or balanced ischemia. Gated imaging demonstrates normal global and regional LV systolic function. LVEF is calculated at 58%. Conclusion: No evidence of fixed or reversible perfusion defects. There is increase in transient ischemic dilatation ratio (TID 1.78), which may be suggestive of possible multivessel disease or balanced ischemia. Gated imaging demonstrates normal global and regional LV systolic function. LVEF is calculated at 58%. Electronically signed by : Aletha Dwyer MD 06/23/2025 13:35:09
--- OUTSIDE RECORDS SUMMARY | 2025-06-22 12:56 | XMS_ITS | Clinical Summary ---
Author Organization [facility] Address [address] [place] [address] Phone Care Team Providers Care Manufacturing Operations Manager Name Role Phone Chani Drew MD Unavailable [phone] Allergies Active Allergy Reactions Criticality Noted Date Comments Erythromycin Iron Cephalexin Oxycodone-Acetaminophen 06/19/2011 Sulfa (Sulfonamide Antibiotics) Medications aspirin 81 mg tabletIndication s:HTN (hypertension),S /P PTCA (percutaneous transluminal coronary angioplasty),Tob acco abuse,Hyperlipem ia Take 81 mg by mouth daily. Active amLODIPine (NORVASC) 2.5 mg Oral TabletIndication s:Essential hypertension Take 1 Tablet by mouth daily. 90 Tablet 2 06/27/20 22 Active omeprazole (PRILOSEC) 40 mg Oral Capsule, Delayed Release(E.C.) Take 1 Capsule by mouth daily. 90 Capsule 2 06/27/20 22 Active escitalopram oxalate (LEXAPRO) 20 mg Oral TabletIndication s:BHAKTI (generalized anxiety disorder) Take 1 Tablet by mouth daily. 90 Tablet 2 06/27/20 22 Active nitroGLYCERIN (NITROSTAT) 0.4 mg SL Tablet, SublingualIndica tions:Anginal pain Place 1 Tablet under the tongue every 5 minutes as needed for Chest pain. As directed for chest pain 25 Tablet 5 07/18/19 23 Active albuterol (PROVENTIL HFA;VENTOLIN HFA) 90 mcg/actuation Inhl HFA Aerosol Inhaler Inhale 2 Puffs into the lungs every 4 hours as needed for Wheezing. 1 Each 11 09/04/19 23 Active diclofenac (VOLTAREN) 75 mg Oral Tablet, Delayed Release (E.C.) Take 1 Tablet by mouth 2 times daily as needed. for pain. take with food 180 Tablet 2 09/04/19 23 Active simvastatin (ZOCOR) 40 mg Oral TabletIndication s:Coronary artery disease involving [place] heart without angina pectoris, unspecified vessel or lesion type Take 1 Tablet by mouth nightly. 90 Tablet 2 09/04/19 23 Active metoprolol (LOPRESSOR) 25 mg Oral TabletIndication s:Coronary artery disease involving [place] heart without angina pectoris, unspecified vessel or lesion type Take 1 Tablet by mouth 2 times daily. 180 Tablet 2 09/04/19 23 Active tiZANidine (ZANAFLEX) 2 mg Oral TabletIndication s:DDD (degenerative disc disease), lumbosacral Take 1 Tablet by mouth nightly. 90 Tablet 3 09/27/19 23 Active linaCLOtide (LINZESS) 145 mcg Oral Capsule Take 145 mcg by mouth before breakfast. Active loperamide (IMODIUM) 2 mg Oral Capsule Take 2 mg by mouth 2 times daily. Active cetirizine (ZYRTEC) 10 mg Oral TabletIndication s:Nasal congestion Take 1 Tablet by mouth daily. 90 Tablet 2 12/21/19 23 Active docusate sodium (COLACE) 50 mg Oral Capsule Take 50 mg by mouth 2 times daily. Active mupirocin (BACTROBAN) 2 % Top Ointment Apply topically 3 times daily. 15 g 12/21/19 23 Active fUROsemide (LASIX) 40 mg Oral TabletIndication s:Peripheral edema TAKE 1 TABLET BY MOUTH DAILY NEEDED 90 Tablet 03/20/20 23 Active Syringe with Needle, Disp, 3 mL 22 gauge x 1 Misc SyringeIndicatio ns:B12 deficiency Use to inject 1 ML of cyanocobalamin into the muscle once every 30 days 3 Each 3 04/02/20 23 Active ARIPiprazole (ABILIFY) 5 mg Oral TabletIndication s:Hallucinations ,Memory disturbance Take 1 Tablet by mouth daily. 30 Tablet 3 04/15/20 23 Active meclizine (ANTIVERT) 25 mg Oral Tablet Take 1 Tablet by mouth 3 times daily as needed. for dizziness 90 Tablet 3 04/22/20 23 Active terbinafine HCL (LAMISIL) 250 mg Oral Tablet Take 1 Tablet by mouth daily. 42 Tablet 04/22/20 23 Active traMADoL (ULTRAM) 50 mg Oral Tablet Take 1 Tablet by mouth every 6 hours as needed for Pain. 20 Tablet 07/09/19 24 Active cyanocobalamin, vitamin B-12, 1,000 mcg/mL Inj KitIndications:O ther dietary vitamin B12 deficiency anemia Inject 1 mL as directed every 30 days. 1 Kit 11 07/09/19 24 Active Active Problems Patient Care Coordination No te Formatting of this note migh t be different from the original. Utilization audit completed by Catrachita Caldwell RN on 12/24/2022. 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 04/15/2023 Abnormal finding on MRI of brain 04/15/2023 B12 deficiency 04/15/2023 Thrombocytopenia 03/03/2023 Ascending aorta dilation 12/18/2022 Overview (12/18/2022): Per echo 09/09/22 Positive colorectal cancer screening using Colog uard test 07/11/2022 Overview (07/11/2022): Added automatically from request for surgery [id number] DDD (degenerative disc disease), lumbosacral 08/2015 History of colonic diverticulitis 10/26/2014 History of colon polyps 10/26/2014 GERD (gastroesophageal reflux disease) 5 Hyperglycemia 01/31/2014 BHAKTI (generalized anxiety disorder) 10/26/2013 Osteoporosis 09/29/2013 Colon polyps 09/13/2013 ASHD (arteriosclerotic heart disease) 09/13/2013 Urinary incontinence 09/13/2013 S/P PTCA (percutaneous transluminal coronary ang ioplasty) 06/19/2011 Overview (06/19/2011): STENT TO THE RCA 03/28/2010 W/ MULTI-LINK BARE METAL STENT Tobacco abuse 06/19/2011 HTN (hypertension) 06/19/2011 Hyperlipemia 06/19/2011 Immunizations Immunization Administration Dates Next Due Hepatitis A, Ped/Adol, 2 Dose 11/06/2017 Influenza High Dose 04/07/2019 Influenza Vaccine, Unspecified Formulation 03/06 Moderna SARS-CoV-2 Booster V accine 18+ Yrs (Light Blue Border) 10/01/2021 Pneumococcal Conjugate Vaccine 13 Valent 017 Pneumococcal Polysaccharide 23 Valent 09/29/2013 Quadrivalent Influenza High Dose 04/15/2023,03/07 Surgical History Surgery Date Site/Laterality Comments HYSTERECTOMY 07/06/1972 PARTIAL CHOLECYSTECTOMY 07/06/1987 CORONARY ANGIOPLASTY 03/28/2010 PTCA/stent with Multi-Link 3.0 X15 to RCA. BREAST SURGERY 07/06/1978 12 KNOTS REMOVED BILATERAL BREAST POLYPECTOMY 07/06/1999 colon-benign CATARACT REMOVAL 07/13/2012 Right RIGHT EYE CATARACT EXTRACTION WITH PHACOEMULSIFICATION AND INTRAOCULAR LENS; Surgeon: Gildardo Rodríguez MD; Location: [facility]; Service: Ophthalmology Medical devices from this surgery are in the Medical Devices section. CAROTID STENT 03/28/2010 RCA, in maker Medical History Medical History Date Comments Hyperlipidemia Hypertension Tobacco abuse CAD (coronary artery disease) 03/28/10 PT CA/stent with 3.0 X 15 Mulit-Link bare metal stent Hiatal hernia Family History Medical History Relation Name Comments High Cholesterol Daughter Cancer Father throat Heart Disease Father valve replacem ent Cancer Other niece breast Cancer Paternal Aunt breast High Blood Pressure Son Diabetes Neg Hx Stroke Neg Hx Relation Name Status Comments Daughter Father Maternal Grandfather Maternal Grandmother Other niece Alive Paternal Aunt Paternal Grandfather Paternal Grandmother Son Social History Tobacco Use Types Packs/Day Years Used Date Smoking Tobacco: Every Day Cigarettes Smokeless Tobacco: Never Tobacco Cessation:Ready to Q uit: Not Asked; Counseling Given: Not Answered Alcohol Use Standard Drinks/Week Comments Yes 0 (1 standard drink = 0.6 oz pur e alcohol) 2 drinks per year AUDIT-C Answer Date Recorded Q1: How often do you have a drink containing alc ohol? Monthly or less 10/19/2020 Q2: How many drinks containi ng alcohol do you have on a typical day when you are drinking? 1 or 2 10/19/2020 Frequency of Binge Drinking Not on file 10/04 Overall Financial Resource Strain (CARDIA) Answe r Date Recorded How hard is it for you to pa y for the very basics like food, housing, medical care, and heating? Not hard at all 08/13/2023 PHQ-2 Answer Date Recorded PHQ-2 Total Score 0 12/20/2022 [facility] of Occupat ional Health - Occupational Stress Questionnaire Answer Date Recorded Do you feel stress - tense, restless, nervous, or anxious, or unable to sleep at night because your mind is troubled all the time - these days? Only a little 08/13/2023 Exercise Vital Sign Answer Date Recorde d On average, how many days pe r week do you engage in moderate to strenuous exercise (like a brisk walk)? 0 days 08/13/2023 On average, how many minutes do you engage in exercise at this level? 0 min 08/13/2023 Hunger Vital Sign Answer Date Recorded Within the past 12 months, y ou worried that your food would run out before you got the money to buy more. Never true 08/13/19 24 Within the past 12 months, t he food you bought just didn't last and you didn't have money to get more. Never true 08/13/2023 PRAPARE - Transportation Answer Date Re corded In the past 12 months, has l ack of transportation kept you from medical appointments or from getting medications? No 02/2024 In the past 12 months, has l ack of transportation kept you from meetings, work, or from getting things needed for daily living? No 08/13/2023 Housing Stability Vital Sign Answer Josh e Recorded In the last 12 months, was t here a time when you were not able to pay the mortgage or rent on time? No 08/13/2023 In the last 12 months, how many places have you lived? 1 08/13/2023 In the last 12 months, was t here a time when you did not have a steady place to sleep or slept in a prison (including now)? No 08/13/2023 Housing Stability Vital Sign Answer Josh e Recorded In the last 12 months, was t here a time when you were not able to pay the mortgage or rent on time? No 08/13/2023 Number of Times Moved in the Last Year Not on fi le 08/13/2023 Homeless in the Last Year Not on file 2023 Comments No Sex and Gender Information Value Date Recorded Sex Assigned at Not on file Legal Sex Female 5:10 AM EDT Gender Identity Not on file Sexual Orientation Not on file Last Filed Vital Signs Vital Sign Reading Time Taken Comments Blood Pressure 112/78 04/15/2023 8:50 AM EDT Pulse 54 03/05/2023 11:10 AM EDT Temperature 36.3 C (97.3 F) 04/15/2023 8:50 AM EDT Respiratory Rate 20 05/18/2019 7:55 AM EST Oxygen Saturation 95% 03/05/2023 11:10 AM EDT Inhaled Oxygen Concentration - - Weight 68.5 kg (151 lb) 04/15/2023 8:50 AM EDT Height 167.6 cm (5' 6 ) 04/15/2023 8:50 AM EDT Body Mass Index 24.37 04/15/2023 8:50 AM EDT Plan of Treatment Health Maintenance Due Date Last Done Comments DTaP/TDaP/Td (1 - Tdap) 09/09/1996 09/08/1996 Zoster (1 of 2) 1997 RSV or 60+ (1 - 1-dose 75+ series) 2022 Wellness Exam Medicare 04/15/2024 04/15/2023 COVID-19 Vaccine ( season) 2025 10/01/2021, 04/06/2021, 12/22/2020 Influenza Vaccine (#1) 2025 3, 03/25/2022, 04/06/2021, Additional history exists Bone Density Screening Completed 09/23/2013 Hepatitis C Screening Completed 09/25/2016 Pneumococcal Vaccine 50+ Completed 018, 04/04/2017, 09/25/2016, Additional history exists Cologuard Discontinued 06/04/2022, 06/04/2022 Colon Cancer Screening Discontinued FIT Discontinued 06/24/2022 Colonoscopy Discontinued Hepatitis B Vaccine Aged Out No longe r eligible based on patient's age to complete this topic Meningococcal B Vaccine Aged Out No l onger eligible based on patient's age to complete this topic Sigmoidoscopy Discontinued Virtual Colonography Discontinued Goals Goal Patient Goal Type Associated Problems Recent Progress Patient-Stated? Author Blood Pressure < 140/90 Blood Pressure 112/78(2022 8:50 AM EDT) No Gemma Ann RMA Eat better, exercise, reach an ideal body weight General No Dinah Kennedy RMAsh Stay Tobacco Free Lifestyle No Dinah Kennedy RMAsh HDL > 40 Result Component 44(12/20/2022 11:53 AM EDT) No Gemma Ann RMA HEMOGLOBIN A1C < 7.0 Result Component 5.1( 11:53 AM EDT) No Gemma Ann RMA LDL Direct < 130 Result Component No Gemma Ann RMAsh LDL CALC < 130 Result Component 61(12/20/2022 11:53 AM EDT) No Gemma Ann RMA Weight < 200 lb (90.719 kg) Weight 151 lb (68.5 kg)( 8:50 AM EDT) No Gemma Ann RMA Medical Devices Implanted Type Area Medical Consultant Device Identifier Shelf Expiration Date Model / Serial / Lot Stent Coronary Vision Rx 3.00mm X 15mm - [id number] Implanted:Qty: 1 on 03/28/2010 at [facility]ASC DEV [id number] / / Lens Intraocular 24.5 Diopter Acrysof Iq 13.0mm Length 6.0mm Aspheric Optic 0 Degree Modified-L Haptic - [id number] Implanted:Qty: 1 on 07/13/2012 by Gildardo Rodríguez MD at [facility] Right: Eye [facility]:SURG 11/10/2016 [id number] / [id number] / Procedures Procedure Name Priority Date/Time Associated Diagnosis Comments HM FIT Routine 06/24/2022 COLOGUARD Routine 06/04/2022 1:25 PM EST Screening for colon cancer HCV ANTIBODY SCREEN W/ REFLEX Routine 09/25/2016 11:19 AM EDT Need for hepatitis C screening test DX BONE DENSITY AXIAL SKELETON Routine 09/23/2013 10:26 AM EDT Post-menopausal from Last 3 Months or Most Recently Relevant to Health Maintenance Results * HM FIT (06/24/2022) Impressions SEP OFFICE - 06/24/2022 negative us Historical Provider HEALTH MAINTENANCE Final Res ult SEP OFFICE * (ABNORMAL) COLOGUARD (06/04/2022 1:25 PM EST) COLOGUARD CLINICAL REPORT Positive( A) Negative [facility] Comment: POSITIVE TEST RESULT. A positive Cologuard result should be followed with a colonoscopy or visual examination of the colon. The normal value (reference range) for this assay is negative. TEST DESCRIPTION: Composite algorithmic analysis of stool DNA-biomarkers with hemoglobin immunoassay. Quantitative values of individual biomarkers are not reportable and are not associated with individual biomarker result reference ranges. Cologuard is intended for colorectal cancer screening of adults of either sex, 45 years or older, who are at average-risk for colorectal cancer (CRC). Cologuard has been approved for use by the U.S. FDA. The performance of Cologuard was established in a cross sectional study of average-risk adults aged 50-84. Cologuard performance in patients ages 45 to 49 years was estimated by sub-group analysis of near-age groups. Colonoscopies performed for a positive result may find as the most clinically significant lesion: colorectal cancer [4.0%], advanced adenoma (including sessile serrated polyps greater than or equal to 1cm diameter) [20%] or non- advanced adenoma [31%]; or no colorectal neoplasia [45%]. These estimates are derived from a prospective cross-sectional screening study of 10,000 individuals at average risk for colorectal cancer who were screened with both Cologuard and colonoscopy. (Jim Marks al, N Engl J Med 2014;370(14):8206-7565.) Cologuard may produce a false negative or false positive result (no colorectal cancer or precancerous polyp present at colonoscopy follow up). A negative Cologuard test result does not guarantee the absence of CRC or advanced adenoma (pre-cancer). The current Cologuard screening interval is every 3 years. ([place] [employer] Society and U.S. Multi-Society Task Force). Cologuard performance data in a 10,000 patient pivotal study using colonoscopy as the reference method can be accessed at the following location: www.SavvyCard.ProZyme/results. Additional description of the Cologuard test process, warnings and precautions can be found at www.colCNZZrd.com. Stool 06/04/2022 1:25 PM EST 06/06/2022 4:33 PM EST Michelle Finley MD EXACT SCIENCE - ORDERABLES Fin al Result Performing Organization Address [facility] Co de Phone Number [employer], [employer] [address] [place] [address], [facility] [address] [place] [address] * HEPATITIS C ANTIBODY - SCREENING (09/25/2016 11:19 AM EDT) Hep C Ab Negative Negative [facility] Blood specimen (specimen) 09/25/2016 11:19 AM EDT 09/25/2016 5:06 PM EDT Michelle Finley MD HEMATOLOGY ORDERABLES Final Re sult Performing Organization Address City/[facility] de Phone Number [facility] [address] [place] [address] * DX BONE DENSITY AXIAL SKELETON (09/23/2013 10:26 AM EDT) Anatomical Region Laterality Modality Dexa Scan 09/23/2013 Narrative 09/23/2013 2:49 PM EDT Indication: The patient is a female age 65 or older who requires a bone density assessment. Bone Density: Region BMD T-score Z-score AP Spine (L1, L2, L4) 0.666 -3.3 -1.5 Femoral Neck (Left) 0.679 -1.5 0.0 Total Hip (Left) 0.775 -1.4 -0.1 Femoral Neck (Right) 0.644 -1.8 -0.3 Total Hip (Right) 0.762 -1.5 -0.2 World Health Organization criteria for BMD interpretation classify patients as: Normal (T-score at or above -1.0), Osteopenic (T-score between -1.0 and -2.5), or Osteoporotic (T-score at or below -2.5). T Scores are reported in Postmenopausal women and in men age 50 and older. Z-scores are reported in females prior to menopause and in males younger than age 50. 10-year Fracture Risk: FRAX not reported because: Some T-score at or below -2.5 Prior hip or vertebral fracture Medical History: Have had a previous hip or vertebral fracture Smokes Has secondary osteoporosis Has used the following medications: Diuretic Has the following medical conditions: Back pain, Hip pain Patient maximum height was 66 postmenopausal Interpretation: Bone mineral density is in the osteoporotic range. The spine portion of the study is limited by discordant vertebra. Following ISCD guidelines vertebra with more than 1.0 T-score difference between the vertebra and the adjacent vertebra have been deleted. Reported by: Jamie Piper PA-C, CCD on 09/23/2013 12:54:00 PM. Procedure Note Tiffanie Jones MD - 09/23/2013 Indication: The patient is a female age 65 or older who requires a bone density assessment. Bone Density: Region BMD T-score Z-score AP Spine (L1, L2, L4) 0.666 -3.3 -1.5 Femoral Neck (Left) 0.679 -1.5 0.0 Total Hip (Left) 0.775 -1.4 -0.1 Femoral Neck (Right) 0.644 -1.8 -0.3 Total Hip (Right) 0.762 -1.5 -0.2 World Health Organization criteria for BMD interpretation classify patients as: Normal (T-score at or above -1.0), Osteopenic (T-score between -1.0 and -2.5), or Osteoporotic (T-score at or below -2.5). T Scores are reported in Postmenopausal women and in men age 50 and older. Z-scores are reported in females prior to menopause and in males youngerthan age 50. 10-year Fracture Risk: FRAX not reported because: Some T-score at or below -2.5 Prior hip or vertebral fracture Medical History: Have had a previous hip or vertebral fracture Smokes Has secondary osteoporosis Has used the following medications: Diuretic Has the following medical conditions: Back pain, Hip pain Patient maximum height was 66 postmenopausal Interpretation: Bone mineral density is in the osteoporotic range. The spine portion of the study is limited by discordant vertebra.Following ISCD guidelines vertebra with more than 1.0 T-score difference between the vertebra and the adjacent vertebra have been deleted. Reported by: Jamie Piper PA-C, CCD on 09/23/2013 12:54:00 PM. Michelle Finley MD IMG DEXA ORDERABLES Final Resu lt from Last 3 Months or Most Recently Relevant to Health Maintenance Insurance MEDICARE PPO MR MEDICARE PPO MR Care Teams Manufacturing Operations Manager Relationship Specialty Start Date End Date Chani Drew MD [address] [place] [address] Internal Medicine-Cardiovascular Disease 10/31/14
--- OUTSIDE RECORDS SUMMARY | 2025-06-22 12:56 | XMS_ITS | Clinical Summary ---
Author Organization [facility] Address [address] [place] [address] Care Team Providers Care Head Of Acquisitions Name Role Phone Michelle Finley MD Primary Care Provider [phone] Allergies Active Allergy Reactions Criticality Noted Date Comments Cephalexin Unknown - Patient st ates they do not know rxn details Low 08/15/2023 Erythromycin Unknown - Patient st ates they do not know rxn details Low 08/15/2023 Iron Unknown - Patient st ates they do not know rxn details Low 08/15/2023 Sulfa Drugs Unknown - Patient st ates they do not know rxn details Low 08/15/2023 Medications nitroglycerin (Nitrostat) 0.4 MG SL tablet 05/21/2023 Active cyanocobalamin (Vitamin B-12) 1000 MCG/ML injection Inject 1 mL (1,000 mcg) under the skin every 30 (thirty) days. Active traMADol (Ultram) 50 MG tablet Take 1 tablet (50 mg) by mouth every 6 (six) hours if needed for moderate pain. Active omeprazole (PriLOSEC) [address] capsule Take 1 capsule (40 mg) by mouth 1 (one) time each day. Do not crush or chew. Active amLODIPine (Norvasc) 2.5 MG tablet Take 1 tablet (2.5 mg) by mouth 1 (one) time each day. Active metoprolol tartrate (Lopressor) 25 MG tablet Take 1 tablet (25 mg) by mouth 2 (two) times a day. Active meclizine (Antivert) 25 MG tablet Take 1 tablet (25 mg) by mouth 3 (three) times a day if needed for dizziness. Active ARIPiprazole (Abilify) 5 MG tablet Take 1 tablet (5 mg) by mouth 1 (one) time each day. Active furosemide (Lasix) 40 MG tablet Take 1 tablet (40 mg) by mouth if needed. Edema Active linaCLOtide (Linzess) 145 MCG capsule Take 1 capsule (145 mcg) by mouth 1 (one) time each day. Active loperamide (Imodium) 2 MG capsule Take 1 capsule (2 mg) by mouth 2 (two) times a day if needed for diarrhea. Active cetirizine (ZyrTEC) 10 MG tablet Take 1 tablet (10 mg) by mouth 1 (one) time each day. Active docusate sodium (Colace) 50 MG capsule Take 1 capsule (50 mg) by mouth 2 (two) times a day. Active tiZANidine (Zanaflex) 2 MG tablet Take 1 tablet (2 mg) by mouth every night. Active albuterol 108 (90 Base) MCG/ACT inhaler Inhale 2 puffs every 4 (four) hours if needed for wheezing. Active diclofenac (Voltaren) 75 MG EC tablet Take 1 tablet (75 mg) by mouth 2 (two) times a day if needed. Do not crush, chew, or split. Active simvastatin (Zocor) 40 MG tablet Take 1 tablet (40 mg) by mouth every night. Active escitalopram (Lexapro) 20 MG tablet Take 1 tablet (20 mg) by mouth 1 (one) time each day. Active aspirin 81 MG EC tablet Take 1 tablet (81 mg) by mouth 1 (one) time each day. Active methocarbamol (Robaxin) 500 MG tablet Take 1 tablet (500 mg) by mouth 4 (four) times a day for 14 days. 56 tablet 08/19/2023 Active Active Problems Problem Noted Date Diagnosed Date HTN (hypertension) 08/17/2023 Overview (08/17/2023): Resume home amlodipine 2.5 mg, metoprolol 25 mg twice daily Patient has p.r.n. Lasix Hyperlipidemia 08/17/2023 Overview (08/17/2023): Resume home rosuvastatin 40 mg nightly Constipation 08/17/2023 Overview (08/17/2023): Resume home Linzess prior to breakfast Urinary retention 08/16/2023 Overview (08/16/2023): Hernandez removed;voiding trial Monitor Urine output Pelvic fracture 08/15/2023 Overview (08/16/2023): Inferior pubic rami Left superior puboacetabular fracture Sacral left periarticular fracture ORF consulted WBAT T12 compression fracture 08/15/2023 Overview (08/16/2023): Ortho spine consulted No precautions needed Pain control Neuro/vascular checks F/U outpatient pending upright films Mood disorder 08/15/2023 Overview (08/15/2023): Restart home abilify CHF (congestive heart failure) 08/15/2023 Overview (08/15/2023): Restart home meds as appropriate Vertigo 08/15/2023 Overview (08/15/2023): Takes meclazine at home CAD (coronary artery disease) 08/15/2023 Overview (08/15/2023): H/o PCI many years ago, no AC currently L1 vertebral fracture 08/15/2023 Overview (08/15/2023): minimally displaced right transverse process fracture of L1. [facility] Resolved Problems Problem Noted Date Diagnosed Date Resolved Date Fall, initial encounter 08/15/2023 09/2 07/2024 Overview (08/15/2023): -Admit to SGT 2 -Tertiary 08/16 Immunizations Immunization Administration Dates Next Due Hep A, ped/adol, 2 dose 11/06/2017 Influenza, Unspecified 03/06/2012 Influenza, high-dose, quadrivalent 04/15,03/25/2022,04/06/2021,05/01,04/07/2019,05/13/2018,04/04/2017 Pneumococcal Conjugate PCV 13 04/04/2017, 017 Pneumococcal Polysaccharide PPV23 05/13/2018, TD (adult), 2 Lf tetanus tox oid, preservative free, adsorbed 09/08/1996 Social History Tobacco Use Types Packs/Day Years Used Date Smoking Tobacco: Never Assessed Humiliation, Afraid, Rape, and Kick questionnair e Answer Date Recorded Within the last year, have y ou been afraid of your partner or ex-partner? No 08/17/2023 Within the last year, have y ou been humiliated or emotionally abused in other ways by your partner or ex-partner? No Within the last year, have y ou been kicked, hit, slapped, or otherwise physically hurt by your partner or ex-partner? No 08/17/2023 Within the last year, have y ou been raped or forced to have any kind of sexual activity by your partner or ex-partner? No 08/17/2023 Hunger Vital Sign Answer Date Recorded Within the past 12 months, y ou worried that your food would run out before you got the money to buy more. Sometimes true Within the past 12 months, t he food you bought just didn't last and you didn't have money to get more. Sometimes true 06/2024 PRAPARE - Transportation Answer Date Re corded In the past 12 months, has l ack of transportation kept you from medical appointments or from getting medications? No 08/06 In the past 12 months, has l ack of transportation kept you from meetings, work, or from getting things needed for daily living? No 08/17/2023 Housing Stability Vital Sign Answer Josh e Recorded In the last 12 months, was t here a time when you were not able to pay the mortgage or rent on time? No 08/17/2023 In the last 12 months, how many places have you lived? 1 08/17/2023 In the last 12 months, was t here a time when you did not have a steady place to sleep or slept in a assisted (including now)? No 08/17/2023 Utilities Answer Date Recorded In the past 12 months has th e electric, gas, oil, or water company threatened to shut off services in your home? No 08/17/2023 Comments Unknown Sex and Gender Information Value Date Recorded Sex Assigned at Not on file Legal Sex Female 7:45 PM EDT Gender Identity Not on file Sexual Orientation Not on file Last Filed Vital Signs Vital Sign Reading Time Taken Comments Blood Pressure 130/74 08/19/2023 7:00 AM EST Pulse 69 08/19/2023 7:00 AM EST Temperature 36.8 C (98.2 F) 08/19/2023 7:00 AM EST Respiratory Rate 16 08/19/2023 7:00 AM EST Oxygen Saturation 96% 08/19/2023 7:00 AM EST Inhaled Oxygen Concentration - - Weight 70.6 kg (155 lb 10.3 oz) 08/14/2023 5:42 PM EST Height - - Body Mass Index - - Plan of Treatment Health Maintenance Due Date Last Done Comments [facility]-Depression Screening 1945 [facility]-/Child/Adol SDOH Screenings 1945 [facility]- SDOH Screenings 1965 [facility]-Adult SDOH Screenings 1965 [facility]-DTaP,Tdap,and Td Vaccines (1 - Tdap) 09/09/1996 09/08/1996 [facility]-Zoster Vaccines (1 of 2) 1997 [facility]-Bone Density Scan 09/23/2014 09/23/2013 [facility]-RSV Vaccine: 60+ Years or (1 - 1-dose 75+ series) 2022 [facility]-Medicare Annual Wellness (AWV) 04/15/2024 04/15/2023, 03/25/2022, 05/11/2021, Additional history exists [id number] Vaccine ( season) 2025 10/01/2021, 04/06/2021, 12/22/2020 [facility]-Influenza Vaccine (#1) 03/06/202504/15, 03/25/2022, 04/06/2021, Additional history exists [facility]-Hepatitis C Screening Completed 09/25/2016 [facility]-Hepatitis A Vaccines Aged Out 11/06/2017 No longer eligible based on patient's age to complete this topic [facility]-Pneumococcal Vaccine: 50+ Years Completed 05/13/2018, 04/04/2017, 09/25/2016, Additional history exists HPV Vaccines (No Doses Required) Completed [facility]-HIB Vaccines Aged Out No longer e ligible based on patient's age to complete this topic [facility]-IPV Vaccines Aged Out No longer e ligible based on patient's age to complete this topic [facility]-Rotavirus Vaccines Aged Out No lo nger eligible based on patient's age to complete this topic Insurance [facility] MEDICARE Advance Directives * Full Code (Latest Code Status on File) Date Activated Date Inactivated Comments 08/15/2023 3:17 AM 08/19/2023 1:40 PM Question Answer Comments Patient has decision-making capacity? Yes Care Teams Head Of Acquisitions Relationship Specialty Start Date End Date Michelle Finley MD [address] [place] [address] PCP - General 11/16/20
--- OUTSIDE RECORDS SUMMARY | 2025-06-22 12:56 | XMS_ITS | Encounter Summary ---
Author Organization [place] [place] [address] Care Team Providers Care Slope Hoist Operator Name Role Phone Michelle Finley MD Primary Care Provider [phone] Chani Drew MD Unavailable [phone] Etta Mckee Unavailable Unavailable Julienne Duffy PROGRAMMER ENGINEERING AND SCIENTIFIC Unavailable Unava ilable Reason for Visit * Reason Onset Date Comments Medication Refill 03/02/2020 Amlodipine, Si mvastatin, Metoprolol and Tizanidine Encounter Details Date Type Department Care Team (Late st Contact Info) Description 03/02/2020 Refill [facility] [address] [place] [address] Michelle Finley MD [address] [place], [place] [id number] Medication Refill (Amlodipine, Simvastatin, Metoprolol and Tizanidine) Social History Tobacco Use Types Packs/Day Years Used Date Smoking Tobacco: Every Day Cigarettes Smokeless Tobacco: Never Alcohol Use Standard Drinks/Week Comments Yes 0 (1 standard drink = 0.6 oz pur e alcohol) 2 drinks per year AUDIT-C Answer Date Recorded Frequency of Alcohol Consumption Monthly or less 05/18/2019 Average Number of Drinks 1 or 2 019 Frequency of Binge Drinking Not on file 05/06 PHQ-2 Answer Date Recorded PHQ-2 Score 0 11/25/2018 Comments No Sex and Gender Information Value Date Recorded Sex Assigned at Not on file Legal Sex Female 5:10 AM EDT Gender Identity Not on file Sexual Orientation Not on file documented as of this encounter Functional Status * Is the person deaf or does he/she have serious difficulty hearing? Answer Date of Assessment Author No 10/02/2018 8:47 AM EDT Gemma Ann RMA * Is the person blind or does he/she have serious difficulty seeing even when wearing glasses? Answer Date of Assessment Author No 10/02/2018 8:47 AM EDT Gemma Ann RMA * Does this person have serious difficulty walking or climbing stairs? Answer Date of Assessment Author No 10/02/2018 8:47 AM Gemma Baxter RMA * Does this person have difficulty dressing or bathing? Answer Date of Assessment Author No 10/02/2018 8:47 AM Gemma Baxter RMA * Because of a physical, mental or emotional condition, does this person have difficulty doing errands alone such as visiting a doctor's office or shopping? Answer Date of Assessment Author No 10/02/2018 8:47 AM EDT Gemma Ann RMA documented as of this encounter Mental Status * Because of a physical, mental or emotional condition, does this person have serious difficulty concentrating, remembering or making decisions? Answer Entry Date Author No 10/02/2018 8:47 AM Gemma Baxter RMA documented in this encounter Ordered Prescriptions Prescription Sig Dispense Quantity Refills Last Filled Start Date End Date tiZANidine (ZANAFLEX) 4 mg Oral TabletIndications:D DD (degenerative disc disease), lumbosacral Take 1 Tab by mouth nightly. 30 Tab 03/02/2020 04/05/2020 simvastatin (ZOCOR) 40 mg Oral TabletIndications:C oronary artery disease involving [place] heart without angina pectoris, unspecified vessel or lesion type Take 1 Tab by mouth nightly. 30 Tab 03/02/2020 04/05/2020 metoprolol (LOPRESSOR) 25 mg Oral TabletIndications:C oronary artery disease involving [place] heart without angina pectoris, unspecified vessel or lesion type Take 1 Tab by mouth 2 times daily. 60 Tab 03/02/2020 04/05/2020 amLODIPine (NORVASC) 2.5 mg Oral TabletIndications:E ssential hypertension Take 1 Tab by mouth daily. 30 Tab 03/02/2020 04/05/2020 documented in this encounter Miscellaneous Notes * Telephone Encounter - Joycelyn Mccann RMA - 03/02/2020 3:35 PM EDT Left message for patient to call back 30 day supply sent to pharmacy Pt needs appointment before any more refills. * Telephone Encounter - Garcia Ibanez, Krista - 03/02/2020 3:08 PM EDT Tizanidine- Medication Refill Protocol not available for this medication. Routed to office staff. Amlodipine- bp sc Medication Refill Protocol failed due to need for appointment and labs/vitals. java portal developer Reason: Past follow-up date noted by protocol. Protocol required follow-up within 6 months. Last assessed at visit 02/24/2019. There is no appointment scheduled. java portal developer Reason: Blood pressure not on file within 6 months and Serum creatinine not on file within 6 months java portal developer Action: Defer to office. Patient needs labwork or vitals completed. Routed to office staff for outreach for appointment scheduling and labs/vitals. Metoprolol- Medication Refill Protocol failed due to need for appointment and labs/vitals. java portal developer Reason: Past follow-up date noted by protocol. Protocol required follow-up within 6 months. Last assessed at visit 02/24/2019. There is no appointment scheduled. java portal developer Reason: Blood pressure not on file within 6 months and Serum creatinine not on file within 6 months java portal developer Action: Defer to office. Patient needs labwork or vitals completed. Routed to office staff for outreach for appointment scheduling and labs/vitals. Simvastatin- Medication Refill Protocol failed due to need for appointment and labs/vitals. java portal developer Reason: Past follow-up date noted by protocol. Protocol required follow-up within 12 months. Last assessed at visit 02/24/2019. There is no appointment scheduled. java portal developer Reason: Lipid panel not on file within 12 months java portal developer Action: Defer to office. Patient needs labwork or vitals completed. Routed to office staff for outreach for appointment scheduling and labs/vitals. documented in this encounter Plan of Treatment Not on file documented as of this encounter Goals Goal Patient Goal Type Associated Problems Recent Progress Patient-Stated? Author Blood Pressure < 140/90 Blood Pressure 112/78(2022 8:50 AM EDT) No Gemma Ann RMA Eat better, exercise, reach an ideal body weight General No Dinah Kennedy RMAsh Stay Tobacco Free Lifestyle No Dinah Kennedy RMAsh HDL > 40 Result Component 44(12/20/2022 11:53 AM EDT) No Gemma Ann RMAsh HEMOGLOBIN A1C < 7.0 Result Component 5.1( 11:53 AM EDT) No Gemma Ann RMAsh LDL Direct < 130 Result Component No Gemma Ann RMAsh LDL CALC < 130 Result Component 61(12/20/2022 11:53 AM EDT) No Gemma Ann RMAsh Weight < 200 lb (90.719 kg) Weight 151 lb (68.5 kg)( 8:50 AM EDT) No Gemma Ann RMA documented as of this encounter Visit Diagnoses Diagnosis Essential hypertension Unspecified essential hypertension Coronary artery disease involving [place] heart without angina pectoris, unspecified vessel or lesion type DDD (degenerative disc disease), lumbosacral Degeneration of lumbar or lumbosacral intervertebral disc documented in this encounter Discontinued Medications Medication Sig Discontinue Reason Start Date End Da te amLODIPine (NORVASC) 2.5 mg Oral TabletIndications:Essentia l hypertension Take 1 Tab by mouth daily. Reorder 12/22/2019 03/02/2020 metoprolol (LOPRESSOR) 25 mg Oral TabletIndications:Coronary artery disease involving [place] heart without angina pectoris, unspecified vessel or lesion type Take 1 Tab by mouth 2 times daily. Reorder 12/22/2019 03/02/2020 simvastatin (ZOCOR) 40 mg Oral TabletIndications:Coronary artery disease involving [place] heart without angina pectoris, unspecified vessel or lesion type Take 1 Tab by mouth nightly. Reorder 12/22/2019 03/02/2020 tiZANidine (ZANAFLEX) 4 mg Oral TabletIndications:DDD (degenerative disc disease), lumbosacral Take 1 Tab by mouth nightly. Reorder 12/22/2019 03/02/2020 documented as of this encounter Additional Health Concerns Assessment Noted Time A fall risk assessment has been complete d for the patient 10/02/2018 8:27 AM EDT documented as of this encounter Care Teams Slope Hoist Operator Relationship Specialty Start Date End Date Michelle Finley MD [address] [place] [address] PCP - General Family Medicine 09/13/13 02/17/24 Chani Drew MD [address] [place] [address] Internal Medicine-Cardiovascu lar Disease 10/31/14 Etta Mckee Case Process Improvement Manager 10/02/21 10/31/21 Julienne Duffy, GAVINO Formula Technician 07/16/23 08/23/23 documented as of this encounter
[2025-06-22] MEDS: ISOTOPE MYOVIEW (PER STUDY) 1 DOSE IV (14:36)
[2025-06-22] MEDS: SODIUM CHLORIDE 0.9% 10ML SYR (RAD ONLY) 10 ML IV ×2 (14:36)
== END 2025-06-22 23:59 | disposition home or self-care (01) ==
LOC: RAD 12:48
PROVIDERS: PCP Family Medicine; Visit Provider Nurse Practitioner
DX: I25.10 Atherosclerotic heart disease of native coronary artery without angina pectoris (principal); I10 Essential (primary) hypertension; E78.00 Pure hypercholesterolemia, unspecified; I25.2 Old myocardial infarction; R94.39 Abnormal result of other cardiovascular function study
CPT/HCPCS: 78452; 93016; 93017; 93018; 93306; A9502; J2785

== ENCOUNTER 2025-06-22 15:43 | Emergency (ER) | payer MEDICARE, SELFPAY ==
[2025-06-22 15:45] VITALS: BP 119/72; PULSE 67; RESP 20; TEMP 36.7; O2SAT 96; BMI 34.7
--- NOTE | 2025-06-22 15:54 | ED_ITS ---
<Statement entered by Dotty Joya DO - 06/22/25 17:52> I was consulted by the MELISA, and we discussed the complexity of problems being addressed. I approve the treatment and management plan for this patient's care in the emergency department, thus performing a substantial portion of the medical decision making. Dotty Joya DO Discharge Plan Disposition Patient Disposition: Home, Self-Care Condition: Good Prescriptions Prescriptions: No Action acetaminophen 500 mg tablet 500 mg PO Q6H PRN (Reason: Pain) meclizine 25 mg tablet 25 mg PO TID nitroglycerin 0.4 mg tablet, sublingual 0.4 mg sublingual Q5M PRN (Reason: Chest Pain) Rx Instructions: do not exceed 3 doses per episode rosuvastatin 40 mg tablet 40 mg PO DAILY buspirone 5 mg tablet 5 mg PO BID cyanocobalamin (vitamin B-12) 1,000 mcg/mL solution 1,000 mcg IM QMONTH Aplisol 5 tub. unit /0.1 mL solution intradermal nystatin [Nyamyc] 100,000 unit/gram powder 100,000 unit topical BID cetirizine 10 mg tablet 5 mg PO DAILY bupropion HCl 150 mg tablet extended release 24 hr 150 mg PO ONCE ondansetron 4 mg tablet,disintegrating 4 mg PO DAILY PRN (Reason: Nausea) potassium chloride 20 mEq tablet extended release 20 meq PO DAILY rivastigmine tartrate 1.5 mg capsule 1.5 mg PO BID Qty: 60 7RF aspirin [Adult Low Dose Aspirin] 81 mg tablet,delayed release (DR/EC) 81 mg PO DAILY carbidopa-levodopa 25-100 mg tablet extended release 1 tab PO TID Qty: 90 4RF metoprolol tartrate 25 MG tablet 25 mg PO BID albuterol sulfate 90 mcg/actuation HFA aerosol inhaler 2 puff INHALATION Q4HP PRN (Reason: Wheezing) Patient Comments: INHALE 2 PUFFS BY MOUTH INTO THE LUNGS EVERY 4 HOURS NEEDED FOR WHEEZING tramadol 50 mg tablet 50 mg PO TID PRN (Reason: pain) Qty: 60 0RF omeprazole 40 mg capsule,delayed release(DR/EC) 20 mg PO DAILY amlodipine 2.5 MG tablet 2.5 mg PO DAILY Referrals Follow up/Referrals: Michelle Finley [Primary Care Provider, Medical] - See instructions Timoteo Dillon MD [Staff Physician, Cardiology] - See instructions Clinical Impressions Clinical Impression: Acute hypotension Instructions Patient Instructions: DI for Hypotension Print Language Print Language: Georgian Discharge ED Provider: Dotty Joya General Adult HPI General Chief complaint: Dizziness Stated complaint: Bp drop in office Time Seen by Provider: 06/22/25 15:54 History of Present Illness HPI narrative: 80-year-old female presents the emergency department at the request of stress test staff. Patient was at this facility getting a stress test however after she completed the test her blood pressure was low so she was sent to ER for evaluation. Upon arrival to the emergency department patient has no complaints and states she is feeling fine her pressure was normal tensive. Related Data Home Medications ?Medication ?Instructions ?Recorded ?Confirmed aspirin 81 mg tablet,delayed 81 mg PO DAILY HEART HEA LTH 01/12/18 06/08/25 release (Adult Low Dose Aspirin) amlodipine 2.5 mg tablet 2.5 mg PO DAILY Hypertension 03/16/18 06/08/25 metoprolol tartrate 25 mg tablet 25 mg PO BID Hyperten juvenal 09/16/19 06/08/25 albuterol sulfate 90 mcg/actuation 2 puff inhalation Q 4HP PRN Wheezing 11/09/22 06/08/25 aerosol inhaler acetaminophen 500 mg tablet 500 mg PO Q6H PRN Pain 06/08/25 buspirone 5 mg tablet 5 mg PO BID 08/02/24 5 cyanocobalamin (vitamin B-12) 1,000 mcg IM QMONTH 07/0706/08/25 1,000 mcg/mL injection solution meclizine 25 mg tablet 25 mg PO TID 08/02/24 nitroglycerin 0.4 mg sublingual 0.4 mg sublingual Q5M PRN Chest 08/02/24 06/08/25 tablet Pain nystatin 100,000 unit/gram topical 100,000 unit topica l BID 08/02/24 06/08/25 powder (Nyamyc) rosuvastatin 40 mg tablet 40 mg PO DAILY 08/02/2410/28 tuberculin PPD 5 tub. unit/0.1 mL intradermal 08/02/24 06/08/25 intradermal injection solution (Aplisol) bupropion HCl 150 mg 24 hr tablet, 150 mg PO ONCE 09/0306/08/25 extended release omeprazole 40 mg capsule,delayed 20 mg PO DAILY GERD 0 09/13/24 06/08/25 release ondansetron 4 mg disintegrating 4 mg PO DAILY PRN Naus ea 03/21/25 06/08/25 tablet potassium chloride 20 mEq 20 meq PO DAILY 03/21/2510/28 tablet,extended release cetirizine 10 mg tablet 5 mg PO DAILY 06/08/2506/08 Previous Rx's ?Medication ?Instructions ?Recorded tramadol 50 mg tablet 50 mg PO TID PRN pain #60 ta bs 11/09/22 carbidopa ER 25 mg-levodopa 100 mg 1 tab PO TID #90 ta bs 12/06/24 tablet,extended release rivastigmine tartrate 1.5 mg 1.5 mg PO BID Memory loss #60 caps 03/21/25 capsule Allergies Allergy/AdvReac Type Severity Reaction Status Date / Time cephalexin (From Keflex) Allergy Intermediate Other Verified 06/08/25 13:32 erythromycin base (From Allergy Intermediate Other Verified 06/08/25 13:32 Erythrocin) Sulfa (Sulfonamide Allergy Intermediate Other Verified 06/08/25 13:32 Antibiotics) oxycodone (From Percocet) Allergy Mild Other Verified 06/08/25 13:32 acetaminophen (From Percocet) Allergy Other Verified 06/08/25 13:32 [facility] Disclaimer: The information contained in this section may have been updated after the patient was seen, as this information can be updated by other users. Medical History (Updated 06/22/25 @ 16:36 by Jessica Cordoba) SOB (shortness of breath) History of ulcer disease History of gastroesophageal reflux (GERD) History of depression History of dementia History of CVA (cerebrovascular accident) History of COPD History of asthma History of cardiac arrhythmia History of anxiety HTN (hypertension) HLD (hyperlipidemia) CAD (coronary artery disease) Chest pain Sciatica Surgical History History of cholecystectomy History of hysterectomy History of left hip replacement History of coronary artery stent placement Family History Other Cancer Coronary artery disease Diabetes Hyperlipidemia Polio Social History Smoking Status: Never smoker alcohol intake: never substance use type: denies use current occupational status: retired Travel in the last 8 weeks?: None household members: none marital status: caffeine: Yes Have you lived/traveled outside US in past 30 days?: No Contact w/someone who lives/traveled outside US past 30 days?: No Exposure to someone with infectious disease in past 14 days?: No Do you have a fever (greater than 100.4 F or 38 C)?: No Have you tested positive for COVID-19?: No Exposed to someone with COVID-19 in past 14 days?: No Do you have a sore throat?: No Do you have a cough?: No Do you have any weakness?: No Do you have any diarrhea?: No Are you experiencing any unusual bleeding?: No Do you have any muscle aches/pain?: No Do you have any abdominal pain?: No Are you experiencing loss of taste or smell?: No Other Medical History Have you received the Flu Vaccine for this season: No Have you received the Pneumonia Vaccine: Yes ROS Obtained: Yes other Physical Exam Narrative Physical exam: General: Awake, aware, in no acute distress HEENT: Normocephalic, no evidence of trauma CV: RRR, no murmurs, rubs, or gallops Pulm: CTA bilaterally with no rhonchi, rales, wheezes ABD: Nontender, no swelling, guarding, or rebound tenderness Psych, appropriate mood and affect General General appearance: alert Respiratory Respiratory exam: Present normal lung sounds bilaterally Cardiovascular Cardiovascular exam: Present regular rate Neurological Exam Neurological exam: Present alert Medical Decision Making Medical Records Screening: Per USPSTF and CDC recommendations, given the prevalence of disease in our region, it is our hospital?s policy to screen for HIV and viral Hepatitis for all patients aged 18 and over and those with ongoing risk factors. Cj Inquiry Pt receiving controlled substance: No Vital Signs: 06/22/25 15:45 Temperature 98.1 F Temperature Source Oral Pulse Rate [Left Radial] 67 Respiratory Rate 20 Blood Pressure [Right Arm] 119/72 Blood Pressure Mean [Right Arm] 87 02 Sat by Pulse Oximetry 96 Oxygen Delivery Method Room Air Medical Decision Narrative: Initial impression of presenting illness: 80-year-old female presents to the emergency department for evaluation of low blood pressure. Patient was getting a stress test done at this facility and when she completed the test they noticed that her blood pressure was low. Upon arrival to the emergency department patient has no complaints and her pressure is normal tensive. Differential diagnosis includes but is not limited to: Dehydration, hypoglycemia, cardiac arrhythmia, ACS Patient arrives hemodynamically stable, afebrile, without respiratory distress with vital signs interpreted by myself. Initial physical exam unremarkable. Patient living all extremities without difficulty. She has no focal neurological deficits. 5 out of 5 strength in all extremities as well as intact sensation and 2+ pulses. Initial diagnostic plan: Observation, p.o. challenge Disposition: Patient was reevaluated by myself and is tolerating p.o. intake without difficulty. Her vital signs have remained stable. She has not had any episodes of hypotensive. She continues to state that she feels fine with no complaints. Advised patient that we will discharge home. Recommended she continue with all previously prescribed medications. Also recommend that she follow-up with her primary care as well as cardiology for any ongoing issues. Instructed to return to the emergency department with any new or worsening symptoms. Patient is agreeable to plan of care. Critical Care Critical Care Time Critical Care Time: No
--- OUTSIDE RECORDS SUMMARY | 2025-06-22 16:02 | XMS_ITS | Clinical Summary ---
Author Organization [facility] Address [address] [place] [address] Care Team Providers Care Graphic Artist Name Role Phone Michelle Finley MD Primary Care Provider [phone] Allergies Active Allergy Reactions Criticality Noted Date [...] displaced right transverse process fracture of L1. [facility] Resolved Problems Problem Noted Date Diagnosed [...] place to sleep or slept in a care home (including now)? No 08/17/2023 Utilities Answer Date [...] 04/15/2024 04/15/2023, 03/25/2022, 05/11/2021, Additional history exists [id number] Vaccine ( season) 2025 10/01/2021, 04/06/2021, 12/22/2020 [...] patient's age to complete this topic Insurance [facility] MEDICARE Advance Directives * Full Code (Latest Code Status on File) Date Activated Date Inactivated Comments 08/15/2023 3:17 AM 08/19/2023 1:40 PM Question Answer Comments Patient has decision-making capacity? Yes Care Teams Graphic Artist Relationship Specialty Start Date End Date Michelle Finley MD [address] [place] [address] PCP - General 11/16/20
--- OUTSIDE RECORDS SUMMARY | 2025-06-22 16:02 | XMS_ITS | Encounter Summary ---
Author Organization [place] [address] Care Team Providers Care Mds Coordinator Name Role Phone Michelle Finley MD Primary Care Provider [phone] Chani Drew MD Unavailable Etta Mckee Unavailable Unavailable Julienne Duffy MAP COLORER Unavailable Unava ilable Reason for Visit * Reason Onset Date Comments Medication Refill 03/02/2020 Amlodipine, Si mvastatin, Metoprolol and Tizanidine Encounter Details Date Type Department Care Team (Late st Contact Info) Description 03/02/2020 Refill [facility] [address] [place] [address] Michelle Finley MD [address] [place], [place] [id number] Medication Refill (Amlodipine, Simvastatin, Metoprolol and Tizanidine) [...] mg Oral TabletIndications:C oronary artery disease involving akutan heart without angina pectoris, unspecified vessel or lesion type Take 1 Tab by mouth nightly. 30 Tab 03/02/2020 04/05/2020 metoprolol (LOPRESSOR) 25 mg Oral TabletIndications:C oronary artery disease involving akutan heart without angina pectoris, unspecified vessel or [...] due to need for appointment and labs/vitals. investigator Reason: Past follow-up date noted by protocol. Protocol required follow-up within 6 months. Last assessed at visit 02/24/2019. There is no appointment scheduled. investigator Reason: Blood pressure not on file within 6 months and Serum creatinine not on file within 6 months investigator Action: Defer to office. Patient needs labwork or vitals completed. Routed to office staff for outreach for appointment scheduling and labs/vitals. Metoprolol- Medication Refill Protocol failed due to need for appointment and labs/vitals. investigator Reason: Past follow-up date noted by protocol. Protocol required follow-up within 6 months. Last assessed at visit 02/24/2019. There is no appointment scheduled. investigator Reason: Blood pressure not on file within 6 months and Serum creatinine not on file within 6 months investigator Action: Defer to office. Patient needs labwork or vitals completed. Routed to office staff for outreach for appointment scheduling and labs/vitals. Simvastatin- Medication Refill Protocol failed due to need for appointment and labs/vitals. investigator Reason: Past follow-up date noted by protocol. Protocol required follow-up within 12 months. Last assessed at visit 02/24/2019. There is no appointment scheduled. investigator Reason: Lipid panel not on file within 12 months investigator Action: Defer to office. Patient needs labwork [...] Kennedy RMAsh Stay Tobacco Free Lifestyle No Dianh Kennedy RMAsh HDL > 40 Result Component [...] Unspecified essential hypertension Coronary artery disease involving akutan heart without angina pectoris, unspecified vessel or lesion type DDD (degenerative disc disease), lumbosacral Degeneration of lumbar or lumbosacral intervertebral disc documented in this encounter Discontinued Medications Medication Sig Discontinue Reason Start Date End Da te amLODIPine (NORVASC) 2.5 mg Oral TabletIndications:Essentia l hypertension Take 1 Tab by mouth daily. Reorder 12/22/2019 03/02/2020 metoprolol (LOPRESSOR) 25 mg Oral TabletIndications:Coronary artery disease involving akutan heart without angina pectoris, unspecified vessel or lesion type Take 1 Tab by mouth 2 times daily. Reorder 12/22/2019 03/02/2020 simvastatin (ZOCOR) 40 mg Oral TabletIndications:Coronary artery disease involving akutan heart without angina pectoris, unspecified vessel or [...] documented as of this encounter Care Teams Mds Coordinator Relationship Specialty Start Date End Date Michelle Finley MD [address] [place] [address] PCP - General Family Medicine 09/13/13 02/17/24 Chani Drew MD [address] [place] [address] Internal Medicine-Cardiovascu lar Disease 10/31/14 Etta Mckee Case Supplier Manager 10/02/21 10/31/21 Julienne Duffy, GAVINO Occupational Therapy Director 07/16/23 08/23/23 documented as of this encounter
--- OUTSIDE RECORDS SUMMARY | 2025-06-22 16:02 | XMS_ITS | Clinical Summary ---
Author Organization [facility] Address [address] [place] [address] Phone Care Team Providers Care Test Skein Winder Name Role Phone Chani Drew MD Unavailable [phone] Allergies Active Allergy Reactions Criticality Noted Date [...] mg Oral TabletIndication s:Coronary artery disease involving samish heart without angina pectoris, unspecified vessel or lesion type Take 1 Tablet by mouth nightly. 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 No 08/13/2023 Housing Stability Vital [...] Ann RMA Medical Devices Implanted Type Area Hosting Engineer Device Identifier Shelf Expiration Date Model / Serial / Lot Stent Coronary Vision Rx 3.00mm X 15mm - [id number] Implanted:Qty: 1 on 03/28/2010 at [facility] DEV [id number] / / Lens Intraocular 24.5 Diopter Acrysof Iq 13.0mm Length 6.0mm Aspheric Optic 0 Degree Modified-L Haptic - [id number] Implanted:Qty: 1 on 07/13/2012 by Gildardo Rodríguez MD at [facility] Right: Eye [facility]:SURG 11/10/2016 [id number] / [id number] / Procedures Procedure Name Priority Date/Time [...] EST) COLOGUARD CLINICAL REPORT Positive( A) Negative [employer] Comment: POSITIVE TEST RESULT. A positive Cologuard [...] (Jim Marks al, N Engl J Med 2014;370(14):0593-7313.) Cologuard may produce a false negative or false positive result (no colorectal cancer or precancerous polyp present at colonoscopy follow up). A negative Cologuard test result does not guarantee the absence of CRC or advanced adenoma (pre-cancer). The current Cologuard screening interval is every 3 years. ([place] [employer] and U.S. Multi-Society Task Force). Cologuard performance data in a 10,000 patient pivotal study using colonoscopy as the reference method can be accessed at the following location: [email or web address]/results. Additional description of the Cologuard test process, warnings and precautions can be found at [email or web address]. Stool 06/04/2022 1:25 PM EST 06/06/2022 4:33 PM EST Michelle Finley MD EXACT SCIENCE - ORDERABLES Fin al Result Performing Organization Address [facility] Co de Phone Number [place], [employer] [address] [place] [address], [facility] [employer] [address] [place] [address] * HEPATITIS C ANTIBODY - SCREENING (09/25/2016 11:19 AM EDT) Hep C Ab Negative Negative [facility] Blood specimen (specimen) 09/25/2016 11:19 AM EDT 09/25/2016 5:06 PM EDT Michelle Finley MD HEMATOLOGY ORDERABLES Final Re sult Performing Organization Address City/[facility] de Phone Number [facility] [address] [place] [address] * DX BONE DENSITY AXIAL SKELETON (09/23/2013 [...] PPO MR MEDICARE PPO MR Care Teams Test Skein Winder Relationship Specialty Start Date End Date Chani Drew MD [address] [place] [address] Internal Medicine-Cardiovascular Disease 10/31/14
[2025-06-22 16:30] VITALS: BP 137/89; PULSE 64; RESP 21; O2SAT 94
[2025-06-22 16:33] VITALS: BP 137/78; PULSE 75; RESP 20; TEMP 36.7; O2SAT 95
[2025-06-22 16:43] VITALS: BP 137/82; PULSE 80; RESP 20; TEMP 36.7; O2SAT 98
== END 2025-06-22 16:50 | disposition home or self-care (01) ==
PROVIDERS: Emergency Provider Student in an Organized Health Care Education/Training Program; PCP Family Medicine
DX: I95.9 Hypotension, unspecified (principal)
CPT/HCPCS: 99282